=== PATIENT | male | born 1950 | race Caucasian/White ===

== ENCOUNTER → 2024-07-02 | Outpatient (CLI) | payer MEDICARE, BC, SELFPAY ==
--- NOTE | 2024-07-02 | XR_ITS ---
Examination: PA lateral chest 2 views Technique: Upright PA lateral chest 2 views Exam date and time: July 02, 2024 1211 hrs. Comparison December 06, 2023 Indications: Extensive bilateral cavitary parenchymal disease on chest x-ray December 25, [address] chest October 02, 2023 Findings: Worsening cavitary parenchymal disease in the left lung Significant parenchymal disease in the right upper lobe Normal heart size Mild hyperexpansion Impression: Worsening cavitary parenchymal disease, especially in the left lung with bronchiectasis Consider repeat high resolution CT chest without contrast
[2024-07-02 13:19] LABS: Cardiac Risk Estimate 5.7 RATIO (4.0-6.7); Cholesterol 148 mg/dL (132-200); HDL Cholesterol 26 mg/dL (40-60); LDL Cholesterol,Calculated 98 mg/dL (0-130); Triglycerides 119 mg/dL (30-150)
== END | disposition home or self-care (01) ==
LOC: CDIM 11:40 → COPL 12:16
PROVIDERS: PCP Family Medicine; Referring Provider Internal Medicine Cardiovascular Disease; Visit Provider Specialist
DX: J98.4 Other disorders of lung (principal); J47.9 Bronchiectasis, uncomplicated; E78.00 Pure hypercholesterolemia, unspecified
CPT/HCPCS: 36415; 71046; 80061

== ENCOUNTER 2024-07-29 16:48 | Inpatient (IN) | payer MEDICARE, BC, SELFPAY ==
[2024-07-29 16:52] VITALS: BP 123/67; PULSE 92; RESP 16; TEMP 36.6; O2SAT 93; BMI 18.9
[2024-07-29 17:06] VITALS: PULSE 61; RESP 17; O2SAT 88
--- NOTE | 2024-07-29 17:11 | XR_ITS ---
Examination: CT pelvis without intravenous contrast. 2-D sagittal and coronal reconstructions. Date and time of exam:July 29, 2024 1756 hours INDICATIONS: Ground-level fall today with injury to the pelvis, pelvic and hip pain CTDI: vol (mGy) :4.96 DLP: (mGycm) : 174 Technique: Multiple 3 mm axial sections of the pelvis have been obtained with the 64 slice high resolution scanner. 2-D sagittal and coronal reconstructions. Low dose protocols were performed. One or more of the following dose reduction techniques were used; automated exposure control, adjustment of the mA and/or KV according to patient size, use of iterative reconstruction technique. Findings: Prominent osteopenia Iliac bones acetabular regions intact Hips appear intact no hip dislocations Acute fracture fifth sacral segment with angulation and 2 mm offset, sagittal image 121 No pelvic hematoma Urinary bladder intact IMPRESSION: Acute fracture fifth sacral segment with angulation and mild offset
--- NOTE | 2024-07-29 17:11 | XR_ITS ---
Examination: CT lumbar spine, without contrast. 2-D sagittal reconstructions. 2-D coronal reconstructions. 3-D reconstructions. Date and time of exam:July 29, 2024 1756 hours INDICATIONS: Ground-level fall today with injured lower back, lower back and pelvic pain CTDI: vol (mGy):14.3 DLP: (mGycm):480 Technique: Multiple 1.25 mm axial sections of the lumbar spine without intravenous contrast have been obtained. 2-D sagittal and coronal reconstructions have been obtained. 3-D reconstructions have been obtained. Low dose protocols were performed. One or more of the following dose reduction techniques were used; automated exposure control, adjustment of the mA and/or KV according to patient size, use of iterative reconstruction technique. Findings: Severe osteopenia Acute compression fracture T12, depression superior endplate, reduction in height 20% Retropulsion of the posterior superior margin of this vertebral body 2 mm The pedicles and laminae at this level are intact No lumbar fracture Advanced disc narrowing L4-L5 IMPRESSION: Acute mild compression fracture T12
--- NOTE | 2024-07-29 17:11 | EKG_ITS ---
[facility] Test Date: 2024-07-29 Pat Name: GARFIELD HUYNH Department: Room: - Gender: Male Director [place]: : [id number] Requested By: Patrick Tomas Order Number: [id number] Reading MD: Patrick Tomas Measurements Intervals [place] Rate: 84 P: 55 [place]: 176 QRS: 75 QRSD: 72 T: 62 QT: 373 QTc: 443 Interpretive Statements SINUS RHYTHM POSSIBLE LEFT ATRIAL ENLARGEMENT [-0.1mV P-WAVE IN V1/V2] Compared to ECG 09/29/2023 05:59:37 No significant changes /store/S0/[id number]/[id number].pdf
--- NOTE | 2024-07-29 17:11 | XR_ITS ---
Examination: CT brain head without contrast. 2-D sagittal coronal reconstructions Date and time of exam:July 29, 2024 at 1755 hours INDICATIONS: Ground-level fall today with injury to the head, followed by head pain and weakness CTDI: vol (mGy):45.8 DLP: (mGycm):914 Technique: Multiple CT axial sections of the brain have been obtained, 5 mm slice thickness. Contrast has not been administered. 2-D sagittal, coronal reconstructions have been obtained Low dose protocols were performed. One or more of the following dose reduction techniques were used; automated exposure control, adjustment of the mA and/or KV according to patient size, use of iterative reconstruction technique. Findings: No significant ventricular enlargement. Intra-axial or extra-axial hemorrhage density is not seen. No mass effect or midline shift Basal cisterns are not remarkable. Fourth ventricle is midline. Cranial vault intact. Impression: Negative for acute hemorrhage, mass effect or midline shift
[2024-07-29 17:16] VITALS: BP 131/68; PULSE 87; RESP 18; TEMP 36.9; O2SAT 93
--- NOTE | 2024-07-29 17:16 | PD.EDFALL ---
ED Fall Injury RME/HPI General Chief Complaint: Fall Stated Complaint: FALL Time Seen by Provider: 07/29/24 17:09 Arrival date/time: 07/29/24 16:48 74 year old male with past medical history dementia, HDL, present to emergency room via EMS with c/o of unwitness GLF at home in the bathroom. per ems found patient sitting on the ground. patient is a poor historian. No fevers No unexplained weight loss of night sweats No recent surgeries or recurrent bacterial infections No IVDU Patient is not immunocompromised Denies any new focal neurological deficits or new motor weakness Denies bowel or bladder incontinence or saddle anesthesia LOCATION: diffuse low back SEVERITY: Symptoms are described as being severe with limitations on activities of daily living QUALITY: Symptoms are described as being dull or achy CONTEXT: GLF in bathroom today DURATION/TIMING: The symptoms started approximately one day ago and have been constant this then. ASSOCIATED SYMPTOMS: The patient is unable to identify any other associated symptoms. MODIFYING FACTORS: The patient is unable to identify any alleviating or aggravating symptoms. PERTINENT ROS: no fevers, no IVDU, denies any ripping or tearing sensations, no associated abdominal pain, no focal neurological deficits and denies any saddle anesthesia, and no bowel or bladder incontinence REVIEW OF SYSTEMS: See History of Present Illness - with the exception of those mentioned in the history of present illness, all other systems reviewed and reported as negative GENERAL: In general the patient is awake, interactive, in an emergency department gurney. HEAD/EYES/EARS/NOSE/THROAT: normo-cephalic, atraumatic, mucus membranes are moist, anicteric, palpebral conjunctiva is pink, trachea is midline. CARDIOVASCULAR: regular rate and regular rhythm, no murmurs, heart sounds are not distant, strong pulses in all four extremities that are equal and symmetric bilateral upper and lower extremities, normal capillary refill. CHEST/PULMONARY: normal chest rise and fall, good air movement, clear to auscultation bilaterally, normal inspiratory to expiratory ratios without evidence of respiratory distress. NECK: No midline/Paraspinal tenderness, no step off ROM/Strenght intact No Kernig and bruzinski sign. No trauma ABDOMEN: soft, not tender, no masses appreciated BACK:+ lower paraspinal tenderness, normal range of motion without pain. NEUROLOGICAL: cranio-facial features are symmetric, moves all four extremities equally without obvious limitations or weakness. EXTREMITY: no tenderness to palpation over the long bones or large joints of the bilateral upper and lower extremities, no joint swelling, no joint erythema, no signs of trauma, no unilateral leg swelling and no peripheral edema. SKIN: warm, dry, well-perfused, no jaundice, no rash, no telangiectasias or petechia. PSYCH: calm, cooperative, no evidence of psychosis or agitation Related Data Home Medications ?Medication ?Instructions ?Recorded ?Confirmed aspirin 81 mg tablet,delayed 81 mg PO BID PRN Pain 09/29/23 09/29/23 release atorvastatin 20 mg tablet 20 mg PO QPM 09/29/23 09/29/23 cholecalciferol (vitamin D3) 125 125 mcg PO QDAY 09/29/23 09/29/23 mcg (5,000 unit) tablet (Vitamin D3) diclofenac sodium 1 % topical gel 2 - 4 g topical BID PRN Pain 09/29/23 09/29/23 donepezil 10 mg tablet 20 mg PO HS 09/29/23 09/29/23 famotidine 40 mg tablet 40 mg PO HS 09/29/23 09/29/23 memantine 5 mg tablet 5 mg PO BID 09/29/23 09/29/23 montelukast 10 mg tablet 10 mg PO QPM 09/29/23 09/29/23 Allergies Allergy/AdvReac Type Severity Reaction Status Date / Time No Known Allergies Allergy Verified 09/20/23 14:03 Course Course Course Narrative: DISPOSITION: Emergency Department nursing documentation was reviewed including triage complaint, associated symptoms, administration of medications, response to therapy and vital signs. Given the history, physical exam, and review of laboratory and imaging studies the patient is determined to be unsafe for discharge and is being moved into the hospital for further diagnostic tests, treatments, stabilization, and monitored response to therapy. I communicated the history, physical exam, pertinent laboratory and imaging studies to the inpatient physician. The inpatient physician has access to electronic copies of all emergency department laboratory testing and imaging studies as well as medications ordered and administered. Quality Measures none Orders Category Date Time Status Admit to Inpatient Status Routine Admission 07/29/24 20:01 Active Patient Condition Routine Admission 07/29/24 20:00 Ordered Activity as Tolerated Routine Care 07/29/24 20:01 Ordered Blood glucose [Bedside Blood Glucose] NOW Care 07/29/24 17:13 Active EKG (ED ONLY) *Do not use* NOW Care 07/29/24 17:12 Completed Notify provider NEEDED Care 07/29/24 20:00 Active Consult to Orthopedic Stat Cons 07/29/24 19:17 Ordered Referral Physical Therapy Routine Cons 07/29/24 20:02 Active Diet Cardiac Diet 07/30/[address] head/brain wo con Stat Exams 07/29/24 17:[address] lumbar spine wo con Stat Exams 07/29/24 17:[address] pelvis wo con Stat Exams 07/29/24 17:11 Completed EKG (ED Only) Stat Exams 07/29/24 17:11 Draft XR chest 1V portable Stat Exams 07/29/24 20:00 Ordered Basic Metabolic Panel AM DRAW Lab 07/30/24 05:00 Ordered Basic Metabolic Panel AM DRAW Lab 07/31/24 05:00 Ordered Basic Metabolic Panel AM DRAW Lab 08/01/24 05:00 Ordered CBC AM DRAW Lab 07/30/24 05:00 Ordered CBC AM DRAW Lab 07/31/24 05:00 Ordered CBC AM DRAW Lab 08/01/24 05:00 Ordered CBC Stat Lab 07/29/24 18:16 Completed CMP [Comprehensive Metabolic Panel] Stat Lab 07/29/24 18:16 Results Procalcitonin Stat Lab 07/29/24 20:00 Ordered Troponin I Stat Lab 07/29/24 18:16 Results UA [Urinalysis] Stat Lab 07/29/24 20:00 Ordered Acetaminophen Tab [Tylenol Tab] Med 07/29/24 20:00 Active 650 mg PO Q6H PRN Enoxaparin [Lovenox] Med 07/30/24 09:00 Ordered 40 mg SC QDAY HYDROcodone*/APAP 5/325 [[place] 5/325] Med 07/29/24 20:00 Active 1 tab PO Q4HR PRN Sodium Chloride 0.9% 1000 ml [Ns] 1,000 ml Med 07/29/24 20:00 Active IV 75 mls/hr Code Status Routine Oth 07/29/24 20:00 Ordered Reevaluation(s) Reevaluation #1: pt is comfortable with admission and getting PT/OT. decline any pain medication, pain is worsen on movement/ambulation Vital Signs Vital signs: Vital Signs Temperature 97.8 F 07/29/24 16:52 Pulse Rate 92 07/29/24 16:52 Respiratory Rate 16 07/29/24 16:52 Blood Pressure 123/67 07/29/24 16:52 Pulse Oximetry (%) 93 L 07/29/24 16:52 Oxygen Delivery Method Room Air 07/29/24 16:52 Procedures -ED EKG Interpretation #1: Date of EK07/29/24 Rate: 84 Interpretation: Reviewed by me EKG Impression: No acute ST-T changes, Sinus arrhythmia and No ischemic changes Fall Patient data External records reviewed:: [facility] previous records and EMS form Clinical information provided by:: EMS Social determinants that could affect healthcare access:: none (dementia ) Patient has the following chronic illnesses:: as stated in chart How is presenting disease/condition affected by chronic disease/condition?: exacerbated by Evaluation data The following diagnostics were reviewed and interpreted by me:: lab results, radiology exam(s) and EKG tracing(s) Lab and/or radiology exams considered but not ordered:: n/a Interpretation Summary: Acute fracture fifth sacral segment with angulation and mild offset No significant ventricular enlargement. Intra-axial or extra-axial hemorrhage density is not seen. No mass effect or midline shift Basal cisterns are not remarkable. Fourth ventricle is midline. Cranial vault intact. ? Impression:? ? Negative for acute hemorrhage, mass effect or midline shift Findings: ? Severe osteopenia Acute compression fracture T12, depression superior endplate, reduction in height 20% Retropulsion of the posterior superior margin of this vertebral body 2 mm The pedicles and laminae at this level are intact No lumbar fracture Advanced disc narrowing L4-L5 ? IMPRESSION: ? Acute mild compression fracture T12 No significant ventricular enlargement. Intra-axial or extra-axial hemorrhage density is not seen. No mass effect or midline shift Basal cisterns are not remarkable. Fourth ventricle is midline. Cranial vault intact. ? Impression:? ? Negative for acute hemorrhage, mass effect or midline shift CBC/CMP wnl trop pending Medications / Prescriptions Medications or Prescriptions considered but not ordered:: n/a Medication administrations:: Medication Administration History Acetaminophen (Acetaminophen 325 Mg Tablet) 650 mg PO Q6H PRN PRN Reason: Fever >101.5 Stop: 08/28/24 19:59 Hydrocodone Bitart/Acetaminophen (Hydrocodone/Apap 5/325 Tablet) 1 tab PO Q4HR PRN PRN Reason: PAIN SCALE 4-6 (Moderate Stop: 08/03/24 19:59 Enoxaparin Sodium (Enoxaparin Sod Inj 40 Mg/0.4 Ml Syringe) 40 mg SC QDAY [facility] Stop: 08/13/24 08:59 Sodium Chloride (Ns) 1,000 mls @ 75 mls/hr IV .[id number] [facility] Stop: 08/28/24 19:59 n/a Consultations Consultation(s) initiated? (list below): Yes Consultation #1 (Physician, Specialty, Details): 1910 dr. krishnan, no surgery intervention, admission to set up out patient PT Consultation #2 (Physician, Specialty, Details): [address] Major will accept patient for admission Diagnosis Fall Differential Diagnosis: syncope, compression fracture and other (anemia, mi/nstemi, contusion ) Most likely diagnosis given after review of the tests above:: back, sacral fracture Admission Indicated Admission indicated?: indicated Admission Request Was there a request for admission?: Yes Admission Attestation Admission request attestation: Discussed case with [] from Hospitalist service regarding admission. Discussed patients ED course, exam findings, labs, and radiology results. The Hospitalist [agrees,declines] to accept the patient for admission. Disposition Plan Disposition Plan: Admit Discharge Plan Plan Patient Disposition: Admit Acute Care w/in Hospital Prescriptions/Referrals Prescriptions/Med Rec: No Action atorvastatin 20 mg Tablet 20 mg PO QPM donepezil 10 mg tablet 20 mg PO HS Patient Comments: TAKE 2 TABLET (20 MG) BY ORAL ROUTE ONCE DAILY IN THE EVENING famotidine 40 mg tablet 40 mg PO HS Patient Comments: TAKE 1 TABLET BY MOUTH EVERY DAY AT BEDTIME FOR 90 DAYS aspirin 81 mg Tablet,Delayed Release (Dr/Ec) 81 mg PO BID PRN (Reason: Pain) montelukast 10 mg Tablet 10 mg PO QPM memantine 5 mg tablet 5 mg PO BID diclofenac sodium 1 % gel 2 - 4 g TOPICAL BID PRN (Reason: Pain) Patient Comments: APPLY 2-4G EXTERNALLY TWICE A DAY NEEDED 30 DAYS cholecalciferol (vitamin D3) [Vitamin D3] 125 mcg (5,000 unit) Tablet 125 mcg PO QDAY Referrals: No Primary/Family,Physician [Primary Care Provider] - In 1 week Problem List Clinical Impression: Closed T12 fracture, Closed sacral fracture Patient/Caregiver Discharge Instructions Print Language: Greek Stand Alone Forms: [employer] Award Info., Patient Portal Info Letter
--- NOTE | 2024-07-29 17:50 | PC.NURSE ---
Patient left floor to get a procedure.
[2024-07-29 19:05] VITALS: BP 131/68; PULSE 84; RESP 3; TEMP 36.5; O2SAT 94
--- NOTE | 2024-07-29 19:08 | PC.NURSE ---
Patrick HUITRON at bedside speaking with daughter at bedside regarding results and plan of care.
[2024-07-29 19:10] LABS: Basophils # (Auto) 0.1 Thou/mm3 (0.0-0.2); Basophils % (Auto) 1 % (0-2.5); Eosinophils % (Auto) 0 % (0-10); Hemoglobin 11.2 g/dL (13.5-16.0); Immature Granulocytes % (Auto) 1 % (0-0); Immature Granulocytes Auto 0.12 Thou/mm3 (0.00-0.00); Lymphocytes # (Auto) 1.4 Thou/mm3 (1.0-4.8); Lymphocytes % (Auto) 10 % (10-50); Mean Corpuscular HGB Conc 33.9 g/dl (31.0-37.0); Mean Corpuscular Hemoglobin 27.7 pg (25.0-35.0); Mean Corpuscular Volume 82 fL (80-100); Monocytes # (Auto) 1.5 Thou/mm3 (0.0-0.8); Monocytes % (Auto) 10 % (0-12); Neutrophils # (Auto) 11.1 Thou/mm3 (1.8-7.7); Neutrophils % (Auto) 78 % (37-80); Nucleated Red Blood Cell % 0 /100 WBC (0); Platelet Count 611 Thou/mm3 (140-440); RDW Standard Deviation 46.9 fL (35.1-43.9); Red Blood Count 4.05 Miln/mm3 (4.50-5.90); White Blood Count 14.2 Thou/mm3 (3.8-10.6)
[2024-07-29 19:58] LABS: Alanine Aminotransferase 19 U/L (10-49); Albumin, Serum 3.4 gm/dL (3.4-4.8); Albumin/Globulin Ratio 0.9 (1.2-2.2); Alkaline Phosphatase 169 U/L (46-116); Anion Gap 9 (7-16); Aspartate Amino Transferase 29 U/L (0-34); BUN/Creatinine Ratio 15 Ratio (12-20); Bilirubin,Total 0.5 mg/dL (0.3-1.2); Blood Urea Nitrogen 9 mg/dL (9-23); Calcium 8.8 mg/dL (8.3-10.6); Calcium (Corrected) 9.3 mg/dL (8.5-10.1); Carbon Dioxide 27.1 mMol/L (20.0-31.0); Chloride 99 mMol/L (98-107); Creatinine (Component) 0.6 mg/dL (0.6-1.3); Estimated Creatinine Clearance 77.8 mL/min (>60); Globulin 3.8 gm/dL (2.3-3.5); Glucose 93 mg/dL (74-106); Osmolality,Calculated 268 (275-295); Potassium 4.5 mMol/L (3.4-5.1); Sodium 135 mMol/L (136-145); Total Protein 7.2 gm/dL (5.7-8.2); eGFR > 60 See Note
--- NOTE | 2024-07-29 20:00 | XR_ITS ---
Examination: AP chest single view TECHNIQUE: AP portable upright chest single view Exam date and time: July 29, 2024 204 hours INDICATIONS: Admission chest x-ray today, ground-level fall FINDINGS: Worsening bilateral extensive parenchymal disease Normal heart size Significant osteopenia IMPRESSION: Worsening extensive bilateral parenchymal disease, differential would include pneumonia bilaterally superimposed upon extensive bilateral chronic parenchymal disease Please see the CT chest report October 02, 2023
[2024-07-29] MEDS: SODIUM CHLORIDE 0.9% 1000 ML 1,000 ML 75 ML IV (20:11)
--- NOTE | 2024-07-29 20:20 | PD.EVENT ---
Documentation for date of: 07/29/24 Event Note Event Note: A 74-year-old male presented to the ER with the chief complaint of a fall. The patient fell in the bathroom at home while unattended. He was found on the floor and unable to get up. This was the third fall within the past month. He reported back pain following the fall but no head trauma. He has advanced dementia with worsening cognitive function, requiring full assistance at home, where he lives with his . EMS was called, and he was brought to the hospital for further evaluation. There was no report of fever, dizziness, chest pain, or shortness of breath prior to the fall. The patient has a history of advanced dementia, HTN, bronchiectasis, hyperlipidemia, and Spicer's esophagus. He has no surgical history. Current medications include donepezil, vitamin D, ferrous gluconate, cyproheptadine, pantoprazole, memantine, quetiapine, combivent, metoprolol, montelukast, and sertraline. He does not smoke or drink. He has previously been hospitalized for pulmonary issues, including chest tube placement. He uses a walker or wheelchair at home. Home oxygen was being arranged due to SpO2 occasionally dropping to 89?92%. Code status is full; documentation was provided by family. In ER, the patient was initially evaluated with vital signs recorded as temp 97.8, HR 92, RR 16, BP 123/67. Laboratory results revealed WBC 14.2, Hb 11.2, Plt 611, Na 135, K 4.5, BUN [address], [address] demonstrated an acute fracture of the fifth sacral segment with angulation and mild offset, and an acute mild compression fracture of T12. EKG showed sinus rhythm. Ortho was consulted and recommended no surgical intervention. The patient was admitted for inpatient care and to coordinate outpatient PT evaluation. #Sacral and Vertebral Compression Fractures Assessment: - Mechanical fall in elderly patient with advanced dementia. - CT: Acute S5 fracture with angulation/offset; acute mild compression fracture of T12. - No neurological deficits; non-operative per ortho. - History of recurrent falls; underlying mobility limitations (walker/wheelchair use). Plan: - Pain management. - Fall precautions. - PT evaluation for mobility, transfer training, and safe ambulation strategies. - Outpatient bone health workup. #Advanced Dementia Assessment: - Progressive cognitive decline; requires full ADL assistance. - High fall risk. - Behavioral symptoms managed with antipsychotics and antidepressants. Plan: - Continue donepezil, memantine, quetiapine and sertraline. - Monitor behavioral symptoms #Hypertension Assessment: - History of HTN; currently normotensive on metoprolol. - No acute hypertensive complications noted. Plan: - Continue current antihypertensive regimen. - Monitor BP during hospitalization; adjust therapy if clinically indicated.
[2024-07-29 20:35] LABS: Troponin I < 0.002 ng/mL (0.0-0.045)
[2024-07-29 20:48] VITALS: BP 129/74; PULSE 88; RESP 20; TEMP 36.8; O2SAT 96
--- NOTE | 2024-07-29 20:58 | PD.RESHP ---
Documentation for date of: 07/29/24 HPI History of Present Illness Chief complaint: fall down History of present illness: HPI: A 74-year-old male patient with past medical history of dementia, hyperlipidemia, Spicer's esophagus, bronchiectasis, presented to the ED due to recent history of fall down. Patient at baseline is confused and oriented only to self patient was not aware of his presentation and why he is in the hospital. Most of the history was. Taken from the patient's chart. As per the daughter who spoke with the emergency doctor and attending physician patient was found on the floor of the bathroom when he fell down while he was unattended. Reportedly this is his third fall for the past month. After the fall patient reported back pain. 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 There was no history of loss of consciousness or head trauma. At the ED patient was found to have normal vital signs, CBC was significant for WBC of 14.2, hemoglobin 11.2. CMP was within normal limits, urinalysis still pending CT of the brain was negative for any hemorrhage or mass effect, however lumbar spine CT showed acute mild compression fracture of T12. Pelvic CT scan showed acute fracture of the fifth sacral segment with angulation and mild offset. EKG was within normal limits. PMH: advanced dementia, bronchiectasis, hyperlipidemia and Spicer's esophagus. PSH: none. SH: No smoking tobacco use illicit drugs. Stopped socially drinking alcohol 2 years ago. Lives with his at home who is his primary oil lease buyer and decision maker. FH: none. Allergies: NKA. Medications: Aspirin, atorvastatin, vitamin D, diclofenac, donepezil, famotidine, memantine, montelukast. Review of Systems Review of Systems ROS Unobtainable: unobtainable due to mental status Exam Vital Signs Temp Pulse Resp BP Pulse Ox O2 Del Method 98.2 F 88 20 129/74 96 Room Air 07/29/24 20:48 07/29/24 20:48 07/29/24 20:48 07/29/24 20:48 07/29/24 20:48 07/29/24 20:48 Narrative Exam GEN: AOx1, able to speak full sentences, temporal wasting. HEENT: NC/AC, oral mucosa moist, neck supple. CVS: RRR, Soft systolic murmur-S2 present, No JVD. RESP: CTAB. GI: Soft, non distended, non tender, NBS. MSK: able to move all 4 limbs, no lower extremity edema. SKIN: warm and dry. 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 Results: Labs 07/29/24 18:16 07/29/24 18:16 Labs: Short CBC 07/29/24 Range/Units 18:16 WBC 14.2 H (3.8-10.6) Thou/mm3 Hgb 11.2 L (13.5-16.0) g/dL Hct 33.0 L (41.0-53.0) % Plt Count 611 H (140-440) Thou/mm3 BMP 07/29/24 18:16 Sodium 135 L Potassium 4.5 Chloride 99 Carbon Dioxide 27.1 BUN 9 Creatinine 0.6 Glucose 93 Calcium 8.8 Cardiac Enzymes 07/29/24 Range/Units 18:16 Troponin I < 0.002 (0.0-0.045) ng/mL Liver Function 07/29/24 Range/Units 18:16 Total Bilirubin 0.5 (0.3-1.2) mg/dL AST 29 (0-34) U/L ALT 19 (10-49) U/L Alkaline Phosphatase 169 H (46-116) U/L Albumin 3.4 (3.4-4.8) gm/dL Quality Measures Quality Measures none Advance care planning discussed with:: patient Medications Home Medications and Allergies Home Medications ?Medication ?Instructions ?Recorded ?Confirmed ?Type aspirin 81 mg tablet,delayed 81 mg PO BID PRN Pain 09/29/23 09/29/23 History release atorvastatin 20 mg tablet 20 mg PO QPM 09/29/23 09/29/23 History cholecalciferol (vitamin D3) 125 125 mcg PO QDAY 09/29/23 09/29/23 History mcg (5,000 unit) tablet (Vitamin D3) diclofenac sodium 1 % topical gel 2 - 4 g topical BID PRN Pain 09/29/23 09/29/23 History donepezil 10 mg tablet 20 mg PO HS 09/29/23 09/29/23 History famotidine 40 mg tablet 40 mg PO HS 09/29/23 09/29/23 History memantine 5 mg tablet 5 mg PO BID 09/29/23 09/29/23 History montelukast 10 mg tablet 10 mg PO QPM 09/29/23 09/29/23 History Allergies Allergy/AdvReac Type Severity Reaction Status Date / Time No Known Allergies Allergy Verified 09/20/23 14:03 Visit Medications Acetaminophen (Acetaminophen 325 Mg Tablet) 650 mg PO Q6H PRN PRN Reason: Fever >101.5 Stop: 08/28/24 19:59 Hydrocodone Bitart/Acetaminophen (Hydrocodone/Apap 5/325 Tablet) 1 tab PO Q4HR PRN PRN Reason: PAIN SCALE 4-6 (Moderate Stop: 08/03/24 19:59 Cyproheptadine HCl (Cyproheptadine Hcl 4 Mg Tablet) 2 mg PO BID [facility]; Protocol Stop: 08/28/24 20:59 Donepezil HCl (Donepezil Hcl 5 Mg Tablet) 10 mg PO DAILY [facility] Stop: 08/29/24 08:59 Enoxaparin Sodium (Enoxaparin Sod Inj 40 Mg/0.4 Ml Syringe) 40 mg SC QDAY [facility] Stop: 08/13/24 08:59 Sodium Chloride (Ns) 1,000 mls @ 75 mls/hr IV .[id number] [facility] Stop: 08/28/24 19:59 Last Admin: 07/29/24 20:11 Dose: 75 mls/hr Memantine (Memantine Hcl 5 Mg Tablet) 5 mg PO BID [facility] Stop: 08/28/24 20:59 Metoprolol Succinate (Metoprolol Succinate Xl 25 Mg Tabcr) 25 mg PO QDAY [facility] Stop: 08/29/24 08:59 Montelukast Sodium (Montelukast Sodium 10 Mg Tablet) 10 mg PO HS [facility] Stop: 08/28/24 20:59 Pantoprazole Sodium (Pantoprazole 40 Mg Tablet) 40 mg PO BID [facility] Stop: 08/28/24 20:59 Quetiapine Fumarate (Quetiapine Fumarate 25 Mg Tablet) 25 mg PO QDAY [facility] Stop: 08/29/24 08:59 Sertraline HCl (Sertraline Hcl 25 Mg Tablet) 50 mg PO HS [facility] Stop: 08/28/24 20:59 Assessment & Plan Plan Summary: A 74-year-old male patient with past medical history of dementia, hyperlipidemia, Spicer's esophagus, bronchiectasis, presented to the ED due to recent history of fall down. Patient at baseline is confused and oriented only to self patient was not aware of his presentation and why he is in the hospital. Patient was admitted for management of T12 and sacral fractures. Assessment and plan #Sacral segment fracture #T12 Vertebral body acute Compression Fractures Assessment: - Mechanical fall in elderly patient with advanced dementia. - CT: Acute S5 fracture with angulation/offset; acute mild compression fracture of T12. - No neurological deficits; non-operative per ortho. - History of recurrent falls; underlying mobility limitations (walker/wheelchair use). Plan: - Orhtopedic Dr Cuello was consulted, Recommendations appreiciated. - Pain management. - Fall precautions. - PT evaluation for mobility, transfer training, and safe ambulation strategies. - Outpatient bone health workup. #Advanced Dementia Assessment: - Progressive cognitive decline; requires full ADL assistance. - High fall risk. - Behavioral symptoms managed with antipsychotics and antidepressants. Plan: - Continue donepezil, memantine, quetiapine and sertraline. - Monitor behavioral symptoms. # Hx of Toney's eosophageaous Plan - Start the patient on protonix 40mg PO BID. #Hypertension Assessment: - History of HTN; currently normotensive on metoprolol. - No acute hypertensive complications noted. Plan: - Continue current antihypertensive regimen. - Monitor BP during hospitalization; adjust therapy if clinically indicated. Hospital Maintenance: FEN: Cardiac diet DVT ppx: Enoxaparin GI ppx: Protonix IV lines: PIV Lopez: None Code s tatus: Full code Dispo: Med-surg Patient's plan and care discussed with my attending, Dr. Pedrito Yanez MD Internal Medicine PGY-2 Attending Provider Attestation/Addendum Pt was evaluated and plan formulated together with the housestaff team. I have reviewed the residents note above and agree with most of its content. Please refer to the residents note for additional details.
[2024-07-29] MEDS: PANTOPRAZOLE 40 MG TABLET PO (21:59)
[2024-07-29 22:31] VITALS: BP 138/81; PULSE 86; RESP 18; TEMP 37.3; O2SAT 91; BMI 18.7
[2024-07-29] MEDS: MEMANTINE HCL 5 MG TABLET PO (22:42)
[2024-07-29] MEDS: MONTELUKAST SODIUM 10 MG TABLET PO (22:42)
[2024-07-29] MEDS: SERTRALINE HCL 25 MG TABLET 50 MG PO (22:42)
[2024-07-30] VITALS (8 sets, daily range): BP systolic 107–146; BP diastolic 64–85; PULSE 73–103; RESP 16–18; TEMP 36.1–37; O2SAT 92–94; BMI 13.0; BMI 18.7
--- NOTE | 2024-07-30 01:01 | PC.RT ---
Consultation complete. pt's oxygen saturation on room air >92%, with clear breath sounds heard throughout. No respiratory distress noted.
[2024-07-30 05:45] LABS: Collection Type, Urine Catheter; Squamous Epithelial Cell,Urine 0 /hpf (0-5)
[2024-07-30 06:02] LABS: Basophils # (Auto) 0.1 Thou/mm3 (0.0-0.2); Basophils % (Auto) 1 % (0-2.5); Eosinophils # (Auto) 0.2 Thou/mm3 (0.0-0.5); Eosinophils % (Auto) 1 % (0-10); Hematocrit 30.7 % (41.0-53.0); Hemoglobin 10.4 g/dL (13.5-16.0); Immature Granulocytes % (Auto) 1 % (0-0); Immature Granulocytes Auto 0.07 Thou/mm3 (0.00-0.00); Lymphocytes # (Auto) 1.6 Thou/mm3 (1.0-4.8); Lymphocytes % (Auto) 13 % (10-50); Mean Corpuscular HGB Conc 33.9 g/dl (31.0-37.0); Mean Corpuscular Hemoglobin 27.8 pg (25.0-35.0); Mean Corpuscular Volume 82 fL (80-100); Monocytes # (Auto) 1.5 Thou/mm3 (0.0-0.8); Monocytes % (Auto) 12 % (0-12); Neutrophils % (Auto) 73 % (37-80); Nucleated Red Blood Cell % 0 /100 WBC (0); Platelet Count 572 Thou/mm3 (140-440); RDW Standard Deviation 46.8 fL (35.1-43.9); Red Blood Count 3.74 Miln/mm3 (4.50-5.90); White Blood Count 12.5 Thou/mm3 (3.8-10.6)
[2024-07-30 06:05] LABS: Bilirubin,Urine Negative (Negative); Blood,Urine Negative (Negative); Clarity,Urine Clear (Clear/Hazy); Color,Urine Yellow (Lt Yel-Yel); Glucose, Urine Negative (Negative); Ketones,Urine Trace (Negative); Leukocyte Esterase,Urine Negative (Negative); Nitrite,Urine Negative (Negative); PH,Urine 6.5 (5.0-7.0); Protein,Urine Negative (Neg - Trace); RBC,Urine 9 /hpf (0-3); Specific Gravity,Urine 1.021 (1.001-1.035); WBC,Urine 1 /hpf (0-5)
[2024-07-30 06:40] LABS: Anion Gap 8 (7-16); BUN/Creatinine Ratio 14 Ratio (12-20); Blood Urea Nitrogen 7 mg/dL (9-23); Calcium 8.6 mg/dL (8.3-10.6); Carbon Dioxide 26.7 mMol/L (20.0-31.0); Chloride 101 mMol/L (98-107); Creatinine (Component) 0.5 mg/dL (0.6-1.3); Estimated Creatinine Clearance 92.1 mL/min (>60); Glucose 81 mg/dL (74-106); Osmolality,Calculated 268 (275-295); Potassium 4.2 mMol/L (3.4-5.1); Sodium 136 mMol/L (136-145); eGFR > 60 See Note
[2024-07-30] MEDS: ENOXAPARIN SOD INJ 40 MG/0.4 ML SYRINGE SC (08:08)
[2024-07-30] MEDS: DONEPEZIL HCL 5 MG TABLET 10 MG PO (08:09)
[2024-07-30] MEDS: PANTOPRAZOLE 40 MG TABLET PO ×2 (08:10→20:17)
[2024-07-30] MEDS: METOPROLOL SUCCINATE XL 25 MG TABCR PO (08:10)
[2024-07-30] MEDS: MEMANTINE HCL 5 MG TABLET PO ×2 (08:10→20:17)
[2024-07-30] MEDS: QUEtiapine FUMARATE 25 MG TABLET PO (08:10)
--- NOTE | 2024-07-30 08:34 | PC.SS ---
Initial assessment: this is 74 year old male admitted for fall. Patient has history of severe dementia and information was obtained by patient's , Callie Goel. Patient lives at home with spouse at confirmed home address on facesheet. Patient utilizes a wheelchair at home to assist with transferring. Patient requires assistance with completion of ADL's. Patient PCP is Dr. Nessa Rodrigues. Patient also followed by Dr. Puentes and Dr. Hernandez. Patient previously aligned with [facility]. Callie informs they will be providing hospital bed to the patient to be delivered this week. Callie is considering SNF placement however would like to see how patient progresses to make determination. Callie to be contacted as alternate surrogate decision maker for the patient. banking services officer to remain available for further needs. D/c plan: [facility] vs.SNF Next of kin: Callie
[2024-07-30] MEDS: SODIUM CHLORIDE 0.9% 1000 ML 1,000 ML 75 ML IV ×2 (08:56→23:47)
--- NOTE | 2024-07-30 12:36 | PC.SS ---
Addendum entered by QUINTIN Powell 07/30/24 16:45: Rounding note: pending pain management. Addendum entered by QUINTIN Powell 07/30/24 12:42: PT Maria Antonia informed she has ordered a back brace for the patient. Original Note: SS update: PT has recommended SNF. is agreeable to SNF. No preferred.
--- NOTE | 2024-07-30 14:12 | CONPN_ITS ---
Subjective Subjective Brief History: t12 fracture Narrative: Patient is a 74yo male with severe dementia with back pain and buttock pain after a fall. He is a poor historian and has severe dementia. His baseline ambulating status is unknown Exam Vital Signs Temp Pulse Resp BP Pulse Ox O2 Del Method 97.0 F 73 17 111/65 93 L Room Air 07/30/24 12:00 07/30/24 12:00 07/30/24 12:00 07/30/24 12:00 07/30/24 12:00 07/30/24 12:00 Additional findings Additional findings: NAD SILT 5/5 strength in IP/Q/H/TA/EHL/FHL bilaterally TTP CT of the lumbar spine demonstrate a t12 compression fracture with no retropulsion and a S5 fracture Objective - Ortho Labs 07/30/24 04:17 07/30/24 04:17 Labs: Laboratory Results - last 24 hr 07/29/24 07/30/24 07/30/24 18:16 04:17 04:45 WBC 14.2 H 12.5 H RBC 4.05 L 3.74 L Hgb 11.2 L 10.4 L Hct 33.0 L 30.7 L MCV 82 82 MCH 27.7 27.8 MCHC 33.9 33.9 RDW Std Deviation 46.9 H 46.8 H Plt Count 611 H 572 H D Neut % (Auto) 78 73 Lymph % (Auto) 10 13 Logan % (Auto) 10 12 Eos % (Auto) 0 1 Baso % (Auto) 1 1 Neut # (Auto) 11.1 H 9.0 H Lymph # (Auto) 1.4 1.6 Logan # (Auto) 1.5 H 1.5 H Eos # (Auto) 0.0 0.2 Baso # (Auto) 0.1 0.1 Immature Gran # (Auto) 0.12 H 0.07 H Absolute Nucleated RBC 0.00 0.00 Immature Gran % 1 H 1 H Nucleated RBC % 0 0 Sodium 135 L 136 Potassium 4.5 4.2 Chloride 99 101 Carbon Dioxide 27.1 26.7 Anion Gap 9 8 BUN 9 7 L Creatinine 0.6 0.5 L Estim Creat Clear Calc 77.8 92.1 eGFR > 60 > 60 BUN/Creatinine Ratio 15 14 Glucose 93 81 Calculated Osmolality 268 L 268 L Calcium 8.8 8.6 Corrected Calcium 9.3 Total Bilirubin 0.5 AST 29 ALT 19 Alkaline Phosphatase 169 H Troponin I < 0.002 Total Protein 7.2 Albumin 3.4 Globulin 3.8 H Albumin/Globulin Ratio 0.9 L Procalcitonin 0.10 Ur Collection Type Catheter Urine Color Yellow Urine Clarity Clear Urine pH 6.5 Ur Specific [place] 1.021 Urine Protein Negative Urine Glucose (UA) Negative Urine Ketones Trace Urine Blood Negative Urine Nitrite Negative Urine Bilirubin Negative Urine Urobilinogen (Auto) 8.0 Ur Leukocyte Esterase Negative Urine RBC 9 H Urine WBC 1 Ur Squamous Epith Cells 0 Urine Bacteria None Assessment & Plan Diagnosis (1) Closed sacral fracture: Status: Acute (2) Closed T12 fracture: Status: Acute Assessment Additional comments: Patient is 74yo male with no neurologic deficits and a sacral and t12 fracture - WBAT - TLSO brace - pt Documentation for date of: 07/30/24
--- NOTE | 2024-07-30 14:31 | ESPR_ITS ---
<Statement entered by Piper Rangel MD - 07/31/24 08:31> Patient was seen and examined by me personally. I have directly supervised and reviewed documentation by the team resident and agree with its findings with any exceptions or additional findings as below. Plan of care was discussed with the attending, Dr. Whitlock. Piper Rangel, PGY-2 Documentation for date of: 07/30/24 Subjective Subjective Interval history: 07/30/2024: Overnight admission for patient with baseline dementia who had an unwitnessed fall and was admitted after CT lumbar spine showed a T12 acute compression fracture along with the fifth sacral segment fracture. Patient seen and examined this morning does in fact have high degree of dementia and is only able to give me his name but not able to give me much history. Patient does respond to questions appropriately but has very poor memory. On examination there is a 5 out of 6 diastolic murmur noted on the left sternal base. At this time, we are completing a syncope workup for the patient as the fall was unwitnessed. Pain is being managed with multimodal analgesia and we are expecting discharge within the next 24 to 48 hours once orthostatic vitals were completed and physical therapy has assessed the patient for placement. Exam Vital Signs Temp Pulse Resp BP Pulse Ox O2 Del Method 97.0 F 73 17 111/65 93 L Room Air 07/30/24 12:00 07/30/24 12:00 07/30/24 12:00 07/30/24 12:00 07/30/24 12:00 07/30/24 12:00 Narrative Exam GEN: Awake, able to speak full sentences, temporal wasting. HEENT: NC/AC, oral mucosa moist, neck supple. CVS: RRR, Soft systolic murmur-S2 present, No JVD. RESP: CTAB. GI: Soft, non distended, non tender, NBS. MSK: able to move all 4 limbs, no lower extremity edema. SKIN: warm and dry. [employer]: AOx1, CN II-XII and Sensation grossly intact. Objective Labs 07/30/24 04:17 07/30/24 04:17 Labs: Laboratory Results - last 24 hr 07/29/24 07/30/24 07/30/24 18:16 04:17 04:45 WBC 14.2 H 12.5 H RBC 4.05 L 3.74 L Hgb 11.2 L 10.4 L Hct 33.0 L 30.7 L MCV 82 82 MCH 27.7 27.8 MCHC 33.9 33.9 RDW Std Deviation 46.9 H 46.8 H Plt Count 611 H 572 H D Neut % (Auto) 78 73 Lymph % (Auto) 10 13 Gregory % (Auto) 10 12 Eos % (Auto) 0 1 Baso % (Auto) 1 1 Neut # (Auto) 11.1 H 9.0 H Lymph # (Auto) 1.4 1.6 Gregory # (Auto) 1.5 H 1.5 H Eos # (Auto) 0.0 0.2 Baso # (Auto) 0.1 0.1 Immature Gran # (Auto) 0.12 H 0.07 H Absolute Nucleated RBC 0.00 0.00 Immature Gran % 1 H 1 H Nucleated RBC % 0 0 Sodium 135 L 136 Potassium 4.5 4.2 Chloride 99 101 Carbon Dioxide 27.1 26.7 Anion Gap 9 8 BUN 9 7 L Creatinine 0.6 0.5 L Estim Creat Clear Calc 77.8 92.1 eGFR > 60 > 60 BUN/Creatinine Ratio 15 14 Glucose 93 81 Calculated Osmolality 268 L 268 L Calcium 8.8 8.6 Corrected Calcium 9.3 Total Bilirubin 0.5 AST 29 ALT 19 Alkaline Phosphatase 169 H Troponin I < 0.002 Total Protein 7.2 Albumin 3.4 Globulin 3.8 H Albumin/Globulin Ratio 0.9 L Procalcitonin 0.10 Ur Collection Type Catheter Urine Color Yellow Urine Clarity Clear Urine pH 6.5 Ur Specific [place] 1.021 Urine Protein Negative Urine Glucose (UA) Negative Urine Ketones Trace Urine Blood Negative Urine Nitrite Negative Urine Bilirubin Negative Urine Urobilinogen (Auto) 8.0 Ur Leukocyte Esterase Negative Urine RBC 9 H Urine WBC 1 Ur Squamous Epith Cells 0 Urine Bacteria None Quality Measures Quality Measures none Advance care planning discussed with:: patient, spouse and child Assessment & Plan Assessment Current Active Medications: Generic Name Dose Route Start Last Admin Trade Name Freq PRN Reason Stop Dose Admin Acetaminophen 650 mg 07/29/24 20:00 Acetaminophen 325 Mg Tablet PO 08/28/24 19:59 Q6H PRN Fever >101.5 Hydrocodone Bitart/Acetaminophen 1 tab 07/29/24 20:00 Hydrocodone/Apap 5/325 Tablet PO 08/03/24 19:59 Q4HR PRN PAIN SCALE 4-6 (Moderate Cyproheptadine HCl 2 mg 07/29/24 21:00 07/30/24 08:19 Cyproheptadine Hcl 4 Mg Tablet PO 08/28/24 20:59 Not Given BID [facility] Protocol Donepezil HCl 10 mg 07/30/24 09:00 07/30/24 08:09 Donepezil Hcl 5 Mg Tablet PO 08/29/24 08:59 10 mg DAILY [facility] Administration Enoxaparin Sodium 40 mg 07/30/24 09:00 07/30/24 08:08 Enoxaparin Sod Inj 40 Mg/0.4 Ml Syringe SC 08/13/24 08:59 40 mg QDAY [facility] Administration Sodium Chloride 1,000 mls @ 75 mls/hr 07/29/24 20:00 07/30/24 08:56 Ns IV 08/28/24 19:59 75 mls/hr .[id number] [facility] Administration Memantine 5 mg 07/29/24 21:00 07/30/24 08:10 Memantine Hcl 5 Mg Tablet PO 08/28/24 20:59 5 mg BID [facility] Administration Metoprolol Succinate 25 mg 07/30/24 09:00 07/30/24 08:10 Metoprolol Succinate Xl 25 Mg Tabcr PO 08/29/24 08:59 25 mg QDAY [facility] Administration Montelukast Sodium 10 mg 07/29/24 21:00 07/29/24 22:42 Montelukast Sodium 10 Mg Tablet PO 08/28/24 20:59 10 mg HS [facility] Administration Pantoprazole Sodium 40 mg 07/29/24 21:00 07/30/24 08:10 Pantoprazole 40 Mg Tablet PO 08/28/24 20:59 40 mg BID [facility] Administration Quetiapine Fumarate 25 mg 07/30/24 09:00 07/30/24 08:10 Quetiapine Fumarate 25 Mg Tablet PO 08/29/24 08:59 25 mg QDAY [facility] Administration Sertraline HCl 50 mg 07/29/24 21:00 07/29/24 22:42 Sertraline Hcl 25 Mg Tablet PO 08/28/24 20:59 50 mg HS [facility] Administration Plan 74-year-old male patient with past medical history of dementia, hyperlipidemia, Spicer's esophagus, bronchiectasis, presented to the ED due to recent history of fall down. Patient at baseline is confused and oriented only to self patient was not aware of his presentation and why he is in the hospital. Patient was admitted for management of T12 and sacral fractures and workup for possible syncope #Syncope, possible Patient presenting with fall, which was unwitnessed On examination patient does have a 5 out of 6 diastolic murmur on auscultation Plan: Orthostatic vitals now Physical therapy Echo ordered #Sacral segment fracture #T12 Vertebral body acute Compression Fractures Mechanical fall in elderly patient with advanced dementia. CT lumbar spine shows: Acute S5 fracture with angulation/offset; acute mild compression fracture of T12. CT pelvis shows: Acute fracture fifth sacral segment with angulation and mild offset No neurological deficits; non-operative per ortho. History of recurrent falls; underlying mobility limitations (walker/wheelchair use). Plan: Orhtopedic Dr Cuello was consulted, Recommendations appreiciated. Dr. Cuello recommends Uydutujr-[id number]-[id number] Orthosis?brace Pain management. Fall precautions. PT evaluation for mobility, transfer training, and safe ambulation strategies. #Advanced Dementia Progressive cognitive decline; requires full ADL assistance. High fall risk. Patient follows Dr. Malhotra outpatient and is on donepezil 20 mg p.o. at bedtime, memantine 5 mg p.o. twice daily, quetiapine and sertraline Plan: Continue home medications # Hx of Toney's eosophageaous Chronic medical condition Plan Continue protonix 40mg PO BID. #Hypertension History of HTN; currently normotensive on metoprolol. No acute hypertensive complications noted. Plan: Continue current antihypertensive regimen. Monitor BP during hospitalization; adjust therapy if clinically indicated. Hospital Management: Lines: PIV Bowel: Senna Diet: Cardiac with Ensure high-protein GI prophylaxis: On Protonix for Spicer's's DVT prophylaxis: Lovenox Dispo: Syncope workup, pain management for T12 compression fracture and sacral segment fracture Code: Full Patient seen and assessed with attending Dr. Whitlock and senior resident Dr. Juan Carlos Cox, PGY-1 Attending Provider Attestation/Addendum I attest that I was physically present for the evaluation, physical examination, lab and imaging review of the patient with the residents. I discussed the case with the residents and agree with the findings and plans of care as documented above. Patient is a 74 years old male with history of dementia, hyperlipidemia, Spicer's esophagus, bronchiectasis who presented to the ED with history of recurrent falls. He was found to have sacral segment fracture and T12 vertebral body acute compression fracture. Patient also has advanced dementia. Patient was admitted overnight for pain management, PT evaluation. At bedside, patient appears comfortable. As per patient's at bedside, patient is very forgetful and has hard time carrying out a conversation. But she states that he has not been complaining of too much pain. Orthopedics has been following, recommended TLSO brace and medical management. Patient evaluated by PT, recommended SNF placement. As per the , patient usually ask about help while going to the restroom as his blood pressure runs low. We will obtain echocardiography, orthostatic vitals for possible syncope. We will continue with physical therapy and discussed with case management regarding placement. Magdiel Whitlock MD
--- NOTE | 2024-07-30 15:03 | PC.SS ---
PASRR completed. Level 2. Closure is pending.
[2024-07-30] MEDS: SERTRALINE HCL 25 MG TABLET 50 MG PO (20:17)
[2024-07-30] MEDS: MONTELUKAST SODIUM 10 MG TABLET PO (20:17)
[2024-07-31] VITALS (7 sets, daily range): BP systolic 119–164; BP diastolic 67–96; PULSE 80–95; RESP 17–19; TEMP 36.1–36.8; O2SAT 90–95
[2024-07-31 05:36] LABS: Basophils # (Auto) 0.1 Thou/mm3 (0.0-0.2); Basophils % (Auto) 1 % (0-2.5); Eosinophils # (Auto) 0.2 Thou/mm3 (0.0-0.5); Eosinophils % (Auto) 2 % (0-10); Hematocrit 29.8 % (41.0-53.0); Immature Granulocytes % (Auto) 1 % (0-0); Immature Granulocytes Auto 0.05 Thou/mm3 (0.00-0.00); Lymphocytes # (Auto) 1.4 Thou/mm3 (1.0-4.8); Lymphocytes % (Auto) 14 % (10-50); Mean Corpuscular HGB Conc 33.6 g/dl (31.0-37.0); Mean Corpuscular Hemoglobin 27.6 pg (25.0-35.0); Mean Corpuscular Volume 82 fL (80-100); Monocytes # (Auto) 1.2 Thou/mm3 (0.0-0.8); Monocytes % (Auto) 12 % (0-12); Neutrophils # (Auto) 7.4 Thou/mm3 (1.8-7.7); Neutrophils % (Auto) 72 % (37-80); Nucleated Red Blood Cell % 0 /100 WBC (0); Platelet Count 508 Thou/mm3 (140-440); RDW Standard Deviation 46.7 fL (35.1-43.9); Red Blood Count 3.62 Miln/mm3 (4.50-5.90); White Blood Count 10.3 Thou/mm3 (3.8-10.6)
[2024-07-31 06:10] LABS: Anion Gap 10 (7-16); BUN/Creatinine Ratio 10 Ratio (12-20); Blood Urea Nitrogen 5 mg/dL (9-23); Calcium 8.3 mg/dL (8.3-10.6); Carbon Dioxide 25.3 mMol/L (20.0-31.0); Chloride 103 mMol/L (98-107); Creatinine (Component) 0.5 mg/dL (0.6-1.3); Estimated Creatinine Clearance 92.1 mL/min (>60); Glucose 80 mg/dL (74-106); Osmolality,Calculated 271 (275-295); Sodium 138 mMol/L (136-145); eGFR > 60 See Note
--- NOTE | 2024-07-31 08:36 | PC.SS ---
Addendum entered by QUINTIN Powell 07/31/24 14:37: Rounding note: pending echo. Possible d/c tomorrow to [facility]. Addendum entered by QUINTIN Powell 07/31/24 09:51: [facility] booked on [employer]. PASRR sent to [facility] via [employer]. Patient needs to meet the three midnights before d/c to SNF. Addendum entered by QUINTIN Powell 07/31/24 09:31: PASRRJeffery informs he will close PASRR level 2 as categorical. Addendum entered by QUINTIN Powell 07/31/24 09:30: SS follow up: , Callie , has selected [facility]. Miriam at [facility] is able to accept the patient. Original Note: SNF inquiry sent via [employer]. Pending responses.
[2024-07-31] MEDS: QUEtiapine FUMARATE 25 MG TABLET PO (09:07)
[2024-07-31] MEDS: PANTOPRAZOLE 40 MG TABLET PO ×2 (09:07→20:53)
[2024-07-31] MEDS: SENNA TABLET 1 TAB PO (09:07)
[2024-07-31] MEDS: DONEPEZIL HCL 5 MG TABLET 10 MG PO (09:07)
[2024-07-31] MEDS: METOPROLOL SUCCINATE XL 25 MG TABCR PO (09:07)
[2024-07-31] MEDS: ENOXAPARIN SOD INJ 40 MG/0.4 ML SYRINGE SC (09:08)
[2024-07-31] MEDS: MEMANTINE HCL 5 MG TABLET PO ×2 (09:08→20:53)
--- NOTE | 2024-07-31 09:18 | PC.CC ---
PT IS OPEN TO [facility]
[2024-07-31] MEDS: SODIUM CHLORIDE 0.9% 1000 ML 1,000 ML 75 ML IV (13:19)
--- NOTE | 2024-07-31 14:20 | ESPR_ITS ---
<Statement entered by Piper Rangel MD - 08/01/24 07:45> Patient was seen and examined by me personally. I have directly supervised and reviewed documentation by the team resident and agree with its findings with any exceptions or additional findings as below. Plan of care was discussed with the attending, Dr. Whitlock. Piper Rangel, PGY-2 Documentation for date of: 07/31/24 Subjective Subjective Interval history: 07/31/2024: No acute overnight events to report. Patient seen and examined in hospital bed remains at her current baseline; moreover, denies having any concerning symptoms such as chest pain, shortness of breath, palpitations or new headaches. Orthostatic vitals were positive and the patient's metoprolol succinate will be discontinued and recommendations for orthostatic hypotension precautions along with compression stockings were ordered. Patient continues to be on TLSO brace when pain is well-controlled; warm, will follow-up with Dr. Cuello outpatient. Patient's echocardiogram is pending and we will discharge within 24 hours once that is completed. Exam Vital Signs Temp Pulse Resp BP Pulse Ox O2 Del Method 97.1 F 85 18 125/75 93 L Room Air 07/31/24 12:00 07/31/24 12:00 07/31/24 12:00 07/31/24 12:00 07/31/24 12:00 07/31/24 12:00 Narrative Exam GEN: Awake, able to speak full sentences, temporal wasting. HEENT: NC/AC, oral mucosa moist, neck supple. CVS: RRR, Soft systolic murmur-S2 present, No JVD. RESP: CTAB. GI: Soft, non distended, non tender, NBS. MSK: able to move all 4 limbs, no lower extremity edema. SKIN: warm and dry. TECHNICAL PROJECT LEAD: AOx1, CN II-XII and Sensation grossly intact. Objective Labs 07/31/24 04:51 07/31/24 04:51 Labs: Laboratory Results - last 24 hr 07/31/24 04:51 WBC 10.3 RBC 3.62 L Hgb 10.0 L Hct 29.8 L MCV 82 MCH 27.6 MCHC 33.6 RDW Std Deviation 46.7 H Plt Count 508 H D Neut % (Auto) 72 Lymph % (Auto) 14 [place] % (Auto) 12 Eos % (Auto) 2 Baso % (Auto) 1 Neut # (Auto) 7.4 Lymph # (Auto) 1.4 [place] # (Auto) 1.2 H Eos # (Auto) 0.2 Baso # (Auto) 0.1 Immature Gran # (Auto) 0.05 H Absolute Nucleated RBC 0.00 Immature Gran % 1 H Nucleated RBC % 0 Sodium 138 Potassium 4.0 Chloride 103 Carbon Dioxide 25.3 Anion Gap 10 BUN 5 L Creatinine 0.5 L Estim Creat Clear Calc 92.1 eGFR > 60 BUN/Creatinine Ratio 10 L Glucose 80 Calculated Osmolality 271 L Calcium 8.3 Quality Measures Quality Measures none Advance care planning discussed with:: patient, spouse and child Assessment & Plan Assessment Current Active Medications: Generic Name Dose Route Start Last Admin Trade Name Freq PRN Reason Stop Dose Admin Acetaminophen 650 mg 07/29/24 20:00 Acetaminophen 325 Mg Tablet PO 08/28/24 19:59 Q6H PRN Fever >101.5 Hydrocodone Bitart/Acetaminophen 1 tab 07/29/24 20:00 Hydrocodone/Apap 5/325 Tablet PO 08/03/24 19:59 Q4HR PRN PAIN SCALE 4-6 (Moderate Cyproheptadine HCl 2 mg 07/29/24 21:00 07/30/24 20:30 Cyproheptadine Hcl 4 Mg Tablet PO 08/28/24 20:59 Not Given BID [facility] Protocol Donepezil HCl 10 mg 07/30/24 09:00 07/31/24 09:07 Donepezil Hcl 5 Mg Tablet PO 08/29/24 08:59 10 mg DAILY HOMAR Administration Enoxaparin Sodium 40 mg 07/30/24 09:00 07/31/24 09:08 Enoxaparin Sod Inj 40 Mg/0.4 Ml Syringe SC 08/13/24 08:59 40 mg QDAY HOMAR Administration Sodium Chloride 1,000 mls @ 75 mls/hr 07/29/24 20:00 07/31/24 13:19 Ns IV 08/28/24 19:59 75 mls/hr .[id number] HOMAR Administration Memantine 5 mg 07/29/24 21:00 07/31/24 09:08 Memantine Hcl 5 Mg Tablet PO 08/28/24 20:59 5 mg BID HOMAR Administration Metoprolol Succinate 25 mg 07/30/24 09:00 07/31/24 09:07 Metoprolol Succinate Xl 25 Mg Tabcr PO 08/29/24 08:59 25 mg QDAY HOMAR Administration Montelukast Sodium 10 mg 07/29/24 21:00 07/30/24 20:17 Montelukast Sodium 10 Mg Tablet PO 08/28/24 20:59 10 mg HS HOMAR Administration Pantoprazole Sodium 40 mg 07/29/24 21:00 07/31/24 09:07 Pantoprazole 40 Mg Tablet PO 08/28/24 20:59 40 mg BID HOMAR Administration Quetiapine Fumarate 25 mg 07/30/24 09:00 07/31/24 09:07 Quetiapine Fumarate 25 Mg Tablet PO 08/29/24 08:59 25 mg QDAY HOMAR Administration Sennosides 1 tab 07/31/24 09:00 07/31/24 09:07 Senna Tablet PO 08/30/24 08:59 1 tab QDAY HOMAR Administration Protocol Sertraline HCl 50 mg 07/29/24 21:00 07/30/24 20:17 Sertraline Hcl 25 Mg Tablet PO 08/28/24 20:59 50 mg HS HOMAR Administration Plan 74-year-old male patient with past medical history of dementia, hyperlipidemia, Spicer's esophagus, bronchiectasis, presented to the ED due to recent history of fall down. Patient at baseline is confused and oriented only to self patient was not aware of his presentation and why he is in the hospital. Patient was admitted for management of T12 and sacral fractures and workup for possible syncope #Orthostatic hypotension Patient presenting with fall, which was unwitnessed On examination patient does have a 5 out of 6 diastolic murmur on auscultation Orthostatic vitals are positive, systolic blood pressure dropped greater than 20 but heart rate was stable Patient is on metoprolol succinate 25 mg p.o. daily for presumably hypertension? Physical therapy was able to work with the patient and recommendation is discharge to rehabilitation center Plan: Discontinued patient's metoprolol succinate Orthostatic hypotension precautions Compression stockings Echocardiogram pending #Sacral segment fracture #T12 Vertebral body acute Compression Fractures Mechanical fall in elderly patient with advanced dementia. CT lumbar spine shows: Acute S5 fracture with angulation/offset; acute mild compression fracture of T12. CT pelvis shows: Acute fracture fifth sacral segment with angulation and mild offset No neurological deficits; non-operative per ortho. History of recurrent falls; underlying mobility limitations (walker/wheelchair use). Plan: Orhtopedic Dr Cuello was consulted, Recommendations appreiciated. Dr. Cuello recommends Nheppmxh-Ugghds-Vekfbd Orthosis?brace Pain management. Fall precautions. PT evaluation for mobility, transfer training, and safe ambulation strategies. #Normocytic anemia Patient presenting with hemoglobin of 10.0 Per chart review, patient's been having anemia chronically Differentials include: AOCD, iron deficiency anemia, vitamin deficiency, less likely to be hemolytic anemia or hematologic malignancy Plan: Follow-up with morning iron panel, ferritin, reticulocyte count Outpatient follow-up PCP for peripheral smear #Advanced Dementia Progressive cognitive decline; requires full ADL assistance. High fall risk. Patient follows Dr. Malhotra outpatient and is on donepezil 20 mg p.o. at bedtime, memantine 5 mg p.o. twice daily, quetiapine and sertraline Plan: Continue home medications #Toney's esophagus Chronic medical condition Plan Continue protonix 40mg PO BID. #Hypertension History of HTN; currently normotensive on metoprolol as above No acute hypertensive complications noted. Plan: Monitor BP during hospitalization; adjust therapy if clinically indicated. Hospital Management: Lines: PIV Bowel: Senna Diet: Cardiac with Ensure high-protein GI prophylaxis: On Protonix for Spicer's's DVT prophylaxis: Lovenox Dispo: Echo pending, pain management for T12 compression fracture and sacral segment fracture Code: Full Patient seen and assessed with attending Dr. Whitlock and senior resident Dr. Juan Carlos Cox, PGY-1 Attending Provider Attestation/Addendum I attest that I was physically present for the evaluation, physical examination, lab and imaging review of the patient with the residents. I discussed the case with the residents and agree with the findings and plans of care as documented above. At bedside today, patient appears comfortable. States that he is feeling well and does not have any new complaints. Orthostatic vitals came back positive with drop in systolic blood pressure more than 20. We will hold off patient's metoprolol succinate. Patient continues to be on TLSO brace as recommended by orthopedics, appreciate recommendations. Underwent physical therapy, recommended SNF placement for continuation of PT. Pending echocardiography. Plan to discharge tomorrow once echocardiography is done. Magdiel Whitlock MD
[2024-07-31] MEDS: MONTELUKAST SODIUM 10 MG TABLET PO (20:53)
[2024-07-31] MEDS: SERTRALINE HCL 25 MG TABLET 50 MG PO (20:53)
[2024-08-01] VITALS (8 sets, daily range): BP systolic 110–164; BP diastolic 65–96; PULSE 68–102; RESP 17–18; TEMP 36.3–36.9; O2SAT 92–96
[2024-08-01 06:43] LABS: Basophils # (Auto) 0.1 Thou/mm3 (0.0-0.2); Basophils % (Auto) 1 % (0-2.5); Eosinophils # (Auto) 0.2 Thou/mm3 (0.0-0.5); Eosinophils % (Auto) 1 % (0-10); Immature Granulocytes % (Auto) 0 % (0-0); Immature Granulocytes Auto 0.04 Thou/mm3 (0.00-0.00); Immature Reticulocyte Fraction 14.6 % (2.3-13.4); Lymphocytes # (Auto) 1.4 Thou/mm3 (1.0-4.8); Lymphocytes % (Auto) 10 % (10-50); Mean Corpuscular HGB Conc 34.4 g/dl (31.0-37.0); Mean Corpuscular Hemoglobin 28.2 pg (25.0-35.0); Mean Corpuscular Volume 82 fL (80-100); Monocytes # (Auto) 1.4 Thou/mm3 (0.0-0.8); Monocytes % (Auto) 11 % (0-12); Neutrophils # (Auto) 10.3 Thou/mm3 (1.8-7.7); Neutrophils % (Auto) 77 % (37-80); Nucleated Red Blood Cell % 0 /100 WBC (0); Platelet Count 526 Thou/mm3 (140-440); RDW Standard Deviation 47.2 fL (35.1-43.9); Reticulocyte % (Auto) 1.7 % (0.5-1.5); Reticulocyte Absolute Auto 65.9 Biln/L (25.0-75.0); Reticulocyte Hgb Content 30.8 pg (28.0-35.0); White Blood Count 13.4 Thou/mm3 (3.8-10.6)
[2024-08-01 07:05] LABS: Anion Gap 10 (7-16); BUN/Creatinine Ratio 10 Ratio (12-20); Blood Urea Nitrogen < 5 mg/dL (9-23); Calcium 8.3 mg/dL (8.3-10.6); Carbon Dioxide 23.9 mMol/L (20.0-31.0); Chloride 102 mMol/L (98-107); Creatinine (Component) 0.5 mg/dL (0.6-1.3); Estimated Creatinine Clearance 92.1 mL/min (>60); Glucose 87 mg/dL (74-106); Osmolality,Calculated 268 (275-295); Potassium 3.7 mMol/L (3.4-5.1); Sodium 136 mMol/L (136-145); eGFR > 60 See Note
[2024-08-01 07:11] LABS: Ferritin 313 ng/mL (10.5-307.3); Iron 27 mcg/dL (65-175); Percent Iron Saturation 13 % (20-55); Total Iron Binding Capacity 201 mcg/dL (250-425); Unsaturated Iron Binding 174 (225-295)
[2024-08-01] MEDS: METOPROLOL SUCCINATE XL 25 MG TABCR PO (09:56)
[2024-08-01] MEDS: ENOXAPARIN SOD INJ 40 MG/0.4 ML SYRINGE SC (09:56)
[2024-08-01] MEDS: SENNA TABLET 1 TAB PO (09:56)
[2024-08-01] MEDS: QUEtiapine FUMARATE 25 MG TABLET PO (09:57)
[2024-08-01] MEDS: PANTOPRAZOLE 40 MG TABLET PO ×2 (09:57→20:07)
[2024-08-01] MEDS: DONEPEZIL HCL 5 MG TABLET 10 MG PO (09:57)
[2024-08-01] MEDS: MEMANTINE HCL 5 MG TABLET PO ×2 (10:01→20:07)
--- NOTE | 2024-08-01 10:33 | ECHO_ITS ---
Transthoracic Echo Report Ht (in): 64 Wt (lb): 112 Exam Location: Echo Lab Status: Inpatient Pbx Operator: MONSTER Tiwari^^^^ Indications: Procedure Performed: BP: 128 / 78 HR: 72 Technical Quality: Fair MEASUREMENTS (Male / Female) Normal Values 2D ECHO LV Diastolic Diameter PLAX 4.1 cm 4.2 - 5.9 / 3.9 - 5.3 cm LV Systolic Diameter PLAX 2.9 cm IVS Diastolic Thickness 0.8 cm 0.6 - 1.0 / 0.6 - 0.9 cm LVPW Diastolic Thickness 0.8 cm 0.6 - 1.0 / 0.6 - 0.9 cm LV Relative Wall Thickness 0.4 LVOT Diameter 1.7 cm Aortic Root Diameter 3.8 cm LA Systolic Diameter LX 2.5 cm 3.0 - 4.0 / 2.7 - 3.8 cm LV Ejection Fraction MOD BP 56.1 % >= 55 % LV Cardiac Index MOD BP 2237.0 cm?/min?m? LV Ejection Fraction MOD 4C 57.2 % LV Cardiac Index MOD 4C 3219.5 cm?/min?m? LV Ejection Fraction 4C AL 59.2 % LV Cardiac Index 4C AL 3439.4 cm?/min?m? LV Ejection Fraction MOD 2C 57.3 % LV Cardiac Index MOD 2C 1616.9 cm?/min?m? LV Ejection Fraction 2C AL 59.3 % LV Cardiac Index 2C AL 1688.8 cm?/min?m? LA Volume Index 42.2 cm?/m? 16 - 28 cm?/m? Ascending Aorta Diameter 3.0 cm DOPPLER AV Peak Velocity 319.7 cm/s AV Peak Gradient 40.9 mmHg AV Mean Gradient 25.0 mmHg AV Velocity Time Integral 70.8 cm AI Peak Velocity 407.0 cm/s AI Peak Gradient 66.3 mmHg AI Pressure Half Time 474.0 ms LVOT Peak Velocity 117.0 cm/s LVOT Peak Gradient 5.5 mmHg LVOT Velocity Time Integral 32.4 cm LVOT Cardiac Index 3507.7 cm?/min?m? AV Area Cont Eq vti 1.0 cm? AV Area Cont Eq pk 0.8 cm? MV Area PHT 3.2 cm? Mitral E Point Velocity 73.2 cm/s Mitral A Point Velocity 119.0 cm/s Mitral E to A Ratio 0.6 LV E' Lateral Velocity 10.7 cm/s Mitral E to LV E' Lateral Ratio 6.8 LV E' Septal Velocity 7.9 cm/s Mitral E to LV E' Septal Ratio 9.3 TR Peak Velocity 292.7 cm/s TR Peak Gradient 34.3 mmHg PV Peak Velocity 133.0 cm/s PV Peak Gradient 7.1 mmHg RVOT Peak Velocity 48.8 cm/s FINDINGS Left Ventricle Normal left ventricular size, wall thickness, systolic function with no obvious regional wall motion abnormalities. There is grade I diastolic dysfunction of the left ventricle (impaired relaxation pattern). The left ventricular ejection fraction is normal, estimated at 55-60%. Right Ventricle The right ventricle is normal in size and systolic function. The estimated right ventricular systolic pressure, 40 mmHg. Left Atrium Mildly increased left atrial volume 42.2 mL/m?. Right Atrium The right atrium is normal by two-dimensional imaging, color flow and Doppler imaging with no structural abnormalities, no thrombus formation present. Atrial Septum The interatrial septum appears normal with no evidence of a shunt. Aorta The aorta is normal by two-dimensional, color flow and Doppler interrogation. Mitral Valve Wvxj-sj-ptyhpzol mitral regurgitation. Moderate mitral annular calcification. Aortic Valve Moderate aortic valve stenosis, mean gradient 25 mmHg, ANNA 1 cm?. Mild aortic valve regurgitation. Tricuspid Valve There is moderate to severe tricuspid valve regurgitation. Pulmonic Valve Mild pulmonic valve regurgitation. Vessels The pulmonary artery appears normal. The inferior vena cava pulmonary and hepatic veins appear normal. Pericardium The pericardium is normal by two-dimensional imaging. There is no significant pericardial effusion. CONCLUSIONS indication: murmur LV appears normal with EF 55-60%. Diastolic Dysfunction I. RV appears normal with elevated RVSP 45 mmHg. LA is mildly dilated. Mild-Mod MR & MAC Moderate & mild AI Mod-Severe TR Lisa Abebe (Electronically Signed) Final Date: 02 August 2024 11:56
[2024-08-01] MEDS: Lisinopril 2.5 MG TABLET 5 MG PO (11:05)
[2024-08-01] MEDS: FERROUS SULF 325 MG TABLET PO (11:06)
--- NOTE | 2024-08-01 12:30 | CHAP ---
[employer] Volunteer prayed silently for them. (Volunteer was in the hospital from 09:15-12:30).
[2024-08-01] MEDS: droNABinol 2.5 MG CAPSULE PO ×2 (14:15→20:08)
--- NOTE | 2024-08-01 14:22 | ESPR_ITS ---
<Statement entered by Piper Rangel MD - 08/02/24 12:26> Patient was seen and examined by me personally. I have directly supervised and reviewed documentation by the team resident and agree with its findings with any exceptions or additional findings as below. Plan of care was discussed with the attending, Dr. Whitlock. Patient is post 3 midnight stay, now eligible for discharge to SNF. However, there is concern regarding patient's appetite, therefore dronabinol 2.5 mg BID was initiated. Also awaiting echo results given systolic heart murmur on exam. Patient was also started on low dose lisinopril for BP control. Piper Rangel, PGY-2 Documentation for date of: 08/01/24 Subjective Subjective Interval history: 08/01/2024: No acute overnight events to report. Patient seen and examined in hospital bed denies having any concerning symptoms such as chest pain, shortness of breath, abdominal pain, dizziness or headaches. Patient making nonsensical comments but this is likely secondary to his dementia. When the patient was redirected and asked direct questions he answers appropriately. Patient started on lisinopril 5 mg p.o. daily as his blood pressures have been slightly elevated even with metoprolol succinate home dose. Patient also started on iron supplementation as iron levels were low. Patient's white count did uptrend but the patient denies having any concerning symptoms as stated above even with a history of bilateral parenchymal lung disease noted. Patient has not been eating well as such dronabinol 2.5 mg p.o. twice daily has been started. Will continue to monitor the patient's p.o. intake expect discharge within the next 24 hours. Exam Vital Signs Temp Pulse Resp BP Pulse Ox O2 Del Method 97.8 F 95 17 132/76 H 96 Room Air 08/01/24 12:00 08/01/24 12:00 08/01/24 12:00 08/01/24 12:08/01/24 12:08/01/24 12:00 Narrative Exam GEN: Awake, able to speak full sentences, temporal wasting. HEENT: NC/AC, oral mucosa moist, neck supple. CVS: RRR, Soft systolic murmur-S2 present, No JVD. RESP: CTAB. GI: Soft, non distended, non tender, NBS. MSK: able to move all 4 limbs, no lower extremity edema. SKIN: warm and dry. SUPERVISOR INCISING: AOx1, CN II-XII and Sensation grossly intact. Objective Labs 08/01/24 06:18 08/01/24 06:18 Labs: Laboratory Results - last 24 hr 08/01/24 06:18 WBC 13.4 H RBC 3.90 L Hgb 11.0 L Hct 32.0 L MCV 82 MCH 28.2 MCHC 34.4 RDW Std Deviation 47.2 H Plt Count 526 H Neut % (Auto) 77 Lymph % (Auto) 10 [place] % (Auto) 11 Eos % (Auto) 1 Baso % (Auto) 1 Neut # (Auto) 10.3 H Lymph # (Auto) 1.4 [place] # (Auto) 1.4 H Eos # (Auto) 0.2 Baso # (Auto) 0.1 Immature Gran # (Auto) 0.04 H Absolute Nucleated RBC 0.00 Immature Gran % 0 Nucleated RBC % 0 Retic Count (auto) 1.7 H Absolute Retic 65.9 Immature Retic Fraction 14.6 H Retic Hgb Content CHr 30.8 Sodium 136 Potassium 3.7 Chloride 102 Carbon Dioxide 23.9 Anion Gap 10 BUN < 5 L Creatinine 0.5 L Estim Creat Clear Calc 92.1 eGFR > 60 BUN/Creatinine Ratio 10 L Glucose 87 Calculated Osmolality 268 L Calcium 8.3 Iron 27 L TIBC 201 L Iron Saturation 13 L Unsat Iron Binding 174 L Ferritin 313 H Quality Measures Quality Measures none Advance care planning discussed with:: patient and spouse Assessment & Plan Assessment Current Active Medications: Generic Name Dose Route Start Last Admin Trade Name Freq PRN Reason Stop Dose Admin Acetaminophen 650 mg 07/29/24 20:00 Acetaminophen 325 Mg Tablet PO 08/28/24 19:59 Q6H PRN Fever >101.5 Hydrocodone Bitart/Acetaminophen 1 tab 07/29/24 20:00 Hydrocodone/Apap 5/325 Tablet PO 08/03/24 19:59 Q4HR PRN PAIN SCALE 4-6 (Moderate Donepezil HCl 10 mg 07/30/24 09:00 08/01/24 09:57 Donepezil Hcl 5 Mg Tablet PO 08/29/24 08:59 10 mg DAILY HOMAR Administration Dronabinol 2.5 mg 08/01/24 14:00 08/01/24 14:15 Dronabinol 2.5 Mg Capsule PO 08/31/24 13:59 2.5 mg BID HOMAR Administration Enoxaparin Sodium 40 mg 07/30/24 09:00 08/01/24 09:56 Enoxaparin Sod Inj 40 Mg/0.4 Ml Syringe SC 08/13/24 08:59 40 mg QDAY HOMAR Administration Ferrous Sulfate 325 mg 08/01/24 11:00 08/01/24 11:06 Ferrous Sulf 325 Mg Tablet PO 08/31/24 10:59 325 mg QOD HOMAR Administration Sodium Chloride 1,000 mls @ 75 mls/hr 07/29/24 20:00 07/31/24 18:09 Ns IV 08/28/24 19:59 75 mls/hr .[id number] HOMAR Infusion Lisinopril 5 mg 08/01/24 10:45 08/01/24 11:05 Lisinopril 2.5 Mg Tablet PO 08/31/24 10:44 5 mg QDAY HOMAR Administration Memantine 5 mg 07/29/24 21:00 08/01/24 10:01 Memantine Hcl 5 Mg Tablet PO 08/28/24 20:59 5 mg BID HOMAR Administration Metoprolol Succinate 25 mg 07/30/24 09:00 08/01/24 09:56 Metoprolol Succinate Xl 25 Mg Tabcr PO 08/29/24 08:59 25 mg QDAY HOMAR Administration Montelukast Sodium 10 mg 07/29/24 21:00 07/31/24 20:53 Montelukast Sodium 10 Mg Tablet PO 08/28/24 20:59 10 mg HS HOMAR Administration Pantoprazole Sodium 40 mg 07/29/24 21:00 08/01/24 09:57 Pantoprazole 40 Mg Tablet PO 08/28/24 20:59 40 mg BID HOMAR Administration Quetiapine Fumarate 25 mg 07/30/24 09:00 08/01/24 09:57 Quetiapine Fumarate 25 Mg Tablet PO 08/29/24 08:59 25 mg QDAY HOMAR Administration Sennosides 1 tab 07/31/24 09:00 08/01/24 09:56 Senna Tablet PO 08/30/24 08:59 1 tab QDAY HOMAR Administration Protocol Sertraline HCl 50 mg 07/29/24 21:00 07/31/24 20:53 Sertraline Hcl 25 Mg Tablet PO 08/28/24 20:59 50 mg HS HOMAR Administration Plan 74-year-old male patient with past medical history of dementia, hyperlipidemia, Spicer's esophagus, bronchiectasis, presented to the ED due to recent history of fall down. Patient at baseline is confused and oriented only to self patient was not aware of his presentation and why he is in the hospital. Patient was admitted for management of T12 and sacral fractures and workup for possible syncope #Orthostatic hypotension Patient presenting with fall, which was unwitnessed On examination patient does have a 5 out of 6 diastolic murmur on auscultation Orthostatic vitals are positive, systolic blood pressure dropped greater than 20 but heart rate was stable Patient is on metoprolol succinate 25 mg p.o. daily for presumably hypertension? Physical therapy was able to work with the patient and recommendation is discharge to rehabilitation center Plan: Will discontinue patient's metoprolol succinate on discharge Orthostatic hypotension precautions Compression stockings Echocardiogram ordered #Sacral segment fracture #T12 Vertebral body acute Compression Fractures Mechanical fall in elderly patient with advanced dementia. CT lumbar spine shows: Acute S5 fracture with angulation/offset; acute mild compression fracture of T12. CT pelvis shows: Acute fracture fifth sacral segment with angulation and mild offset No neurological deficits; non-operative per ortho. History of recurrent falls; underlying mobility limitations (walker/wheelchair use). Patient has slight uptake in WBC from 10.3-13.4 likely reactive secondary to the fracture but cannot rule out below parenchymal lung disease and mention about possible pneumonia? Plan: Orhtopedic Dr Cuello was consulted, Recommendations appreiciated. Dr. Cuello recommends Hguxqdxm-Uxyvhe-Uvkvsv Orthosis?brace Pain management. Fall precautions. PT evaluation for mobility, transfer training, and safe ambulation strategies. #Hypertension #Likely valvular heart disease History of HTN; currently hypertensive on metoprolol as above On examination, patient has systolic mumur noted on auscultation No echo on file Plan: Echo ordered as above Patient is on metoprolol succinate (home medication), will continue but considering discontinuing secondary to likely aortic stenosis as stated above Added lisinopril 5 mg p.o. daily as the patient has some degree of valvular heart disease, will increase as tolerated Monitor BP during hospitalization; adjust therapy if clinically indicated. #Parenchymal lung disease Per CT scan from 2023, patient has Extensive bilateral parenchymal disease again noted, particularly cavitary. Bronchiectasis in the left lower lobe and right middle lobe Chest x-ray during admission showed worsening extensive bilateral parenchymal disease Radiology believes differentials include pneumonia with superimposed extensive bilateral chronic parenchymal disease Patient is on room air and denies having any shortness of breath but leukocytosis is noted as stated above Plan: Will monitor WBC and symptoms for dyspnea Patient can benefit from outpatient pulmonology referral for the parenchymal lung disease #Normocytic anemia Patient presenting with hemoglobin of 10.0 Per chart review, patient's been having anemia chronically Differentials include: AOCD, iron deficiency anemia, vitamin deficiency, less likely to be hemolytic anemia or hematologic malignancy Iron panel shows: Iron 27, TIBC 201, Iron sat 13% and Ferritin 313; reticulocyte count expectedly elevated Plan: Started iron supplementation Outpatient follow-up PCP for peripheral smear #Advanced Dementia Progressive cognitive decline; requires full ADL assistance. High fall risk. Patient follows Dr. Malhotra outpatient and is on donepezil 20 mg p.o. at bedtime, memantine 5 mg p.o. twice daily, quetiapine and sertraline Plan: Continue home medications #Toney's esophagus Chronic medical condition Plan Continue protonix 40mg PO BID. Hospital Management: Lines: PIV Bowel: Senna Diet: Cardiac with Ensure high-protein GI prophylaxis: On Protonix for Spicer's's DVT prophylaxis: Lovenox Dispo: Echo pending, pain management for T12 compression fracture and sacral segment fracture Code: Full Patient seen and assessed with attending Dr. Whitlock and senior resident Dr. Juan Carlos Cox, PGY-1 Attending Provider Attestation/Addendum I attest that I was physically present for the evaluation, physical examination, lab and imaging review of the patient with the residents. I discussed the case with the residents and agree with the findings and plans of care as documented above. At bedside today, patient is states she is feeling well. Denies any back pain. Continues to be alert and awake at bedside, able to answer questions and follow commands but appears confused. Patient has not been able to complete his meals, when asked, states that he does not feel hungry. Started on dronabinol. Also noted to have his blood pressure going up slowly, we will start him on low-dose DIEGO inhibitor's. Physical therapy following, recommended SNF placement for further physical therapy sessions on discharge. Pending echocardiography. We will monitor his oral intake with dronabinol, if patient able to tolerate his diet well, we will plan for discharge tomorrow. Magdiel Whitlock MD
[2024-08-01] MEDS: SODIUM CHLORIDE 0.9% 1000 ML 1,000 ML 75 ML IV (16:39)
[2024-08-01] MEDS: MONTELUKAST SODIUM 10 MG TABLET PO (20:07)
[2024-08-01] MEDS: SERTRALINE HCL 25 MG TABLET 50 MG PO (20:08)
[2024-08-02] VITALS (7 sets, daily range): BP systolic 109–146; BP diastolic 66–85; PULSE 79–101; RESP 16–18; TEMP 36.3–37.1; O2SAT 92–96
[2024-08-02] MEDS: SODIUM CHLORIDE 0.9% 1000 ML 1,000 ML 75 ML IV ×2 (05:25→18:06)
[2024-08-02 06:34] LABS: Alanine Aminotransferase 19 U/L (10-49); Albumin, Serum 3.2 gm/dL (3.4-4.8); Albumin/Globulin Ratio 0.9 (1.2-2.2); Alkaline Phosphatase 134 U/L (46-116); Anion Gap 8 (7-16); Aspartate Amino Transferase 47 U/L (0-34); BUN/Creatinine Ratio 10 Ratio (12-20); Bilirubin,Total 0.6 mg/dL (0.3-1.2); Blood Urea Nitrogen < 5 mg/dL (9-23); Calcium 8.5 mg/dL (8.3-10.6); Calcium (Corrected) 9.1 mg/dL (8.5-10.1); Carbon Dioxide 24.4 mMol/L (20.0-31.0); Chloride 106 mMol/L (98-107); Creatinine (Component) 0.5 mg/dL (0.6-1.3); Estimated Creatinine Clearance 92.1 mL/min (>60); Globulin 3.4 gm/dL (2.3-3.5); Glucose 91 mg/dL (74-106); Osmolality,Calculated 272 (275-295); Potassium 3.3 mMol/L (3.4-5.1); Sodium 138 mMol/L (136-145); Total Protein 6.6 gm/dL (5.7-8.2); eGFR > 60 See Note
[2024-08-02 08:17] LABS: Basophils # (Auto) 0.1 Thou/mm3 (0.0-0.2); Basophils % (Auto) 1 % (0-2.5); Eosinophils # (Auto) 0.2 Thou/mm3 (0.0-0.5); Eosinophils % (Auto) 2 % (0-10); Hematocrit 32.1 % (41.0-53.0); Hemoglobin 10.9 g/dL (13.5-16.0); Immature Granulocytes % (Auto) 0 % (0-0); Immature Granulocytes Auto 0.05 Thou/mm3 (0.00-0.00); Lymphocytes # (Auto) 1.9 Thou/mm3 (1.0-4.8); Lymphocytes % (Auto) 16 % (10-50); Mean Corpuscular Hemoglobin 27.5 pg (25.0-35.0); Mean Corpuscular Volume 81 fL (80-100); Monocytes # (Auto) 1.4 Thou/mm3 (0.0-0.8); Monocytes % (Auto) 12 % (0-12); Neutrophils % (Auto) 69 % (37-80); Nucleated Red Blood Cell % 0 /100 WBC (0); Platelet Count 605 Thou/mm3 (140-440); RDW Standard Deviation 46.5 fL (35.1-43.9); Red Blood Count 3.97 Miln/mm3 (4.50-5.90); White Blood Count 11.6 Thou/mm3 (3.8-10.6)
[2024-08-02] MEDS: droNABinol 2.5 MG CAPSULE PO ×2 (08:47→20:09)
[2024-08-02] MEDS: ENOXAPARIN SOD INJ 40 MG/0.4 ML SYRINGE SC (08:47)
[2024-08-02] MEDS: QUEtiapine FUMARATE 25 MG TABLET PO (09:03)
[2024-08-02] MEDS: SENNA TABLET 1 TAB PO (09:03)
[2024-08-02] MEDS: MEMANTINE HCL 5 MG TABLET PO ×2 (09:03→20:09)
[2024-08-02] MEDS: Lisinopril 2.5 MG TABLET 5 MG PO (09:03)
[2024-08-02] MEDS: PANTOPRAZOLE 40 MG TABLET PO ×2 (09:03→20:09)
[2024-08-02] MEDS: DONEPEZIL HCL 5 MG TABLET 10 MG PO (09:03)
--- NOTE | 2024-08-02 09:32 | PC.SS ---
PUNCHBOARD STUFFER got an update on pt's d/c plan pt is pending back pain management, 'enrike will follow up with PUNCHBOARD STUFFER if pt get's d/c today, PUNCHBOARD STUFFER updated [place] from [facility].
--- NOTE | 2024-08-02 13:49 | ESPR_ITS ---
Documentation for date of: 08/02/24 Subjective Subjective Interval history: Patient is seen and examined in [facility] today. There were no major overnight events and patient had no complaints this morning. Patient is severely demented and rambles on occasionally but is able to answer simple questions. When prompted to eat patient states that he does not find the urge to eat. Spoke to surrogate decision maker patient's , Callie, and discussed possible PEG tube insertion. Patient 's agrees that patient likely will need Exam Vital Signs Temp Pulse Resp BP Pulse Ox O2 Del Method 97.6 F 90 17 109/68 96 Room Air 08/02/24 12:00 08/02/24 12:00 08/02/24 12:00 08/02/24 12:00 08/02/24 12:08/02/24 12:00 Narrative Exam Constitutional: Cachectic male that is lethargic but arousable CVS: RRR, S1 and S2 present, no murmurs, rubs or gallops . RESP: CTAB, no SOB, no rales, rhonchi or wheezing. No respiratory Distress GI: Normal BS, Nontender/Nondistended. MSK: Full range of motion, No trauma or deformities or masses. Skin: Warm to touch, Dry. No rashes or lesions. 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 Sensation grossly intact. Psych: (AAO) x 1. Able to follow commands and responds appropriately to simple questions Objective Labs 08/02/24 05:30 08/02/24 05:30 Labs: Laboratory Results - last 24 hr 08/02/24 05:30 WBC 11.6 H RBC 3.97 L Hgb 10.9 L Hct 32.1 L MCV 81 MCH 27.5 MCHC 34.0 RDW Std Deviation 46.5 H Plt Count 605 H D Neut % (Auto) 69 Lymph % (Auto) 16 [place] % (Auto) 12 Eos % (Auto) 2 Baso % (Auto) 1 Neut # (Auto) 8.0 H Lymph # (Auto) 1.9 [place] # (Auto) 1.4 H Eos # (Auto) 0.2 Baso # (Auto) 0.1 Immature Gran # (Auto) 0.05 H Absolute Nucleated RBC 0.00 Immature Gran % 0 Nucleated RBC % 0 Sodium 138 Potassium 3.3 L Chloride 106 Carbon Dioxide 24.4 Anion Gap 8 BUN < 5 L Creatinine 0.5 L Estim Creat Clear Calc 92.1 eGFR > 60 BUN/Creatinine Ratio 10 L Glucose 91 Calculated Osmolality 272 L Calcium 8.5 Corrected Calcium 9.1 Total Bilirubin 0.6 AST 47 H ALT 19 Alkaline Phosphatase 134 H Total Protein 6.6 Albumin 3.2 L Globulin 3.4 Albumin/Globulin Ratio 0.9 L Quality Measures Quality Measures none Advance care planning discussed with:: spouse Assessment & Plan Assessment Current Active Medications: Generic Name Dose Route Start Last Admin Trade Name Freq PRN Reason Stop Dose Admin Acetaminophen 650 mg 07/29/24 20:00 Acetaminophen 325 Mg Tablet PO 08/28/24 19:59 Q6H PRN Fever >101.5 Hydrocodone Bitart/Acetaminophen 1 tab 07/29/24 20:00 Hydrocodone/Apap 5/325 Tablet PO 08/03/24 19:59 Q4HR PRN PAIN SCALE 4-6 (Moderate Donepezil HCl 10 mg 07/30/24 09:00 08/02/24 09:03 Donepezil Hcl 5 Mg Tablet PO 08/29/24 08:59 10 mg DAILY HOMAR Administration Dronabinol 2.5 mg 08/01/24 14:00 08/02/24 08:47 Dronabinol 2.5 Mg Capsule PO 08/31/24 13:59 2.5 mg BID HOMAR Administration Enoxaparin Sodium 40 mg 07/30/24 09:00 08/02/24 08:47 Enoxaparin Sod Inj 40 Mg/0.4 Ml Syringe SC 08/13/24 08:59 40 mg QDAY HOMAR Administration Ferrous Sulfate 325 mg 08/01/24 11:00 08/01/24 11:06 Ferrous Sulf 325 Mg Tablet PO 08/31/24 10:59 325 mg QOD HOMAR Administration Sodium Chloride 1,000 mls @ 75 mls/hr 07/29/24 20:00 08/02/24 05:25 Ns IV 08/28/24 19:59 75 mls/hr .[id number] HOMAR Administration Lisinopril 5 mg 08/01/24 10:45 08/02/24 09:03 Lisinopril 2.5 Mg Tablet PO 08/31/24 10:44 5 mg QDAY HOMAR Administration Memantine 5 mg 07/29/24 21:00 08/02/24 09:03 Memantine Hcl 5 Mg Tablet PO 08/28/24 20:59 5 mg BID HOMAR Administration Montelukast Sodium 10 mg 07/29/24 21:00 08/01/24 20:07 Montelukast Sodium 10 Mg Tablet PO 08/28/24 20:59 10 mg HS HOMAR Administration Pantoprazole Sodium 40 mg 07/29/24 21:00 08/02/24 09:03 Pantoprazole 40 Mg Tablet PO 08/28/24 20:59 40 mg BID HOMAR Administration Quetiapine Fumarate 25 mg 07/30/24 09:00 08/02/24 09:03 Quetiapine Fumarate 25 Mg Tablet PO 08/29/24 08:59 25 mg QDAY HOMAR Administration Sennosides 1 tab 07/31/24 09:00 08/02/24 09:03 Senna Tablet PO 08/30/24 08:59 1 tab QDAY HOMAR Administration Protocol Sertraline HCl 50 mg 07/29/24 21:00 08/01/24 20:08 Sertraline Hcl 25 Mg Tablet PO 08/28/24 20:59 50 mg HS HOMAR Administration Plan 74-year-old male patient with past medical history of dementia, hyperlipidemia, Spicer's esophagus, bronchiectasis, presented to the ED due to recent history of fall down. Patient at baseline is confused and oriented only to self patient was not aware of his presentation and why he is in the hospital. Patient was admitted for management of T12 and sacral fractures and workup for possible syncope #Failure to thrive #Toney's esophagus Patient's Esophagus is a chronic condition however patient has not been eating adequately during his stay. When speaking to family they said the patient does not eat unless constantly prompted There is a concern for patient not meeting his calorie intake which could lead to further complications during his stay. Plan Continue protonix 40mg PO BID. GI consultation order for evaluation for possible PEG tube insertion #Orthostatic hypotension Patient presenting with fall, which was unwitnessed On examination patient does have a 5 out of 6 diastolic murmur on auscultation Orthostatic vitals are positive, systolic blood pressure dropped greater than 20 but heart rate was stable Patient is on metoprolol succinate 25 mg p.o. daily for presumably hypertension? Physical therapy was able to work with the patient and recommendation is discharge to rehabilitation center Plan: Will discontinue patient's metoprolol succinate on discharge Orthostatic hypotension precautions Compression stockings Echocardiogram ordered #Sacral segment fracture #T12 Vertebral body acute Compression Fractures Mechanical fall in elderly patient with advanced dementia. CT lumbar spine shows: Acute S5 fracture with angulation/offset; acute mild compression fracture of T12. CT pelvis shows: Acute fracture fifth sacral segment with angulation and mild offset No neurological deficits; non-operative per ortho. History of recurrent falls; underlying mobility limitations (walker/wheelchair use). Patient has slight uptake in WBC from 10.3-13.4 likely reactive secondary to the fracture but cannot rule out below parenchymal lung disease and mention about possible pneumonia? Plan: Orhtopedic Dr Cuello was consulted, Recommendations appreiciated. Dr. Cuello recommends Onsvgpvo-[id number] Orthosis?brace Pain management. Fall precautions. PT evaluation for mobility, transfer training, and safe ambulation strategies. #Hypertension #Likely valvular heart disease History of HTN; currently hypertensive on metoprolol as above On examination, patient has systolic mumur noted on auscultation No echo on file Plan: Echo ordered as above Patient is on metoprolol succinate (home medication), will continue but considering discontinuing secondary to likely aortic stenosis as stated above Added lisinopril 5 mg p.o. daily as the patient has some degree of valvular heart disease, will increase as tolerated Monitor BP during hospitalization; adjust therapy if clinically indicated. #Parenchymal lung disease Per CT scan from 2023, patient has Extensive bilateral parenchymal disease again noted, particularly cavitary. Bronchiectasis in the left lower lobe and right middle lobe Chest x-ray during admission showed worsening extensive bilateral parenchymal disease Radiology believes differentials include pneumonia with superimposed extensive bilateral chronic parenchymal disease Patient is on room air and denies having any shortness of breath but leukocytosis is noted as stated above Plan: Will monitor WBC and symptoms for dyspnea Patient can benefit from outpatient pulmonology referral for the parenchymal lung disease #Normocytic anemia Patient presenting with hemoglobin of 10.0 Per chart review, patient's been having anemia chronically Differentials include: AOCD, iron deficiency anemia, vitamin deficiency, less likely to be hemolytic anemia or hematologic malignancy Iron panel shows: Iron 27, TIBC 201, Iron sat 13% and Ferritin 313; reticulocyte count expectedly elevated Plan: Started iron supplementation Outpatient follow-up PCP for peripheral smear #Advanced Dementia Progressive cognitive decline; requires full ADL assistance. High fall risk. Patient follows Dr. Malhotra outpatient and is on donepezil 20 mg p.o. at bedtime, memantine 5 mg p.o. twice daily, quetiapine and sertraline Plan: Continue home medications Hospital Management: Lines: PIV Bowel: Senna Diet: Cardiac with Ensure high-protein GI prophylaxis: On Protonix for Spicer's's DVT prophylaxis: Lovenox Dispo: Echo pending, pain management for T12 compression fracture and sacral segment fracture Code: Full I discussed patient's care with attending physician, Dr Kamlesh Waite PGY3 Attending Provider Attestation/Addendum I attest that I was physically present for the evaluation, physical examination, lab and imaging review of the patient with the residents. I discussed the case with the residents and agree with the findings and plans of care as documented above. At bedside today, patient appears comfortable and denies any new complaints. As per patient's RN, patient has not been eating well. Even while prompting to eat, he has not been able to finish his meals stating he does not feel like eating. Discussed with patient's on phone, who is stated that this has been going on for a while. Also discussed about possible PEG tube placement for nutrition, patient's is in agreement. We will obtain GI consult for possible placement of PEG tube. Magdiel Whitlock MD
--- NOTE | 2024-08-02 16:23 | PC.DIETICIAN ---
Nutrition Recommendations (Patient is at risk for refeeding syndrome): If PEG tube is placed and EN is initiated, consider: 1.? Osmotlite 1.5 at 20 ml/hr x 24 hrs (do not advance). If no IV fluids, water flushes 25 ml/hr (or per MD). 2.? Thiamine 100mg/day for 7 days; provide first dose at least 30 minutes before starting nutrition. 3.? Multivitamins/Minerals. 4.? Daily labs for P, K, and Mg; replace as needed. If no electrolytes disturbances after 24 hrs, advance 10 ml every 12 hrs to goal rate of 45 ml/hr x 24 hrs. Continue with water flushes 25 ml/hr (or per MD).
--- NOTE | 2024-08-02 18:53 | PD.IMCONS ---
HPI Data of Consult Requesting Physician: Magdiel Whitlock MD Primary Care Provider: Physician No Primary/Family Consult Narrative Reason for consult: Failure to thrive, PEG tube evaluation History of present illness: No history is obtained from the patient 74 years male evaluated at the request of the internal medicine team for failure to thrive and possible placement of a PEG tube The decision maker is in favor of it Patient has underlying dementia T12 close vertebral fracture and a sacral segment fracture along with history of Spicer's esophagus and essential hypertension cc:: cc: Magdiel Whitlock MD Review of Systems Review of Systems ROS Unobtainable: unobtainable due to medical condition Past Medical History Surgical History OTHER SURGICAL HX: As in the history of present illness Meds Home Medications and Allergies Home Medications ?Medication ?Instructions ?Recorded ?Confirmed ?Type aspirin 81 mg tablet,delayed 81 mg PO BID PRN Pain 09/29/23 09/29/23 History release atorvastatin 20 mg tablet 20 mg PO QPM 09/29/23 09/29/23 History cholecalciferol (vitamin D3) 125 125 mcg PO QDAY 09/29/23 09/29/23 History mcg (5,000 unit) tablet (Vitamin D3) diclofenac sodium 1 % topical gel 2 - 4 g topical BID PRN Pain 09/29/23 09/29/23 History donepezil 10 mg tablet 20 mg PO HS 09/29/23 09/29/23 History famotidine 40 mg tablet 40 mg PO HS 09/29/23 09/29/23 History memantine 5 mg tablet 5 mg PO BID 09/29/23 09/29/23 History montelukast 10 mg tablet 10 mg PO QPM 09/29/23 09/29/23 History Allergies Allergy/AdvReac Type Severity Reaction Status Date / Time No Known Allergies Allergy Verified 09/20/23 14:03 Exam Vital Signs Temp Pulse Resp BP Pulse Ox O2 Del Method 97.5 F 82 18 127/82 96 Room Air 08/02/24 16:00 08/02/24 16:00 08/02/24 16:00 08/02/24 16:00 08/02/24 16:00 08/02/24 16:00 Constitutional Comments: Chronically ill-appearing Routine Respiratory Exam Comments: Scattered rhonchi Routine Abdominal Exam Comments: Soft nontender Results Labs 08/02/24 05:30 08/02/24 05:30 Labs: Short CBC 08/02/24 Range/Units 05:30 WBC 11.6 H (3.8-10.6) Thou/mm3 Hgb 10.9 L (13.5-16.0) g/dL Hct 32.1 L (41.0-53.0) % Plt Count 605 H D (140-440) Thou/mm3 BMP 08/02/24 05:30 Sodium 138 Potassium 3.3 L Chloride 106 Carbon Dioxide 24.4 BUN < 5 L Creatinine 0.5 L Glucose 91 Calcium 8.5 Liver Function 08/02/24 Range/Units 05:30 Total Bilirubin 0.6 (0.3-1.2) mg/dL AST 47 H (0-34) U/L ALT 19 (10-49) U/L Alkaline Phosphatase 134 H (46-116) U/L Albumin 3.2 L (3.4-4.8) gm/dL Assessment and Plan Additional Assessment & Plan Additional Plan: # Failure to thrive Consent obtained from the daughter and the patient for placement of a PEG tube via fiberoptic esophagogastroduodenoscopy under intravenous moderate sedation please have been scheduled for tomorrow morning Other medical problems include # Sacral segment fracture # T12 closed fracture # Dementia thank you very much for the opportunity to participate in the care of this patient
--- NOTE | 2024-08-02 19:45 | PC.NURSE ---
Md Esqueda came and talked to pts and pts daughter at bedside, both agreed to the procedure. Daughter at bedside signed the consent.
[2024-08-02] MEDS: SERTRALINE HCL 25 MG TABLET 50 MG PO (20:09)
[2024-08-02] MEDS: MONTELUKAST SODIUM 10 MG TABLET PO (20:09)
[2024-08-03] VITALS (20 sets, daily range): BP systolic 104–147; BP diastolic 62–93; PULSE 74–101; RESP 8–32; TEMP 36.1–36.7; O2SAT 91–99
[2024-08-03 06:09] LABS: Basophils # (Auto) 0.1 Thou/mm3 (0.0-0.2); Basophils % (Auto) 1 % (0-2.5); Eosinophils # (Auto) 0.3 Thou/mm3 (0.0-0.5); Eosinophils % (Auto) 3 % (0-10); Hematocrit 27.8 % (41.0-53.0); Hemoglobin 9.7 g/dL (13.5-16.0); Immature Granulocytes % (Auto) 0 % (0-0); Immature Granulocytes Auto 0.04 Thou/mm3 (0.00-0.00); Lymphocytes # (Auto) 1.4 Thou/mm3 (1.0-4.8); Lymphocytes % (Auto) 13 % (10-50); Mean Corpuscular HGB Conc 34.9 g/dl (31.0-37.0); Mean Corpuscular Hemoglobin 28.8 pg (25.0-35.0); Mean Corpuscular Volume 83 fL (80-100); Monocytes # (Auto) 1.2 Thou/mm3 (0.0-0.8); Monocytes % (Auto) 11 % (0-12); Neutrophils # (Auto) 7.8 Thou/mm3 (1.8-7.7); Neutrophils % (Auto) 72 % (37-80); Nucleated Red Blood Cell % 0 /100 WBC (0); Platelet Count 704 Thou/mm3 (140-440); RDW Standard Deviation 47.2 fL (35.1-43.9); Red Blood Count 3.37 Miln/mm3 (4.50-5.90); White Blood Count 10.7 Thou/mm3 (3.8-10.6)
[2024-08-03 06:42] LABS: Alanine Aminotransferase 20 U/L (10-49); Albumin, Serum 2.8 gm/dL (3.4-4.8); Albumin/Globulin Ratio 0.9 (1.2-2.2); Alkaline Phosphatase 116 U/L (46-116); Anion Gap 11 (7-16); Aspartate Amino Transferase 46 U/L (0-34); BUN/Creatinine Ratio 10 Ratio (12-20); Bilirubin,Total 0.5 mg/dL (0.3-1.2); Blood Urea Nitrogen < 5 mg/dL (9-23); Calcium 7.9 mg/dL (8.3-10.6); Calcium (Corrected) 8.9 mg/dL (8.5-10.1); Carbon Dioxide 24.5 mMol/L (20.0-31.0); Chloride 106 mMol/L (98-107); Creatinine (Component) 0.5 mg/dL (0.6-1.3); Estimated Creatinine Clearance 92.1 mL/min (>60); Glucose 78 mg/dL (74-106); Osmolality,Calculated 277 (275-295); Potassium 3.5 mMol/L (3.4-5.1); Sodium 141 mMol/L (136-145); Total Protein 5.8 gm/dL (5.7-8.2); eGFR > 60 See Note
[2024-08-03] MEDS: FUROSEMIDE INJ 10 MG/ML VIAL 2 ML 20 MG IVP (08:32)
[2024-08-03] MEDS: ceFAZolin/D5W 1 GM IVPB 1 GM/50 ML BAG IV (08:32)
--- NOTE | 2024-08-03 12:13 | PD.RESPRO ---
Documentation for date of: 08/03/24 Subjective Subjective Interval history: 08/03/2024: Overnight the patient was kept n.p.o. for tentatively scheduled PEG tube placement. Patient's family updated and consent obtained which shared decision making regarding the patient's poor p.o. intake and significant weight loss over the past several years. Patient's family is in agreement on pursuing PEG tube placement for the patient. Gastroenterology will complete the procedure sometime this afternoon. On echo findings, patient has severe tricuspid regurgitation with elevated RVSP and will require cardio referral when ready to be discharged. Per telemetry, patient's been also having instances of tachycardia with heart rate spiking to 150?180s. As such, we will restart the patient's metoprolol. Patient was started on a x 1 dose of Lasix for valvular heart disease and grade 1 diastolic dysfunction but we will hold this medication at this time to avoid dropping the patient's blood pressure too much. Patient has thrombocytosis as well likely reactive but will require outpatient follow-up with CBC. Expect discharge within the next 24 hours if the patient remains stable. Exam Vital Signs Temp Pulse Resp BP Pulse Ox O2 Del Method 97.4 F 84 16 139/74 H 97 Room Air 08/03/24 08:00 08/03/24 08:32 08/03/24 08:00 08/03/24 08:32 08/03/24 08:00 08/03/24 08:00 Narrative Exam Physical Exam: Constitutional: Cachectic male that is lethargic but arousable CVS: RRR, S1 and S2 present, no murmurs, rubs or gallops . RESP: CTAB, no SOB, no rales, rhonchi or wheezing. No respiratory Distress GI: Normal BS, Nontender/Nondistended. MSK: Full range of motion, No trauma or deformities or masses. Skin: Warm to touch, Dry. No rashes or lesions. 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 Sensation grossly intact. Psych: (AAO) x 1. Able to follow commands and responds appropriately to simple questions Objective Labs 08/03/24 05:07 08/03/24 05:07 Labs: Laboratory Results - last 24 hr 08/03/24 05:07 WBC 10.7 H RBC 3.37 L Hgb 9.7 L Hct 27.8 L MCV 83 MCH 28.8 MCHC 34.9 RDW Std Deviation 47.2 H Plt Count 704 H D Neut % (Auto) 72 Lymph % (Auto) 13 [place] % (Auto) 11 Eos % (Auto) 3 Baso % (Auto) 1 Neut # (Auto) 7.8 H Lymph # (Auto) 1.4 [place] # (Auto) 1.2 H Eos # (Auto) 0.3 Baso # (Auto) 0.1 Immature Gran # (Auto) 0.04 H Absolute Nucleated RBC 0.00 Immature Gran % 0 Nucleated RBC % 0 Sodium 141 Potassium 3.5 Chloride 106 Carbon Dioxide 24.5 Anion Gap 11 BUN < 5 L Creatinine 0.5 L Estim Creat Clear Calc 92.1 eGFR > 60 BUN/Creatinine Ratio 10 L Glucose 78 Calculated Osmolality 277 Calcium 7.9 L Corrected Calcium 8.9 Total Bilirubin 0.5 AST 46 H ALT 20 Alkaline Phosphatase 116 Total Protein 5.8 Albumin 2.8 L Globulin 3.0 Albumin/Globulin Ratio 0.9 L Quality Measures Quality Measures none Advance care planning discussed with:: patient and spouse Assessment & Plan Assessment Current Active Medications: Generic Name Dose Route Start Last Admin Trade Name Freq PRN Reason Stop Dose Admin Acetaminophen 650 mg 07/29/24 20:00 Acetaminophen 325 Mg Tablet PO 08/28/24 19:59 Q6H PRN Fever >101.5 Hydrocodone Bitart/Acetaminophen 1 tab 07/29/24 20:00 Hydrocodone/Apap 5/325 Tablet PO 08/03/24 19:59 Q4HR PRN PAIN SCALE 4-6 (Moderate Donepezil HCl 10 mg 07/30/24 09:00 08/03/24 10:27 Donepezil Hcl 5 Mg Tablet PO 08/29/24 08:59 Not Given DAILY HOMAR Dronabinol 2.5 mg 08/03/24 08:15 08/03/24 09:56 Dronabinol 2.5 Mg Capsule PO 08/31/24 13:59 Not Given BIDAC HOMAR Enoxaparin Sodium 40 mg 07/30/24 09:00 08/03/24 10:27 Enoxaparin Sod Inj 40 Mg/0.4 Ml Syringe SC 08/13/24 08:59 Not Given QDAY HOMAR Ferrous Sulfate 325 mg 08/01/24 11:00 08/03/24 10:28 Ferrous Sulf 325 Mg Tablet PO 08/31/24 10:59 Not Given QOD HOMAR Furosemide 20 mg 08/03/24 09:00 08/03/24 08:32 Furosemide Inj 10 Mg/Ml Vial 2 Ml IVP 09/02/24 08:59 20 mg QDAY HOMAR Administration Lisinopril 5 mg 08/01/24 10:45 08/03/24 10:28 Lisinopril 2.5 Mg Tablet PO 08/31/24 10:44 Not Given QDAY HOMAR Memantine 5 mg 07/29/24 21:00 08/03/24 10:28 Memantine Hcl 5 Mg Tablet PO 08/28/24 20:59 Not Given BID HOMAR Montelukast Sodium 10 mg 07/29/24 21:00 08/02/24 20:09 Montelukast Sodium 10 Mg Tablet PO 08/28/24 20:59 10 mg HS HOMAR Administration Pantoprazole Sodium 40 mg 07/29/24 21:00 08/03/24 10:29 Pantoprazole 40 Mg Tablet PO 08/28/24 20:59 Not Given BID HOMAR Quetiapine Fumarate 25 mg 07/30/24 09:00 08/03/24 10:29 Quetiapine Fumarate 25 Mg Tablet PO 08/29/24 08:59 Not Given QDAY HOMAR Sennosides 1 tab 07/31/24 09:00 08/03/24 10:29 Senna Tablet PO 08/30/24 08:59 Not Given QDAY HOMAR Protocol Sertraline HCl 50 mg 07/29/24 21:00 08/02/24 20:09 Sertraline Hcl 25 Mg Tablet PO 08/28/24 20:59 50 mg HS HOMAR Administration Plan 74-year-old male patient with past medical history of dementia, hyperlipidemia, Spicer's esophagus, bronchiectasis, presented to the ED due to recent history of fall down. Patient at baseline is confused and oriented only to self patient was not aware of his presentation and why he is in the hospital. Patient was admitted for management of T12 and sacral fractures and workup for possible syncope #Failure to thrive #Toney's esophagus Patient's Esophagus is a chronic condition however patient has not been eating adequately during his stay. When speaking to family they said the patient does not eat unless constantly prompted There is a concern for patient not meeting his calorie intake which could lead to further complications during his stay. A trial of dronabinol was used but there was limited to no improvement in appetite Plan: Continue protonix 40mg PO BID. GI consultation order for evaluation for PEG tube insertion #Hypertension #HFpEF (EF 50 to 60% with diastolic dysfunction stage I) and moderate to severe tricuspid regurgitation #Mild pulmonary arterial hypertension #Tachycardia History of HTN; currently hypertensive on metoprolol as above On examination, patient has systolic mumur noted on auscultation Echo from 08/01 shows: LV appears normal with EF 55-60%. Diastolic Dysfunction I. RV appears normal with elevated RVSP 45 mmHg. LA is mildly dilated. Mild-Mod MR & MAC Moderate & mild AI. Mod-Severe TR Plan: Patient is on metoprolol succinate (home medication), will continue as the patient's been having episodes of sinus tachycardia Added lisinopril 5 mg p.o. daily as the patient has some degree of valvular heart disease, will increase as tolerated X 1 of Lasix 20 mg given secondary to echo findings but we will hold at this time as the patient is not in acute exacerbation Monitor BP during hospitalization; adjust therapy if clinically indicated. #Sacral segment fracture #T12 Vertebral body acute Compression Fractures Mechanical fall in elderly patient with advanced dementia. CT lumbar spine shows: Acute S5 fracture with angulation/offset; acute mild compression fracture of T12. CT pelvis shows: Acute fracture fifth sacral segment with angulation and mild offset No neurological deficits; non-operative per ortho. History of recurrent falls; underlying mobility limitations (walker/wheelchair use). Patient has slight uptake in WBC from 10.3-13.4 likely reactive secondary to the fracture but cannot rule out below parenchymal lung disease and mention about possible pneumonia? Plan: Orhtopedic Dr Cuello was consulted, Recommendations appreiciated. Dr. Cuello recommends Sbkzpazr-Cyxqfy-Akxaei Orthosis?brace Pain management. Fall precautions. PT evaluation for mobility, transfer training, and safe ambulation strategies. #Orthostatic hypotension Patient presenting with fall, which was unwitnessed On examination patient does have a 5 out of 6 diastolic murmur on auscultation Orthostatic vitals are positive, systolic blood pressure dropped greater than 20 but heart rate was stable Patient is on metoprolol succinate 25 mg p.o. daily for presumably hypertension? Physical therapy was able to work with the patient and recommendation is discharge to rehabilitation center Plan: Orthostatic hypotension precautions Compression stockings #Parenchymal lung disease Per CT scan from 2023, patient has Extensive bilateral parenchymal disease again noted, particularly cavitary. Bronchiectasis in the left lower lobe and right middle lobe Chest x-ray during admission showed worsening extensive bilateral parenchymal disease Radiology believes differentials include pneumonia with superimposed extensive bilateral chronic parenchymal disease Patient is on room air and denies having any shortness of breath but leukocytosis is noted as stated above Plan: Will monitor WBC and symptoms for dyspnea Patient can benefit from outpatient pulmonology referral for the parenchymal lung disease #Thrombocytopenia Likely secondary to reactive process versus normocytic anemia/iron deficiency anemia versus less likely essential thrombocytopenia, polycythemia vera or myelofibrosis Plan: Continue to monitor with morning labs Follow-up outpatient with follow-up CBC #Iron deficiency anemia Patient presenting with hemoglobin of 10.0 Per chart review, patient's been having anemia chronically Differentials include: AOCD, iron deficiency anemia, vitamin deficiency, less likely to be hemolytic anemia or hematologic malignancy Iron panel shows: Iron 27, TIBC 201, Iron sat 13% and Ferritin 313; reticulocyte count expectedly elevated Plan: Continue iron supplementation Outpatient follow-up PCP for peripheral smear #Advanced Dementia Progressive cognitive decline; requires full ADL assistance. High fall risk. Patient follows Dr. Malhotra outpatient and is on donepezil 20 mg p.o. at bedtime, memantine 5 mg p.o. twice daily, quetiapine and sertraline Plan: Continue home medications Hospital Management: Lines: PIV Bowel: Senna Diet: Cardiac with Ensure high-protein GI prophylaxis: On Protonix for Spicer's's DVT prophylaxis: Lovenox Dispo: PEG tube placement for failure to thrive, pain management for T12 compression fracture and sacral segment fracture Code: Full Patient seen and examined with attending Dr. Whitlock and senior resident Dr. Mariann Cox, PGY-1 -- ATTESTATION: I saw and examined the patient this morning, and I agree with current management stated by the resident. Will continue to monitor patient during their stay. Disclaimer: Despite multiple revisions, due to the dictation software being used, the document bellow may not be free of grammatical errors including phonetic/typographic errors. However, this does not deter from our commitment to providing health care in the patient's best interest in mind. Dr. Morgan Waite, PGY-3 Attending Provider Attestation/Addendum I attest that I was physically present for the evaluation, physical examination, lab and imaging review of the patient with the residents. I discussed the case with the residents and agree with the findings and plans of care as documented above. At bedside today, patient appears comfortable and denies any back pain. He is not able to have good oral intake. Discussed with family at bedside, agreed on PEG tube placement. Patient is planned for PEG tube placement with GI. Family stated that they would like to take patient to home if possible on discharge instead of SNF. We will discuss with case management regarding placement. Magdiel Whitlock MD
--- NOTE | 2024-08-03 14:46 | PC.NURSE ---
Patient to OR surgery via gurney for PEG tube placement.
--- NOTE | 2024-08-03 15:10 | SUR.PHASEI ---
Arrived to recovery bay 1 via [facility]. Report received from Lanny AUSTIN. Resting with eyes closed. Respiration even and unlabored. No s/o distress or discomfort. PEG tube intact, dressing C/D/I. Abdominal binder applied, tolerated well.
--- NOTE | 2024-08-03 15:45 | SUR.PHASEI ---
PEG tube remains intact, dressing C/D/I. Abdominal binder in place.
--- NOTE | 2024-08-03 15:45 | SUR.PHASEI ---
Transferred to room 363 via rney. Resting with eyes open. Acknowledges that I'm taking him back to his room and that procedure is complete. Transferred to bed and made comfortable, bed rails up x3, call light within reach, bed alarm turned on. No s/o distress or discomfort.
[2024-08-03] MEDS: SODIUM CHLORIDE 0.9% IV (16:57)
[2024-08-03] MEDS: THIAMINE IV (16:57)
[2024-08-03] MEDS: MULTIVITAMIN IV (16:57)
[2024-08-03] MEDS: droNABinol 2.5 MG CAPSULE PO (17:51)
[2024-08-03] MEDS: MEMANTINE HCL 5 MG TABLET PO (20:01)
[2024-08-03] MEDS: SERTRALINE HCL 25 MG TABLET 50 MG PO (20:01)
[2024-08-03] MEDS: METOPROLOL SUCCINATE XL 25 MG TABCR PO (20:01)
[2024-08-03] MEDS: PANTOPRAZOLE 40 MG TABLET PO (20:02)
[2024-08-03] MEDS: MONTELUKAST SODIUM 10 MG TABLET PO (20:02)
[2024-08-04] VITALS (8 sets, daily range): BP systolic 126–146; BP diastolic 68–89; PULSE 76–92; RESP 17–19; TEMP 36.3–37.1; O2SAT 90–94; BMI 18.7
[2024-08-04 06:08] LABS: Basophils # (Auto) 0.1 Thou/mm3 (0.0-0.2); Basophils % (Auto) 1 % (0-2.5); Eosinophils # (Auto) 0.1 Thou/mm3 (0.0-0.5); Eosinophils % (Auto) 1 % (0-10); Hematocrit 27.9 % (41.0-53.0); Hemoglobin 9.5 g/dL (13.5-16.0); Immature Granulocytes % (Auto) 0 % (0-0); Immature Granulocytes Auto 0.04 Thou/mm3 (0.00-0.00); Lymphocytes # (Auto) 1.6 Thou/mm3 (1.0-4.8); Lymphocytes % (Auto) 12 % (10-50); Mean Corpuscular HGB Conc 34.1 g/dl (31.0-37.0); Mean Corpuscular Volume 82 fL (80-100); Monocytes # (Auto) 1.4 Thou/mm3 (0.0-0.8); Monocytes % (Auto) 11 % (0-12); Neutrophils # (Auto) 9.5 Thou/mm3 (1.8-7.7); Neutrophils % (Auto) 75 % (37-80); Nucleated Red Blood Cell % 0 /100 WBC (0); Platelet Count 483 Thou/mm3 (140-440); RDW Standard Deviation 47.5 fL (35.1-43.9); Red Blood Count 3.39 Miln/mm3 (4.50-5.90); White Blood Count 12.7 Thou/mm3 (3.8-10.6)
[2024-08-04 06:32] LABS: Alanine Aminotransferase 18 U/L (10-49); Albumin, Serum 2.8 gm/dL (3.4-4.8); Albumin/Globulin Ratio 0.9 (1.2-2.2); Alkaline Phosphatase 108 U/L (46-116); Anion Gap 10 (7-16); Aspartate Amino Transferase 27 U/L (0-34); BUN/Creatinine Ratio 18 Ratio (12-20); Bilirubin,Total 0.4 mg/dL (0.3-1.2); Blood Urea Nitrogen 7 mg/dL (9-23); Calcium 8.5 mg/dL (8.3-10.6); Calcium (Corrected) 9.5 mg/dL (8.5-10.1); Carbon Dioxide 29.1 mMol/L (20.0-31.0); Chloride 102 mMol/L (98-107); Creatinine (Component) 0.4 mg/dL (0.6-1.3); Estimated Creatinine Clearance 115.1 mL/min (>60); Globulin 3.2 gm/dL (2.3-3.5); Glucose 120 mg/dL (74-106); Osmolality,Calculated 280 (275-295); Sodium 141 mMol/L (136-145); eGFR > 60 See Note
[2024-08-04] MEDS: POTASSIUM CHLORIDE 10% 20 MEQ/15 ML UDC 40 MEQ GT (08:02)
[2024-08-04] MEDS: ENOXAPARIN SOD INJ 40 MG/0.4 ML SYRINGE SC (08:02)
[2024-08-04] MEDS: Lisinopril 2.5 MG TABLET 5 MG PO (08:02)
[2024-08-04] MEDS: DONEPEZIL HCL 5 MG TABLET 10 MG PO (08:02)
[2024-08-04] MEDS: PANTOPRAZOLE 40 MG TABLET PO ×2 (08:02→20:45)
[2024-08-04] MEDS: MEMANTINE HCL 5 MG TABLET PO ×2 (08:02→20:45)
[2024-08-04] MEDS: QUEtiapine FUMARATE 25 MG TABLET PO (08:02)
[2024-08-04] MEDS: droNABinol 2.5 MG CAPSULE PO ×2 (08:03→17:29)
[2024-08-04] MEDS: SENNA TABLET 1 TAB PO (08:03)
[2024-08-04 10:59] LABS: Magnesium 1.5 mg/dL (1.6-2.6); Phosphorous 3.2 mg/dL (2.4-5.1)
--- NOTE | 2024-08-04 11:59 | PC.SS ---
Follow up note: Pt now has peg tube. Advance diet. SS spoke to Jessica from [facility], [facility] who is aware pt now has peg tube and they will still accept pt. [facility] is requesting updated inquiry.
--- NOTE | 2024-08-04 13:33 | PD.RESPRO ---
Documentation for date of: 08/04/24 Subjective Subjective Interval history: 08/04/2024: No acute overnight events to report. Patient seen and examined in hospital bed at his normal baseline (alert oriented x 1), answering questions appropriately and denies having any concerning symptoms such as chest pain/tightness, shortness of breath, abdominal pain, dizziness or new headaches. Patient is status post PEG tube placement and we are in the process of increasing rate of tube feeds by 10 mL every 12 hours for goal rate of 45 mL/h. Patient can also be started on oral diet per dietitian consultation. Exam Vital Signs Temp Pulse Resp BP Pulse Ox O2 Del Method O2 Flow Rate 97.4 F 78 19 134/80 H 92 L Room Air 2 08/04/24 07:38 08/04/24 08:02 08/04/24 07:38 08/04/24 08:02 08/04/24 07:38 08/04/24 04:00 08/03/24 15:25 Narrative Exam Physical Exam: Constitutional: Cachectic male that is lethargic but arousable CVS: RRR, S1 and S2 present, no murmurs, rubs or gallops . RESP: CTAB, no SOB, no rales, rhonchi or wheezing. No respiratory Distress GI: Normal BS, Nontender/Nondistended. MSK: Full range of motion, No trauma or deformities or masses. Skin: Warm to touch, Dry. No rashes or lesions. 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 Sensation grossly intact. Psych: (AAO) x 1. Able to follow commands and responds appropriately to simple questions Objective Labs 08/05/24 09:29 08/05/24 05:18 Labs: Laboratory Results - last 24 hr 08/04/24 05:10 WBC 12.7 H RBC 3.39 L Hgb 9.5 L Hct 27.9 L MCV 82 MCH 28.0 MCHC 34.1 RDW Std Deviation 47.5 H Plt Count 483 H D Neut % (Auto) 75 Lymph % (Auto) 12 [place] % (Auto) 11 Eos % (Auto) 1 Baso % (Auto) 1 Neut # (Auto) 9.5 H Lymph # (Auto) 1.6 [place] # (Auto) 1.4 H Eos # (Auto) 0.1 Baso # (Auto) 0.1 Immature Gran # (Auto) 0.04 H Absolute Nucleated RBC 0.00 Immature Gran % 0 Nucleated RBC % 0 Sodium 141 Potassium 3.0 L D Chloride 102 Carbon Dioxide 29.1 Anion Gap 10 BUN 7 L Creatinine 0.4 L Estim Creat Clear Calc 115.1 eGFR > 60 BUN/Creatinine Ratio 18 Glucose 120 H D Calculated Osmolality 280 Calcium 8.5 Corrected Calcium 9.5 Phosphorus 3.2 Magnesium 1.5 L Total Bilirubin 0.4 AST 27 ALT 18 Alkaline Phosphatase 108 Total Protein 6.0 Albumin 2.8 L Globulin 3.2 Albumin/Globulin Ratio 0.9 L Quality Measures Quality Measures none Advance care planning discussed with:: patient and spouse Assessment & Plan Assessment Current Active Medications: Generic Name Dose Route Start Last Admin Trade Name Freq PRN Reason Stop Dose Admin Acetaminophen 650 mg 07/29/24 20:00 Acetaminophen 325 Mg Tablet PO 08/28/24 19:59 Q6H PRN Fever >101.5 Donepezil HCl 10 mg 07/30/24 09:00 08/04/24 08:02 Donepezil Hcl 5 Mg Tablet PO 08/29/24 08:59 10 mg DAILY HOMAR Administration Dronabinol 2.5 mg 08/03/24 08:15 08/04/24 08:03 Dronabinol 2.5 Mg Capsule PO 08/31/24 13:59 2.5 mg BIDAC HOMAR Administration Enoxaparin Sodium 40 mg 07/30/24 09:00 08/04/24 08:02 Enoxaparin Sod Inj 40 Mg/0.4 Ml Syringe SC 08/13/24 08:59 40 mg QDAY HOMAR Administration Ferrous Sulfate 325 mg 08/01/24 11:00 08/03/24 10:28 Ferrous Sulf 325 Mg Tablet PO 08/31/24 10:59 Not Given QOD HOMAR Furosemide 20 mg 08/03/24 09:00 08/03/24 08:32 Furosemide Inj 10 Mg/Ml Vial 2 Ml IVP 09/02/24 08:59 20 mg QDAY HOMAR Administration Multivitamins/Minerals 10 ml/ 1,011 mls @ 50 mls/hr 08/03/24 16:15 08/03/24 16:57 Thiamine HCl 100 mg/ Sodium IV 08/06/24 12:29 50 mls/hr Chloride Q24H HOMAR Administration Lisinopril 5 mg 08/01/24 10:45 08/04/24 08:02 Lisinopril 2.5 Mg Tablet PO 08/31/24 10:44 5 mg QDAY HOMAR Administration Memantine 5 mg 07/29/24 21:00 08/04/24 08:02 Memantine Hcl 5 Mg Tablet PO 08/28/24 20:59 5 mg BID HOMAR Administration Metoprolol Succinate 25 mg 08/03/24 21:00 08/03/24 20:01 Metoprolol Succinate Xl 25 Mg Tabcr PO 09/02/24 20:59 25 mg HS HOMAR Administration Montelukast Sodium 10 mg 07/29/24 21:00 08/03/24 20:02 Montelukast Sodium 10 Mg Tablet PO 08/28/24 20:59 10 mg HS HOMAR Administration Pantoprazole Sodium 40 mg 07/29/24 21:00 08/04/24 08:02 Pantoprazole 40 Mg Tablet PO 08/28/24 20:59 40 mg BID HOMAR Administration Quetiapine Fumarate 25 mg 07/30/24 09:00 08/04/24 08:02 Quetiapine Fumarate 25 Mg Tablet PO 08/29/24 08:59 25 mg QDAY HOMAR Administration Sennosides 1 tab 07/31/24 09:00 08/04/24 08:03 Senna Tablet PO 08/30/24 08:59 1 tab QDAY HOMAR Administration Protocol Sertraline HCl 50 mg 07/29/24 21:00 08/03/24 20:01 Sertraline Hcl 25 Mg Tablet PO 08/28/24 20:59 50 mg HS HOMAR Administration Plan 74-year-old male patient with past medical history of dementia, hyperlipidemia, Spicer's esophagus, bronchiectasis, presented to the ED due to recent history of fall down. Patient at baseline is confused and oriented only to self patient was not aware of his presentation and why he is in the hospital. Patient was admitted for management of T12 and sacral fractures and workup for possible syncope #Failure to thrive, s/p PEG tube placement #Toney's esophagus Patient's Esophagus is a chronic condition however patient has not been eating adequately during his stay. When speaking to family they said the patient does not eat unless constantly prompted There is a concern for patient not meeting his calorie intake which could lead to further complications during his stay. A trial of dronabinol was used but there was limited to no improvement in appetite Customer Contact Sales Associate consulted, appreciate recommendations Plan: Per dietitian, advance tube feeds from 20 mL/h to 45 mL/h (10 mL every 12 hours) Continue water flushes 25 mL/h Will resume cardiac diet; dysphagia type II Continue protonix 40mg PO BID. GI consultation order for evaluation for PEG tube insertion #Hypertension #HFpEF (EF 50 to 60% with diastolic dysfunction stage I) and moderate to severe tricuspid regurgitation #Mild pulmonary arterial hypertension #Tachycardia History of HTN; currently hypertensive on metoprolol as above On examination, patient has systolic mumur noted on auscultation Echo from 08/01 shows: LV appears normal with EF 55-60%. Diastolic Dysfunction I. RV appears normal with elevated RVSP 45 mmHg. LA is mildly dilated. Mild-Mod MR & MAC Moderate & mild AI. Mod-Severe TR Plan: Patient is on metoprolol succinate (home medication), will continue as the patient's been having episodes of sinus tachycardia Added lisinopril 5 mg p.o. daily as the patient has some degree of valvular heart disease, will increase as tolerated Monitor BP during hospitalization; adjust therapy if clinically indicated. #Sacral segment fracture #T12 Vertebral body acute Compression Fractures Mechanical fall in elderly patient with advanced dementia. CT lumbar spine shows: Acute S5 fracture with angulation/offset; acute mild compression fracture of T12. CT pelvis shows: Acute fracture fifth sacral segment with angulation and mild offset No neurological deficits; non-operative per ortho. History of recurrent falls; underlying mobility limitations (walker/wheelchair use). Patient has slight uptake in WBC from 10.3-13.4 likely reactive secondary to the fracture but cannot rule out below parenchymal lung disease and mention about possible pneumonia? Plan: Orhtopedic Dr Cuello was consulted, Recommendations appreiciated. Dr. Cuello recommends Ttblfflo-Dqvazt-[place]uld[place] Orthosis?brace Pain management. Fall precautions. PT evaluation for mobility, transfer training, and safe ambulation strategies. #Orthostatic hypotension Patient presenting with fall, which was unwitnessed On examination patient does have a 5 out of 6 diastolic murmur on auscultation Orthostatic vitals are positive, systolic blood pressure dropped greater than 20 but heart rate was stable Patient is on metoprolol succinate 25 mg p.o. daily for presumably hypertension? Physical therapy was able to work with the patient and recommendation is discharge to rehabilitation center Plan: Orthostatic hypotension precautions Compression stockings #Parenchymal lung disease Per CT scan from 2023, patient has Extensive bilateral parenchymal disease again noted, particularly cavitary. Bronchiectasis in the left lower lobe and right middle lobe Chest x-ray during admission showed worsening extensive bilateral parenchymal disease Radiology believes differentials include pneumonia with superimposed extensive bilateral chronic parenchymal disease Patient is on room air and denies having any shortness of breath but leukocytosis is noted as stated above Plan: Will monitor WBC and symptoms for dyspnea Patient can benefit from outpatient pulmonology referral for the parenchymal lung disease #Thrombocytopenia Likely secondary to reactive process versus normocytic anemia/iron deficiency anemia versus less likely essential thrombocytopenia, polycythemia vera or myelofibrosis Plan: Continue to monitor with morning labs Follow-up outpatient with follow-up CBC #Iron deficiency anemia Patient presenting with hemoglobin of 10.0 Per chart review, patient's been having anemia chronically Differentials include: AOCD, iron deficiency anemia, vitamin deficiency, less likely to be hemolytic anemia or hematologic malignancy Iron panel shows: Iron 27, TIBC 201, Iron sat 13% and Ferritin 313; reticulocyte count expectedly elevated Plan: Continue iron supplementation Outpatient follow-up PCP for peripheral smear #Advanced Dementia Progressive cognitive decline; requires full ADL assistance. High fall risk. Patient follows Dr. Malhotra outpatient and is on donepezil 20 mg p.o. at bedtime, memantine 5 mg p.o. twice daily, quetiapine and sertraline Plan: Continue home medications Hospital Management: Lines: PIV Bowel: Senna Diet: Cardiac with Ensure high-protein, PEG tube feeds GI prophylaxis: On Protonix for Spicer's's DVT prophylaxis: Lovenox Dispo: Advancing tube feeds, pain management for T12 compression fracture and sacral segment fracture Code: Full Patient seen and examined with attending Dr. Mitchell and senior resident Dr. Mariann Cox, PGY-1 -- ATTESTATION: I saw and examined the patient this morning, and I agree with current management stated by the resident. Will continue to monitor patient during their stay. Disclaimer: Despite multiple revisions, due to the dictation software being used, the document bellow may not be free of grammatical errors including phonetic/typographic errors. However, this does not deter from our commitment to providing health care in the patient's best interest in mind. Dr. Morgan Waite, PGY-3 Attending Provider Attestation/Addendum Patient seen and examined at bedside with resident. Agree with assessment and plan as dictated above. Patient appears to be tolerating tube feeds at this time in addition to po diet for comfort. Tube feeds still not at goal, will continue to monitor and improve rate as receommded by dietitian. Anticipate discharge in next 24-48 hours. Chepe Mitchell MD
[2024-08-04] MEDS: Magnesium Sulfate 2 GM Ivpb 2 GM/50 ML BAG IV (14:08)
[2024-08-04] MEDS: MULTIVITAMIN IV (16:09)
[2024-08-04] MEDS: THIAMINE IV (16:09)
[2024-08-04] MEDS: SODIUM CHLORIDE 0.9% IV (16:09)
[2024-08-04] MEDS: MONTELUKAST SODIUM 10 MG TABLET PO (20:45)
[2024-08-04] MEDS: METOPROLOL SUCCINATE XL 25 MG TABCR PO (20:45)
[2024-08-04] MEDS: SERTRALINE HCL 25 MG TABLET 50 MG PO (20:45)
--- NOTE | 2024-08-04 21:26 | ESPR_ITS ---
Documentation for date of: 08/04/24 Subjective Subjective Interval history: Patient status post placement of a PEG tube No drainage at the PEG site Exam Vital Signs Temp Pulse Resp BP Pulse Ox O2 Del Method O2 Flow Rate 98.7 F 92 18 127/80 94 L Room Air 2 08/04/24 20:00 08/04/24 20:45 08/04/24 20:00 08/04/24 20:45 08/04/24 20:00 08/04/24 20:00 08/03/24 15:25 Objective Labs 08/04/24 05:10 08/04/24 05:10 Labs: Laboratory Results - last 24 hr 08/04/24 05:10 WBC 12.7 H RBC 3.39 L Hgb 9.5 L Hct 27.9 L MCV 82 MCH 28.0 MCHC 34.1 RDW Std Deviation 47.5 H Plt Count 483 H D Neut % (Auto) 75 Lymph % (Auto) 12 [place] % (Auto) 11 Eos % (Auto) 1 Baso % (Auto) 1 Neut # (Auto) 9.5 H Lymph # (Auto) 1.6 [place] # (Auto) 1.4 H Eos # (Auto) 0.1 Baso # (Auto) 0.1 Immature Gran # (Auto) 0.04 H Absolute Nucleated RBC 0.00 Immature Gran % 0 Nucleated RBC % 0 Sodium 141 Potassium 3.0 L D Chloride 102 Carbon Dioxide 29.1 Anion Gap 10 BUN 7 L Creatinine 0.4 L Estim Creat Clear Calc 115.1 eGFR > 60 BUN/Creatinine Ratio 18 Glucose 120 H D Calculated Osmolality 280 Calcium 8.5 Corrected Calcium 9.5 Phosphorus 3.2 Magnesium 1.5 L Total Bilirubin 0.4 AST 27 ALT 18 Alkaline Phosphatase 108 Total Protein 6.0 Albumin 2.8 L Globulin 3.2 Albumin/Globulin Ratio 0.9 L Impressions Impression: Failure to thrive Status post recent of a PEG tube Continue nutrition via enteral hyperalimentation Assessment & Plan A&P Narrative # Failure to thrive Consent obtained from the daughter and the patient for placement of a PEG tube via fiberoptic esophagogastroduodenoscopy under intravenous moderate sedation please have been scheduled for tomorrow morning Other medical problems include # Sacral segment fracture # T12 closed fracture # Dementia thank you very much for the opportunity to participate in the care of this patient Time Spent With Patient Time: Total time spent is greater than 50% in coordination of care (as documented) at patient's floor/unit and/or counseling patient:
[2024-08-05] VITALS: BP 132/66; PULSE 75; RESP 16; TEMP 37; O2SAT 95
[2024-08-05 04:00] VITALS: BP 138/95; PULSE 80; RESP 16; TEMP 36.1; O2SAT 93
[2024-08-05 06:14] LABS: Basophils # (Auto) 0.1 Thou/mm3 (0.0-0.2); Basophils % (Auto) 0 % (0-2.5); Eosinophils # (Auto) 0.2 Thou/mm3 (0.0-0.5); Eosinophils % (Auto) 1 % (0-10); Hematocrit 29.6 % (41.0-53.0); Hemoglobin 9.8 g/dL (13.5-16.0); Immature Granulocytes % (Auto) 0 % (0-0); Immature Granulocytes Auto 0.05 Thou/mm3 (0.00-0.00); Lymphocytes # (Auto) 1.9 Thou/mm3 (1.0-4.8); Lymphocytes % (Auto) 14 % (10-50); Mean Corpuscular HGB Conc 33.1 g/dl (31.0-37.0); Mean Corpuscular Hemoglobin 27.5 pg (25.0-35.0); Mean Corpuscular Volume 83 fL (80-100); Monocytes # (Auto) 1.6 Thou/mm3 (0.0-0.8); Monocytes % (Auto) 12 % (0-12); Neutrophils # (Auto) 9.8 Thou/mm3 (1.8-7.7); Neutrophils % (Auto) 72 % (37-80); Nucleated Red Blood Cell % 0 /100 WBC (0); Platelet Count 513 Thou/mm3 (140-440); RDW Standard Deviation 48.1 fL (35.1-43.9); Red Blood Count 3.56 Miln/mm3 (4.50-5.90); White Blood Count 13.6 Thou/mm3 (3.8-10.6)
[2024-08-05 06:57] LABS: Alanine Aminotransferase 16 U/L (10-49); Albumin/Globulin Ratio 0.9 (1.2-2.2); Alkaline Phosphatase 121 U/L (46-116); Anion Gap 7 (7-16); Aspartate Amino Transferase 25 U/L (0-34); BUN/Creatinine Ratio 15 Ratio (12-20); Bilirubin,Total 0.5 mg/dL (0.3-1.2); Blood Urea Nitrogen 6 mg/dL (9-23); Calcium (Corrected) 8.8 mg/dL (8.5-10.1); Carbon Dioxide 28.9 mMol/L (20.0-31.0); Chloride 102 mMol/L (98-107); Creatinine (Component) 0.4 mg/dL (0.6-1.3); Estimated Creatinine Clearance 115.1 mL/min (>60); Globulin 3.2 gm/dL (2.3-3.5); Glucose 108 mg/dL (74-106); Magnesium 1.8 mg/dL (1.6-2.6); Osmolality,Calculated 274 (275-295); Phosphorous 2.5 mg/dL (2.4-5.1); Potassium 3.3 mMol/L (3.4-5.1); Sodium 138 mMol/L (136-145); Total Protein 6.2 gm/dL (5.7-8.2); eGFR > 60 See Note
[2024-08-05] MEDS: droNABinol 2.5 MG CAPSULE PO ×2 (07:44→16:51)
[2024-08-05 07:48] VITALS: BP 155/84; PULSE 91; RESP 20; TEMP 36.6; O2SAT 94
[2024-08-05 08:03] VITALS: BP 155/84; PULSE 91
[2024-08-05] MEDS: DONEPEZIL HCL 5 MG TABLET 10 MG PO (08:03)
[2024-08-05] MEDS: Lisinopril 2.5 MG TABLET 5 MG PO (08:03)
[2024-08-05] MEDS: PANTOPRAZOLE 40 MG TABLET PO (08:03)
[2024-08-05] MEDS: MEMANTINE HCL 5 MG TABLET PO (08:03)
[2024-08-05] MEDS: FERROUS SULF 325 MG TABLET PO (08:03)
[2024-08-05] MEDS: QUEtiapine FUMARATE 25 MG TABLET PO (08:03)
[2024-08-05] MEDS: SENNA TABLET 1 TAB PO (08:03)
[2024-08-05] MEDS: ENOXAPARIN SOD INJ 40 MG/0.4 ML SYRINGE SC (08:08)
[2024-08-05 09:37] LABS: Basophils # (Auto) 0.1 Thou/mm3 (0.0-0.2); Basophils % (Auto) 0 % (0-2.5); Eosinophils # (Auto) 0.1 Thou/mm3 (0.0-0.5); Eosinophils % (Auto) 1 % (0-10); Hematocrit 28.4 % (41.0-53.0); Hemoglobin 9.6 g/dL (13.5-16.0); Immature Granulocytes % (Auto) 0 % (0-0); Immature Granulocytes Auto 0.05 Thou/mm3 (0.00-0.00); Lymphocytes # (Auto) 1.1 Thou/mm3 (1.0-4.8); Lymphocytes % (Auto) 9 % (10-50); Mean Corpuscular HGB Conc 33.8 g/dl (31.0-37.0); Mean Corpuscular Hemoglobin 27.7 pg (25.0-35.0); Mean Corpuscular Volume 82 fL (80-100); Monocytes # (Auto) 1.2 Thou/mm3 (0.0-0.8); Monocytes % (Auto) 10 % (0-12); Neutrophils # (Auto) 9.5 Thou/mm3 (1.8-7.7); Neutrophils % (Auto) 79 % (37-80); Nucleated Red Blood Cell % 0 /100 WBC (0); Platelet Count 457 Thou/mm3 (140-440); RDW Standard Deviation 47.5 fL (35.1-43.9); Red Blood Count 3.46 Miln/mm3 (4.50-5.90)
--- NOTE | 2024-08-05 10:21 | PC.SS ---
SS has sent updated inquiry to Sukhwinder Browning using [employer] upon their request. Pt is new peg tube and will advance tube feedings.
--- NOTE | 2024-08-05 10:56 | CHAP ---
Patient was visited by a Spiritual Care Volunteer on 08/05/2024 between 0900 and 0930 and received comfort, encouragement and/or prayer.
[2024-08-05 12:00] VITALS: BP 142/84; PULSE 81; RESP 16; TEMP 36.7; O2SAT 94
--- NOTE | 2024-08-05 14:20 | ESDS_ITS ---
<Statement entered by Lukas Rendon MD - 08/13/24 09:24> I reviewed above note and agree with findings and plans. I have also personally examined the patient with medicine team and went over assessment and plan with medical team including exercise science internship and resident physician. Planned Discharge Date 08/05/24 DS: Providers Provider Date of admission: 07/29/24 20:00 Primary care physician: Physician No Primary/Family Admitting Provider: Chepe Major MD Attending Provider on Admission: Lukas Rendon MD Consults: 07/29/24 19:17 Consult to Orthopedic Stat Comment: Consulting Provider: Mic Cuello 07/29/24 20:02 Referral Physical Therapy Routine Comment: Physician Instructions: 07/29/24 23:13 Referral Shubham Routine Comment: Referral Registered Dietitian Routine Comment: Referral Respiratory Therapy Routine Comment: 08/02/24 13:55 Consult to Gastroenterology Routine Comment: Peg tube evaluation Consulting Provider: Everton Esqueda 08/03/24 15:06 Referral Registered Dietitian Routine Comment: successful PEG tube placement, may use PEG tube Attending Provider on DC: Karson Morales MD Discharging Provider: Karson Morales MD DS: Diagnosis Problem List Completed Was Problem List Reviewed/Reconciled?: Yes Hospital Course Hospital Course Hospital course: Mr. Goel a 74-year-old male patient with past medical history of dementia, hyperlipidemia, Spicer's esophagus, bronchiectasis, presented to the ED on 08/03/24 after having a fall. Patient at baseline is confused and oriented only to self patient was not aware of his presentation and why he was in the hospital. As per the daughter who spoke with the emergency doctor and attending physician patient was found on the floor of the bathroom when he fell down while he was unattended. Reportedly this was his third fall for the past month. There was no history of loss of consciousness or head trauma. CT of the brain was negative for any hemorrhage or mass effect, however lumbar spine CT showed acute mild compression fracture of T12. Pelvic CT scan showed acute fracture of the fifth sacral segment with angulation and mild offset. Orthopedist Dr. Cuello was consulted who recommended orthasis brase and outpatient follow-up. While in hospital patient was also found to have decreased p.o. intake and was malnourished. Patient has been having slow processed, decreased intake secondary to his dementia and Spicer's esophagus. GI Dr. Esqueda followed up on patient while in hospital. Family decided on PEG tube placement which was performed by Dr. Esqueda. Over time patient became stable and was safe to be discharged to SNF. Discharge summary was reviewed with my attending Dr. Rendon. Karson Morales, PGY-2 #Failure to thrive, s/p PEG tube placement #Toney's esophagus #Advanced Dementia #Sacral segment fracture #T12 Vertebral body acute Compression Fractures #Orthostatic hypotension #HFpEF (EF 50 to 60% with diastolic dysfunction stage I) #Moderate to severe tricuspid regurgitation #Iron deficiency anemia Status at Discharge Overall status at discharge: patient is progressing back to baseline Time Spent with Patient Time attestation: Total time spent providing and/or coordinating discharge services: Time spent: Greater than 30 minutes Exam Vital Signs Temp Pulse Resp BP Pulse Ox O2 Del Method O2 Flow Rate 98.1 F 81 16 142/84 H 94 L Room Air 2 08/05/24 12:00 08/05/24 12:08/05/24 12:08/05/24 12:08/05/24 12:08/05/24 12:08/03/24 15:25 Narrative Exam Physical Exam: Constitutional: Cachectic male that is lethargic but arousable CVS: RRR, S1 and S2 present, no murmurs, rubs or gallops . RESP: CTAB, no SOB, no rales, rhonchi or wheezing. No respiratory Distress GI: Normal BS, Nontender/Nondistended. MSK: Full range of motion, No trauma or deformities or masses. Skin: Warm to touch, Dry. No rashes or lesions. 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 Sensation grossly intact. Psych: (AAO) x 1. Able to follow commands and responds appropriately to simple questions Discharge Plan Plan Patient Disposition: Xfer Skilled Nsg Fac (SNF) Patient condition on transfer: Stable Care Plan Goals: Continue taking all your home medications as prescribed Please use compression stockings and follow orthostatic hypotension precautions when ambulating Follow-up with your PCP within 1-2 weeks Please ask your PCP to refer you to a fisher sponge hooking; momentary sinus tachycardia noted with valvular heart disease If your symptoms worsen or if you develop new chest pain, shortness of breath, dizziness or severe headache - please come back to the ED immediately. Prescriptions/Referrals Prescriptions/Med Rec: New (DME) compression socks, medium Misc See Rx Instructions .ROUTE Qty: 2 0RF Rx Instructions: As directed Continued atorvastatin 20 mg Tablet 20 mg PO QPM donepezil 10 mg tablet 20 mg PO HS Patient Comments: TAKE 2 TABLET (20 MG) BY ORAL ROUTE ONCE DAILY IN THE EVENING aspirin 81 mg Tablet,Delayed Release (Dr/Ec) 81 mg PO BID PRN (Reason: Pain) montelukast 10 mg Tablet 10 mg PO QPM memantine 5 mg tablet 5 mg PO BID diclofenac sodium 1 % gel 2 - 4 g TOPICAL BID PRN (Reason: Pain) Patient Comments: APPLY 2-4G EXTERNALLY TWICE A DAY NEEDED 30 DAYS cholecalciferol (vitamin D3) [Vitamin D3] 125 mcg (5,000 unit) Tablet 125 mcg PO QDAY Changed quetiapine 25 mg tablet 25 mg PO ONCE HS PRN (Reason: withdrawal symptoms) 30 Days Qty: 30 0RF Patient Comments: TAKE 1 TABLET (25 MG) BY ORAL ROUTE AT NIGHT NEEDED FOR AGITATION sertraline 50 mg tablet 50 mg PO QDAY 30 Days Qty: 30 0RF Patient Comments: TAKE 1 TABLET BY MOUTH EVERY DAY Discontinued cyproheptadine 4 mg tablet Patient Comments: TAKE 1 TABLET BY MOUTH FOUR TIMES A DAY FOR 30 DAYS metoprolol succinate 25 mg tablet extended release 24 hr PO Patient Comments: TAKE 1 TABLET BY MOUTH EVERY DAY FOR 90 DAYS Referrals: No Primary/Family,Physician [Primary Care Provider] - Mic Cuello MD [Physician] - Patient/Caregiver Discharge Instructions Other Discharge Diet Instructions: Osmolite 1.5 @45ml/hr x 24hrs via Gtube by pump. If no IV fluids, water flushes 25 ml/hr (or per MD). Provides: 1620 kcal, 68 g protein, 1080 ml total volume. Cardiac diet Education Materials: Back Safety: Sleeping Positions, Back Safety: Sitting, Back Safety: Standing, Orthostatic Hypotension Print Language: Kyrgyz Stand Alone Forms: [employer] Award Info., Patient Portal Info Letter Discharge Order Discharge Orders: Discharge (Routine); Ordered 08/05/24 Ordered By: Karson Morales Quality Discharge Quality Measures VTE prophylaxis
--- NOTE | 2024-08-05 14:48 | PC.SS ---
[facility] is requesting 3 bottles of formula due to not receiving next order until tomorrow. SS has informed dietitian Yolis. Formulas are at bedside. SS called Flip from [facility] who explained pt does not have transportation coverage. SS has informed and she will pay privately. SS has arranged gurney transport with [employer]. SS has provided with [employer]'s phone # to pay transport. SS confirmed with Anne Marie from [employer] is setup for 6pm to [facility] and has paid privately. Attila LARSEN is aware, is aware, bedside nursePriti is aware, Jessica from [facility] is aware.
[2024-08-05 16:00] VITALS: BP 120/72; PULSE 91; RESP 18; TEMP 36.1; O2SAT 98
[2024-08-05] MEDS: SODIUM CHLORIDE 0.9% IV (16:51)
[2024-08-05] MEDS: THIAMINE IV (16:51)
[2024-08-05] MEDS: MULTIVITAMIN IV (16:51)
--- NOTE | 2024-08-05 17:11 | PC.NURSE ---
SPOKE TO KALE BONNER AT [facility] FOR DISCHARGE INSTRUCTIONS,@ [phone]
== END 2024-08-05 17:52 | disposition skilled nursing facility (03) | DRG 552 ==
LOC: SERX 19:18 → SERHOLD 20:16 → S3NX 22:21
PROVIDERS: Physician Assistant; Specialist; Student in an Organized Health Care Education/Training Program; Admitting Provider Internal Medicine; Emergency Provider Emergency Medicine; Visit Provider Internal Medicine
PROC: 0DH63UZ Insertion of Feeding Device into Stomach, Percutaneous Approach (ICD-10-PCS; CPT 43246; principal; 2024-08-03 14:45)
DX: S22.088A Other fracture of T11-T12 vertebra, initial encounter for closed fracture (principal); S32.19XA Other fracture of sacrum, initial encounter for closed fracture; F03.911 Unspecified dementia, unspecified severity, with agitation; F03.93 Unspecified dementia, unspecified severity, with mood disturbance; I50.30 Unspecified diastolic (congestive) heart failure; I11.0 Hypertensive heart disease with heart failure; I95.1 Orthostatic hypotension; E78.5 Hyperlipidemia, unspecified; K22.70 Barrett's esophagus without dysplasia; J47.9 Bronchiectasis, uncomplicated; F03.90 Unspecified dementia, unspecified severity, without behavioral disturbance, psychotic disturbance, mood disturbance, and anxiety; R29.6 Repeated falls; R62.7 Adult failure to thrive; D45 Polycythemia vera; D69.6 Thrombocytopenia, unspecified; D50.9 Iron deficiency anemia, unspecified; D72.829 Elevated white blood cell count, unspecified; Z79.899 Other long term (current) drug therapy; Z93.1 Gastrostomy status; Z91.81 History of falling; Z79.82 Long term (current) use of aspirin; W19.XXXA Unspecified fall, initial encounter; Y92.002 Bathroom of unspecified non-institutional (private) residence as the place of occurrence of the external cause
CPT/HCPCS: 36415; 70450; 71045; 72131; 72192; 80048; 80053; 81001; 82728; 83540; 83550; 83735; 84100; 84145; 84484; 85025; 85046; 93005; 93306; 96372; 97162; 99285; A4649; J0689; J1200; J1650; J1940; J2250; J3010; J3411; J3475; J7030; Q0167; A9270

== ENCOUNTER 2024-09-08 21:57 | Inpatient (IN) | payer MEDICARE, BC, SELFPAY ==
[2024-09-08 22:07] VITALS: PULSE 114
[2024-09-08 22:12] VITALS: BP 120/73; PULSE 104; RESP 20; TEMP 37.2; O2SAT 91; BMI 15.1
--- NOTE | 2024-09-08 22:43 | EKG_ITS ---
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
--- NOTE | 2024-09-08 22:43 | XR_ITS ---
Examination: AP chest single view TECHNIQUE: AP portable upright chest single view Exam date and time: September 08, 2024 11:11 PM Comparison July 29, 2024 INDICATIONS: Sepsis protocol FINDINGS: Normal heart size Extensive bilateral parenchymal opacity which appears partly cavitary, again noted, progressed in the left upper lobe compared with July 29, 2024 Normal heart size Moderate osteopenia IMPRESSION: Extensive bilateral parenchymal disease, particularly cavitary, consistent with pneumonia Please see the CT chest report October 02, 2023 indicating extensive bilateral partly cavitary parenchymal disease with bronchiectasis
--- NOTE | 2024-09-08 22:55 | EDNOTE_ITS ---
ED GI Bleed RME/HPI General Chief complaint: GI Bleed Stated complaint: COUGHING UP BLOOD Time Seen by Provider: 09/08/24 22:29 Arrival date/time: 09/08/24 21:57 RME / HPI RME / HPI Narrative: Dr. Mcdonald?s Main ED Evaluation: 74 y/o male JUAN MANUEL from [facility] with Hx of Spicer's Esophagus and Diverticulitis presents to ED c/o coughing up bright red blood x all day . Patient was previously seen here for severe hemoptysis and was transferred to [facility] for embolization, but was instead treated without the embolization. Today, patient was brought in due to having mild hemoptysis. Patient denies any headache, chest pain, shortness of breath, dizziness or any other associated symptoms. No known allergies. Related Data Home Medications ?Medication ?Instructions ?Recorded ?Confirmed aspirin 81 mg tablet,delayed 81 mg PO BID PRN Pain 08/03/24 release atorvastatin 20 mg tablet 20 mg PO QPM 09/29/23 cholecalciferol (vitamin D3) 125 125 mcg PO QDAY 09/2808/03/24 mcg (5,000 unit) tablet (Vitamin D3) diclofenac sodium 1 % topical gel 2 - 4 g topical BID PRN Pain 09/29/23 08/03/24 donepezil 10 mg tablet 20 mg PO HS 09/29/23 5 memantine 5 mg tablet 5 mg PO BID 09/29/23 5 montelukast 10 mg tablet 10 mg PO QPM 09/29/23 Previous Rx's ?Medication ?Instructions ?Recorded compression socks, medium #2 ea 07/31/24 quetiapine 25 mg tablet 25 mg PO ONCE HS PRN withdra wal 07/31/24 symptoms 1 month #30 tabs sertraline 50 mg tablet 50 mg PO QDAY 1 month #30 ta bs 07/31/24 Allergies Allergy/AdvReac Type Severity Reaction Status Date / Time No Known Allergies Allergy Verified 09/20/23 14:03 Review of Systems Review of Systems Systems Reviewed: All systems reviewed, normal except as documented Past Medical History Past Medical History NEUROLOGIC: Positive Dementia CARDIAC: Positive Cardiac Disorders, Hypercholesterolemia, Hypertension (not on medication anymore) and Hypotension RESPIRATORY: Positive Chronic Obstructive Pulmonary Disease (COPD) and Asthma GASTROINTESTINAL: Positive Spicer's Esophagus and Diverticulitis ED Exam Narrative Physical exam: GENERAL APPEARANCE: alert and oriented x 4, well-developed, well-nourished, no acute distress VITALS: All vitals were reviewed and are normal according to my interpretation. HEENT: Normocephalic, atraumatic; pupils equal, round, reactive to light; EOMI; mucous membranes pink, moist; oropharynx clear NECK: Supple LUNGS: Mild coarse breath sounds BL; RR is 20 HEART: Tachycardic rate to the 100s, regular rhythm; normal S1, S2; no murmurs ABDOMEN: non distended; normal BS; soft, no tenderness, no guarding, no rebound; no masses, no organomegaly, no hernia BACK: no CVA tenderness EXTREMITIES: atraumatic; no edema NEUROLOGIC: awake; alert and oriented x4; cranial nerves II-XII grossly intact; no focal sensory or motor deficits PSYCHIATRIC: appropriate mood and affect SKIN: warm, dry, normal color; no rashes Course Course Course Narrative: CXR is ordered for determining the etiology of hemoptysis. Quality Measures Possible source: pulmonary Blood cultures ordered: yes Antibiotic ordered: Yes Pertinent labs: 09/08/24 09/08/24 22:22 23:01 Lactic Acid 1.3 mMol/L (0.4-2.0) Procalcitonin 0.11 ng/ml (0.0-0.49) sepsis Orders Category Date Time Status Bedside Blood Glucose NOW Care 09/08/24 22:[address] Screening NOW Care 09/09/24 01:12 Completed Signal Wirer now Care 09/08/24 22:44 Completed Continuous Pulse Oximetry NOW Care 09/08/24 22:44 Completed Insert IV NOW Care 09/08/24 22:43 Completed Strict Intake and Output Routine Care 09/08/24 22:[address] angio chest Stat Exams 09/09/24 01:12 Completed XR chest 1V SEPSIS PROTOCOL Stat Exams 09/08/24 22:43 Completed Blood Culture (Lab) Stat Lab 09/08/24 23:01 Results CBC Stat Lab 09/08/24 22:22 Completed Comprehensive Metabolic Panel Stat Lab 09/08/24 22:22 Completed Lactate (Lactic Acid) Stat Lab 09/08/24 23:01 Completed Partial Thromboplastin Time Stat Lab 09/08/24 22:22 Completed Procalcitonin Stat Lab 09/08/24 22:22 Completed Prothrombin Time with INR Stat Lab 09/08/24 22:22 Completed Troponin I Stat Lab 09/08/24 22:22 Completed Type and Screen Stat Lab 09/08/24 23:35 Completed Urinalysis Stat Lab 09/09/24 08:00 Completed Urine Culture Stat Lab 09/09/24 07:56 Received Sodium Chloride 0.9% 1000 ml [Ns] 1,000 ml Med 09/09/24 03:17 Discontinued IV 999 mls/hr Sodium Chloride 0.9% 500 ml [Ns] 500 ml Med 09/08/24 23:31 Discontinued IV 999 mls/hr cefTRIAXone/D5w 1gm IV premix [Rocephin/D5w 1gm IV Med 09/08/24 23:31 Discontinued premix] 1 gm in 50 ml IV X1 EKG (RT) Stat RT 09/08/24 22:43 Draft Vital Signs Vital signs: Vital Signs Temperature 98.9 F 09/08/24 22:12 Pulse Rate 104 H 09/08/24 22:12 Respiratory Rate 20 09/08/24 22:12 Blood Pressure 120/73 09/08/24 22:12 Pulse Oximetry (%) 91 L 09/08/24 22:12 Oxygen Delivery Method Room Air 09/08/24 22:12 GI Bleed MDM Narrative MDM Narrative:: Scribe Attestation: ICristin am scribing for and in the presence of Dr. Mcdonald. Provider Notation: Although this document has been carefully reviewed, there may still be some phonetic and other typographical errors. These errors are purely grammatical due to imperfections in the software program and should not be construed in any way to compromise the substance of the patient's medical care during this visit. 2249: Sepsis alert initiated. Orders made at this time are congruent with ED Adult Sepsis Order List. Re-evaluation is to be completed. 0001: NS IVF infused. 0031: Sepsis reassessment performed consisting of lab review, vitals, physical exam including auscultation of heart, lungs, and visual evaluation of capillary refills, mucosal membranes and extremities. 0130: I called Dr. Major, the hospitalist for admission. He assessed the patient and is refusing admission, as he feels the patient needs to be transferred for embolization. I disagree and I'm unable to transfer this patient, as he does not have any EMTALA reason for transfer. Plan to transfer care of the patient to the oncoming provider in the morning pending admission or transfer. Patient data External records reviewed:: [facility] previous records, EMS form and [facility] records Clinical information provided by:: patient and EMS Social determinants that could affect healthcare access:: housing (longterm) Patient has the following chronic illnesses:: Dementia, Hypercholesterolemia, Hypertension, Hypotension, COPD, Asthma, Spicer's Esophagus and Diverticulitis How is presenting disease/condition affected by chronic disease/condition?: exacerbated by Evaluation data The following diagnostics were reviewed and interpreted by me:: lab results, radiology exam(s) and EKG tracing(s) (EKG at 22:54 shows normal sinus rhythm at 99, right axis deviation, no ectopy, no signs of acute ischemia.) Lab and/or radiology exams considered but not ordered:: None Interpretation Summary: LABS Hematology: WBC 20, RBC 4.31, Hgb 11.8, Hct 33.9%, MCV 79, Plt 711, Lymphocyte 8%. Coagulation: PT 13.8, APTT 40.6. Chemistry: Sodium 126, Chloride 90, Anion Gap 6, Creatinine 0.5, BUN/Creatinine 32, Osmality 254, AST 77, ALT 93, Alkaline Phosphates 185, Globulin 4, Albumin/Globulin 0.9. RADIOLOGY Chest X-Ray: Patient: GARFIELD HUYNH [facility]. Record#: [id number] Birthdate: 1950 Age/Sex: 74 / M Location: [facility] Attending Dr: Ordering Physician: Eduin Mcdonald MD Date of Service: 09/08/24 Procedure(s): XR chest 1V SEPSIS PROTOCOL Accession Number(s): [id number] cc: Cari Irwin MD; Pantera Estevez MD; Eduin Mcdonald MD~ Examination: AP chest single view TECHNIQUE: AP portable upright chest single view Exam date and time: September 08, 2024 11:11 PM Comparison July 29, 2024 INDICATIONS: Sepsis protocol FINDINGS: Normal heart size Extensive bilateral parenchymal opacity which appears partly cavitary, again noted, progressed in the left upper lobe compared with July 29, 2024 Normal heart size Moderate osteopenia IMPRESSION: Extensive bilateral parenchymal disease, particularly cavitary, consistent with pneumonia Please see the CT chest report October 02, 2023 indicating extensive bilateral partly cavitary parenchymal disease with bronchiectasis Dictated By: Pantera Estevez MD Signed By: <Electronically signed by Pantera Estevez MD in OV>09/08/24 2357 Chest CTA: Telerad Preliminary Report Draft Patient: GARFIELD HUYNH [facility]. Record#: [id number] Birthdate: 1950 Age/Sex: 74 / M [facility] Attending Dr: Ordering Physician: Date of Service: Procedure(s): Accession Number(s): cc: ~ CT angiogram of the chest with intravenous contrast (axial sections with sagittal and coronal reformats) September 09, 2024 at 0128 hours Clinical History: Hemoptysis, leukocytosis. Technique:Helical axial sections with sagittal and coronal reformats of the chest were obtained with intravenous contrast. Iterative reconstruction technique was employed to reduce patient radiation exposure. 3D/MIP reconstructed images were also provided. Comparison: No prior study is available for comparison. Findings: There is no filling defect within the pulmonary artery divisions to suggest pulmonary thromboembolism. The mediastinum demonstrates no evidence of mass or lymphadenopathy. The thoracic aorta is unremarkable. There is no pericardial effusion. Consolidation in bilateral upper and lower lobes and in the right middle lobe. Bilateral cavitated lesions in the lungs, the largest in the right upper lobe measures 3.8 cm. No evidence of pleural effusion or pneumothorax. Acute compression fracture of the superior endplate of T12. The visualized upper abdominal viscera are unremarkable. Impression: No CT evidence of pulmonary thromboembolism. Multifocal pneumonia. Bilateral cavitated lung lesions, consider metastasis, primary lung cancer, and tuberculosis in the differential diagnosis. Acute compression fracture of the superior endplate of T12.Correlation with CT of the thoracolumbar spine is recommended. Discussion Details: Results verbally communicated to : Dr. Bullock at 02:59 AM 09/09/2024 Report Electronically Signed By: Wilmer May 09/09/2024 3:08:20 AM [EST] Medications / Prescriptions Medications or Prescriptions considered but not ordered:: None Medication administrations:: Medication Administration History Acetaminophen (Acetaminophen 325 Mg Tablet) 650 mg PO Q6H PRN PRN Reason: PAIN OR FEVER > 100.4 Stop: 10/09/24 10:59 Last Admin: 09/10/24 20:59 Dose: 650 mg Documented By: Admin: 09/09/24 20:17 Dose: 650 mg Documented By: JEFFERY Donepezil HCl (Donepezil Hcl 5 Mg Tablet) 20 mg PO HS HOMAR Stop: 10/09/24 20:59 Last Admin: 09/10/24 20:59 Dose: 20 mg Documented By: Admin: 09/09/24 20:18 Dose: 20 mg Documented By: JEFFERY Cefepime HCl 2 gm/ Sodium (Chloride) 50 mls @ 100 mls/hr IV Q8HR HOMAR Stop: 09/16/24 13:59 Last Admin: 09/10/24 21:04 Dose: 100 mls/hr Documented By: Infusion: 09/10/24 13:45 Dose: Infused Documented By: Admin: 09/10/24 13:15 Dose: 100 mls/hr Documented By: Infusion: 09/10/24 06:27 Dose: Infused Documented By: Admin: 09/10/24 05:57 Dose: 100 mls/hr Documented By: Infusion: 09/10/24 00:23 Dose: Infused Documented By: Admin: 09/09/24 23:53 Dose: 100 mls/hr Documented By: Infusion: 09/09/24 16:34 Dose: Infused Documented By: Admin: 09/09/24 15:26 Dose: 100 mls/hr Documented By: DEDRA Azithromycin 500 mg/ Sodium (Chloride) 250 mls @ 250 mls/hr IV QDAY HOMAR Stop: 09/16/24 13:42 Last Admin: 09/10/24 08:40 Dose: 250 mls/hr Documented By: KIESHA Comments: unable to scan medication Infusion: 09/09/24 18:18 Dose: Infused Documented By: Admin: 09/09/24 16:30 Dose: 250 mls/hr Documented By: LIUNS Ondansetron HCl (Ondansetron Inj 2 Mg/Ml Inj 2 Ml) 4 mg IV Q6H PRN; Protocol PRN Reason: NAUSEA OR VOMITING Stop: 10/09/24 10:59 Pantoprazole Sodium (Pantoprazole Inj 40 Mg Vial) 40 mg IVP QDAY HOMAR Stop: 10/10/24 08:59 Last Admin: 09/10/24 08:18 Dose: 40 mg Documented By: KIESHA Quetiapine Fumarate (Quetiapine Fumarate 25 Mg Tablet) 25 mg PO HS PRN PRN Reason: AGITATION Stop: 10/09/24 20:59 Sertraline HCl (Sertraline Hcl 25 Mg Tablet) 50 mg PO HS HOMAR Stop: 10/09/24 20:59 Last Admin: 09/10/24 21:00 Dose: 50 mg Documented By: Admin: 09/09/24 20:18 Dose: 50 mg Documented By: JEFFERY Discontinued Medications Albuterol (Albuterol Rt 2.5 Mg/3 Ml Nebu) 5 mg INH X1 ONE Stop: 09/09/24 11:01 Last Admin: 09/09/24 11:58 Dose: 5 mg Documented By: NABOR Ceftriaxone Sodium/Dextrose (Rocephin/D5w 1gm Iv Premix) 1 gm in 50 mls @ 100 mls/hr IV X1 ONE Stop: 09/09/24 00:00 Last Infusion: 09/09/24 00:29 Dose: Infused Documented By: Admin: 09/08/24 23:43 Dose: 100 mls/hr Documented By: EF Sodium Chloride (Ns) 500 mls @ 999 mls/hr IV .Q31M ONE Stop: 09/09/24 00:01 Last Infusion: 09/09/24 00:29 Dose: Infused Documented By: Admin: 09/08/24 23:43 Dose: 999 mls/hr Documented By: EF Sodium Chloride (Ns) 1,000 mls @ 999 mls/hr IV .Q1H1M ONE Stop: 09/09/24 04:17 Last Infusion: 09/09/24 04:35 Dose: Infused Documented By: Admin: 09/09/24 03:34 Dose: 999 mls/hr Documented By: EF Sodium Chloride (Ns) 1,000 mls @ 75 mls/hr IV .[id number] ONE Stop: 09/10/24 00:20 Last Admin: 09/09/24 12:25 Dose: 75 mls/hr Documented By: VG Sodium Chloride (Sodium Chloride Rt 10% 15 Ml Nebu) 5 ml INH X1 ONE Stop: 09/09/24 11:01 Last Admin: 09/09/24 12:15 Dose: Not Given Documented By: MW Non-Admin Reason: Other, see note Comments: not needed for sputum See above if any. Consultations Consultation(s) initiated? (list below): No Diagnosis GI bleed differential diagnosis: esophageal varices, gastritis, Upper gastrointestinal hemorrhage and hematochezia Most likely diagnosis given after review of the tests above:: See clinical impression below. Admission Indicated Admission indicated?: not indicated (Pending evaluation by Dr. Miguel for possible transfer.) Admission Request Was there a request for admission?: No Disposition Plan Disposition Plan: other (specify) (Signed out to Dr. Aguirre at 0600 pending admission vs. transfer.) Critical Care Time Critical Care Time Critical Care Time: Yes Total Critical Care Time (min.): 40 Attestation: The high probability of sudden, clinically significant deterioration in the patient?s condition required the highest level of my preparedness to intervene urgently. The services I provided to this patient were to treat and/or prevent clinically significant deterioration. Services included the following: chart data review, reviewing nursing notes and/or old charts, documentation time, advisor consultant collaboration regarding findings and treatment options, medication orders and management, direct patient care, vital sign assessments and ordering, interpreting and reviewing diagnostic studies and lab tests. Aggregate critical care time includes only time during which I was engaged in work directly related to the patient?s care, as described above, whether at bedside or elsewhere in the Emergency Department. It did not include time spent performing other reported procedures or the services of residents, students, nurses or physician assistants. Discharge Plan Plan Patient Disposition: Admit Acute Care w/in Hospital Patient condition on transfer: Stable Problem List Clinical Impression: Hemoptysis, Bronchiectasis, Pneumonia
[2024-09-08 23:09] LABS: Lactate (Lactic Acid) 1.3 mMol/L (0.4-2.0)
[2024-09-08 23:17] LABS: Basophils # (Auto) 0.1 Thou/mm3 (0.0-0.2); Basophils % (Auto) 1 % (0-2.5); Eosinophils # (Auto) 0.1 Thou/mm3 (0.0-0.5); Eosinophils % (Auto) 0 % (0-10); Hematocrit 33.9 % (41.0-53.0); Hemoglobin 11.8 g/dL (13.5-16.0); Immature Granulocytes % (Auto) 1 % (0-0); Immature Granulocytes Auto 0.14 Thou/mm3 (0.00-0.00); Lymphocytes # (Auto) 1.6 Thou/mm3 (1.0-4.8); Lymphocytes % (Auto) 8 % (10-50); Mean Corpuscular HGB Conc 34.8 g/dl (31.0-37.0); Mean Corpuscular Hemoglobin 27.4 pg (25.0-35.0); Mean Corpuscular Volume 79 fL (80-100); Monocytes # (Auto) 2.1 Thou/mm3 (0.0-0.8); Monocytes % (Auto) 10 % (0-12); Neutrophils % (Auto) 80 % (37-80); Nucleated Red Blood Cell % 0 /100 WBC (0); Platelet Count 711 Thou/mm3 (140-440); Red Blood Count 4.31 Miln/mm3 (4.50-5.90)
[2024-09-08 23:20] VITALS: PULSE 101
[2024-09-08 23:38] LABS: Alanine Aminotransferase 93 U/L (10-49); Albumin, Serum 3.5 gm/dL (3.4-4.8); Albumin/Globulin Ratio 0.9 (1.2-2.2); Alkaline Phosphatase 185 U/L (46-116); Anion Gap 6 (7-16); Aspartate Amino Transferase 77 U/L (0-34); BUN/Creatinine Ratio 32 Ratio (12-20); Bilirubin,Total 0.3 mg/dL (0.3-1.2); Blood Urea Nitrogen 16 mg/dL (9-23); Calcium 8.6 mg/dL (8.3-10.6); Carbon Dioxide 30.5 mMol/L (20.0-31.0); Chloride 90 mMol/L (98-107); Creatinine (Component) 0.5 mg/dL (0.6-1.3); Estimated Creatinine Clearance 84.1 mL/min (>60); Glucose 95 mg/dL (74-106); Osmolality,Calculated 254 (275-295); Procalcitonin 0.11 ng/ml (0.0-0.49); Sodium 126 mMol/L (136-145); Total Protein 7.5 gm/dL (5.7-8.2); Troponin I < 0.020 ng/mL (0.0-0.045); eGFR > 60 See Note
[2024-09-08] MEDS: cefTRIAXone/D5w 1gm IV premix 1 GM/50 ML BAG IV (23:43)
[2024-09-08] MEDS: SODIUM CHLORIDE 0.9% 500 ML 500 ML 999 ML IV (23:43)
[2024-09-09] VITALS (8 sets, daily range): BP systolic 102–130; BP diastolic 62–78; PULSE 72–100; RESP 17–100; TEMP 36.3–37.2; O2SAT 91–99; BMI 15.2
[2024-09-09 00:18] LABS: INR 1.3 (0.9-1.3); Partial Thromboplastin Time 40.6 Seconds (22.0-36.0); Prothrombin Time 13.8 Seconds (9.0-12.2)
--- NOTE | 2024-09-09 01:12 | XR_ITS ---
Examination: CTA chest with intravenous contrast 2-D reconstructions 3-D reconstructions, vascular Date and time of exam: September 09, 2024 at 0128 hours Comparison October 02, 2023 INDICATIONS: Chest pain shortness of breath hemoptysis coughing today CTDI: vol (mGy) 8.1 DLP: (mGycm) 313 Technique: Multiple axial sections of the thorax have been obtained. 3 mm slice thickness, from below the hemidiaphragms to above the apices of the lungs. Mediastinal and lung density settings have been obtained. 2-D sagittal and coronal reconstructions. 3-D angiographic renderings, 3-D volume renderings, 3D post processing, vascular maximum intensity projections obtained. Contrast administered is 100 cc Isovue 370 intravenous. Low dose protocols were performed. One or more of the following dose reduction techniques were used; automated exposure control, adjustment of the mA and/or KV according to patient size, use of iterative reconstruction technique. Findings: No thoracic aortic aneurysm dilatation or dissection No pulmonary artery filling defects Again noted extensive cavitary bilateral parenchymal disease with prominent bronchiectasis No visualized liver or splenic lesion No hydronephrosis Acute appearing compression fracture T12 vertebral body, depression superior endplate, reduction in height 20% IMPRESSION: Again noted extensive cavitary parenchymal disease throughout both lungs with bronchiectasis, active pneumonic infiltrate included in the differential Acute appearing compression fracture T12 vertebral body with satisfactory alignment
--- NOTE | 2024-09-09 03:08 | PRELIM_ITS ---
CT angiogram of the chest with intravenous contrast (axial sections with sagittal and coronal reformats) September 09, 2024 at 0128 hours Clinical History: Hemoptysis, leukocytosis. Technique:Helical axial sections with sagittal and coronal reformats of the chest were obtained with intravenous contrast. Iterative reconstruction technique was employed to reduce patient radiation exposure. 3D/MIP reconstructed images were also provided. Comparison: No prior study is available for comparison. Findings: There is no filling defect within the pulmonary artery divisions to suggest pulmonary thromboembolism. The mediastinum demonstrates no evidence of mass or lymphadenopathy. The thoracic aorta is unremarkable. There is no pericardial effusion. Consolidation in bilateral upper and lower lobes and in the right middle lobe. Bilateral cavitated lesions in the lungs, the largest in the right upper lobe measures 3.8 cm. No evidence of pleural effusion or pneumothorax. Acute compression fracture of the superior endplate of T12. The visualized upper abdominal viscera are unremarkable. Impression: No CT evidence of pulmonary thromboembolism. Multifocal pneumonia. Bilateral cavitated lung lesions, consider metastasis, primary lung cancer, and tuberculosis in the differential diagnosis. Acute compression fracture of the superior endplate of T12.Correlation with CT of the thoracolumbar spine is recommended. Discussion Details: Results verbally communicated to : Dr. Bullock at 02:59 AM 09/09/2024 Report Electronically Signed By: Wilmer May 09/09/2024 3:08:20 AM [EST]
[2024-09-09] MEDS: SODIUM CHLORIDE 0.9% 1000 ML 1,000 ML 999 ML IV (03:34)
--- NOTE | 2024-09-09 06:22 | EDNOTE_ITS ---
Emergency Room Addendum <Aurelia Perez - Last Filed: 09/09/24 08:42> Addendum Narrative: 0600: Care assumed from Dr. Mcdonald, the previous shift emergency physician. Past medical, surgical, social and family history reviewed. Vitals and home medications reviewed. I will assume the care of the patient at this time, pending remainder of labs and final disposition. Please refer to the emergency department record for history and examination from initial visit.? Physical exam by me shows patient under no acute distress at this time. Patient has hemoptysis secondary to bronchitis and/or pneumonia. Will give antibiotics, steroids, neb treatment, and then admit. I spoke with the ICU doctor, he reviewed the CAT scan and said that the patient can go to the floor Patient be admitted with a diagnosis of pneumonia, bronchiectasis, hemoptysis. 0830: Discussed test HPI, PMHx, lab, radiology results and/or management with hospitalist. Will admit for further evaluation and management. Accepts patient for admission. <Zeke Herr MD - Last Filed: 09/09/24 09:27> Addendum Narrative: 0600: Care assumed from Dr. Mcdonald, the previous shift emergency physician. Past medical, surgical, social and family history reviewed. Vitals and home medications reviewed. I will assume the care of the patient at this time, pending remainder of labs and final disposition. Please refer to the emergency department record for history and examination from initial visit.? Physical exam by me shows patient under no acute distress at this time. Patient has hemoptysis secondary to bronchitis and/or pneumonia. Will give antibiotics, steroids, neb treatment, and then admit. I spoke with the ICU doctor, he reviewed the CAT scan and said that the patient can go to the floor Patient be admitted with a diagnosis of pneumonia, bronchiectasis, hemoptysis. 0830: Discussed test HPI, PMHx, lab, radiology results and/or management with hospitalist. Will admit for further evaluation and management. Accepts patient for admission. I spoke with the hospitalist and patient will be admitted with the following diagnoses Pneumonia Bronchiectasis Hemoptysis Previously I spoke with the ICU inker and opaquer and he reviewed the x-ray and recommended admitting the patient to the medical surgical floor There is no evidence of a source of bleed that needs to be embolized The bleeding is secondary to bronchiectasis
--- NOTE | 2024-09-09 08:00 | PC.NURSE ---
in to assess pt. pt resting quietly at this time without any complaints. v/s assessed and stable. orders received and initiated, call light is within reach. at bedside. plan of care ongoing.
[2024-09-09 08:01] LABS: Collection Type, Urine Clean Catch; RBC,Urine 0 /hpf (0-3); Squamous Epithelial Cell,Urine 0 /hpf (0-5); WBC,Urine 0 /hpf (0-5)
[2024-09-09 08:52] LABS: Bacteria,Urine Rare; Bilirubin,Urine Negative (Negative); Blood,Urine Negative (Negative); Clarity,Urine Clear (Clear/Hazy); Color,Urine Lt-Yellow (Lt Yel-Yel); Glucose, Urine Negative (Negative); Ketones,Urine Negative (Negative); Leukocyte Esterase,Urine Negative (Negative); Nitrite,Urine Negative (Negative); PH,Urine 6.5 (5.0-7.0); Protein,Urine Negative (Neg - Trace); Specific Gravity,Urine 1.038 (1.001-1.035); Urobilinogen,Urine Negative mg/dL (0.0-1.0)
--- NOTE | 2024-09-09 11:35 | PC.NURSE ---
RT CALLED AND NOTIFIED OF ORDERED BREATHING TREATMENT.
[2024-09-09] MEDS: ALBUTEROL RT 2.5 MG/3 ML NEBU 5 MG INH (11:58)
[2024-09-09] MEDS: SODIUM CHLORIDE 0.9% 1000 ML 1,000 ML 75 ML IV (12:25)
--- NOTE | 2024-09-09 13:06 | ESHP_ITS ---
Documentation for date of: 09/09/24 HPI History of Present Illness History of present illness: Mainor Goel is a 74-year-old male with a past history of dementia, bronchiectasis ? secondary to coccidiomycosis in ~2020, adult failure to thrive status post PEG tube placement hypertension, HFpEF (EF 50 to 60% on 08/01/2024), Spicer's esophagus, history T12 vertebral body fracture status post ground- level fall now at [facility] since 08/2024 who presented on 09/08 for hemoptysis x 1 day. Patient has baseline dementia and history was obtained from nursing facility over telephone. Staff there states that patient started having episodes of hemoptysis in the morning on 09/08 without any preceding symptoms, including fever, chills, cough, sore throat, and is not on supplemental oxygen. He was able to fill 1 cup of blood and decided to monitor but continued to have episodes of hemoptysis and so he was brought to the ED. Of note, patient was admitted approximately 1 year ago for similar symptoms for which woodworking machine feeder/chucking and boring machine operator was consulted. Again spoke to woodworking machine feeder/chucking and boring machine operator on this admission and given that patient does not have a history of cystic fibrosis, acceptable to treat with single coverage for Pseudomonas and at this time given that hemoglobin is stable no indication for inhaled tranexamic acid. In the ED, vitals significant for tachycardia with HR 104, afebrile, saturating 91% on RA. CBC showed leukocytosis of 20, hemoglobin of 11.8, platelet 711. CHEM panel showed sodium of 126, K 5.0, chloride 90, lactic acid 1.3, AST 77, ALT 93, ALP 185, Pro-Brady normal. UA negative. CTA chest showed extensive cavitary parenchymal disease throughout both lungs, consistent with bronchiectasis. PMHx: advanced dementia, bronchiectasis, adult failure to thrive, HFpEF, hyperlipidemia, and Spicer's esophagus SH: no alcohol, cigarettes, or illicit drug use; comes from [facility] s/p fall one month ago but used to live with at home who was primary manager analysis and decision maker Allergies: NKA. Medications: Aspirin, atorvastatin, vitamin D, diclofenac, donepezil, famotidine, memantine, montelukast. Review of Systems Review of Systems Systems Reviewed: All systems reviewed, normal except as documented Exam Vital Signs Temp Pulse Resp BP Pulse Ox O2 Del Method O2 Flow Rate 97.6 F 76 20 119/78 99 Nasal Cannula 2 09/09/24 08:00 09/09/24 11:58 09/09/24 11:58 09/09/24 08:00 09/09/24 11:58 09/09/24 08:00 09/09/24 11:58 Narrative Exam General: alert, in no acute distress, able to speak full sentences, hard of hearing HEENT: dry blood around oral mucosa, NC/AT, mucous membranes moist, bilateral sclera anicteric Cardiovascular: regular rate and rhythm, S1/S2 present, no murmurs appreciated Pulmonary: clear to auscultation bilaterally, no rales/rhonchi/wheezes Abdominal: soft, non-tender, non-distended, no rebound/guarding, normal bowel sounds present Musculoskeletal: normal ROM, no peripheral edema Skin: warm and dry, intact, no rashes Results: Labs 09/08/24 22:22 09/08/24 22:22 Labs: Short CBC 09/08/24 Range/Units 22:22 WBC 20.0 H (3.8-10.6) Thou/mm3 Hgb 11.8 L (13.5-16.0) g/dL Hct 33.9 L (41.0-53.0) % Plt Count 711 H D (140-440) Thou/mm3 BMP 09/08/24 22:22 Sodium 126 L Potassium 5.0 Chloride 90 L Carbon Dioxide 30.5 BUN 16 Creatinine 0.5 L Glucose 95 Calcium 8.6 Cardiac Enzymes 09/08/24 Range/Units 22:22 Troponin I < 0.020 (0.0-0.045) ng/mL Liver Function 09/08/24 Range/Units 22:22 Total Bilirubin 0.3 (0.3-1.2) mg/dL AST 77 H (0-34) U/L ALT 93 H (10-49) U/L Alkaline Phosphatase 185 H (46-116) U/L Albumin 3.5 (3.4-4.8) gm/dL Urine 09/09/24 Range/Units 08:00 Urine Color Lt-Yellow (Lt Yel-Yel) Urine Clarity Clear (Clear/Hazy) Urine pH 6.5 (5.0-7.0) Ur Specific [place] 1.038 H (1.001-1.035) Urine Protein Negative (Neg - Trace) Urine Glucose (UA) Negative (Negative) Quality Measures Quality Measures sepsis Current suspected stage: ruled out Possible source: pulmonary Blood cultures ordered: yes Antibiotic ordered: Yes Advance care planning discussed with:: patient and child Medications Home Medications and Allergies Home Medications ?Medication ?Instructions ?Recorded ?Confirmed ?Type aspirin 81 mg tablet,delayed 81 mg PO BID PRN Pain 08/03/24 History release atorvastatin 20 mg tablet 20 mg PO QPM 09/29/23 History cholecalciferol (vitamin D3) 125 125 mcg PO QDAY 09/2808/03/24 History mcg (5,000 unit) tablet (Vitamin D3) diclofenac sodium 1 % topical gel 2 - 4 g topical BID PRN Pain 09/29/23 08/03/24 History donepezil 10 mg tablet 20 mg PO HS 09/29/23 5 History memantine 5 mg tablet 5 mg PO BID 09/29/23 5 History montelukast 10 mg tablet 10 mg PO QPM 09/29/23 History Allergies Allergy/AdvReac Type Severity Reaction Status Date / Time No Known Allergies Allergy Verified 09/20/23 14:03 Visit Medications Acetaminophen (Acetaminophen 325 Mg Tablet) 650 mg PO Q6H PRN PRN Reason: PAIN OR FEVER > 100.4 Stop: 10/09/24 10:59 Sodium Chloride (Ns) 1,000 mls @ 75 mls/hr IV .[id number] ONE Stop: 09/10/24 00:20 Last Admin: 09/09/24 12:25 Dose: 75 mls/hr Cefepime HCl 2 gm/ Sodium (Chloride) 50 mls @ 100 mls/hr IV Q8HR HOMAR Stop: 09/16/24 13:59 Ondansetron HCl (Ondansetron Inj 2 Mg/Ml Inj 2 Ml) 4 mg IV Q6H PRN; Protocol PRN Reason: NAUSEA OR VOMITING Stop: 10/09/24 10:59 Pantoprazole Sodium (Pantoprazole Inj 40 Mg Vial) 40 mg IVP QDAY [facility] Stop: 10/10/24 08:59 Discontinued Medications Albuterol (Albuterol Rt 2.5 Mg/3 Ml Nebu) 5 mg INH X1 ONE Stop: 09/09/24 11:01 Last Admin: 09/09/24 11:58 Dose: 5 mg Ceftriaxone Sodium/Dextrose (Rocephin/D5w 1gm Iv Premix) 1 gm in 50 mls @ 100 mls/hr IV X1 ONE Stop: 09/09/24 00:00 Last Infusion: 09/09/24 00:29 Dose: Infused Sodium Chloride (Ns) 500 mls @ 999 mls/hr IV .Q31M ONE Stop: 09/09/24 00:01 Last Infusion: 09/09/24 00:29 Dose: Infused Sodium Chloride (Ns) 1,000 mls @ 999 mls/hr IV .Q1H1M ONE Stop: 09/09/24 04:17 Last Infusion: 09/09/24 04:35 Dose: Infused Sodium Chloride (Sodium Chloride Rt 10% 15 Ml Nebu) 5 ml INH X1 ONE Stop: 09/09/24 11:01 Last Admin: 09/09/24 12:15 Dose: Not Given Assessment & Plan Plan Mainor Goel is a 74-year-old male with a past history of dementia, bronchiectasis ? secondary to coccidiomycosis in ~2020, adult failure to thrive status post PEG tube placement hypertension, HFpEF (EF 50 to 60% on 08/01/2024), Spicer's esophagus, history T12 vertebral body fracture status post ground- level fall now at [facility] since 08/2024 who presented on 09/08 for hemoptysis x 1 day. Admitted for management of bronchiectasis exacerbation/hemoptysis. #History of bronchiectasis secondary to coccidiomycosis ~2020 #Hemoptysis Presented on 09/08 from [facility] for hemoptysis x 1 day. Staff there states that patient started having episodes of hemoptysis in the morning on 09/08 without any preceding symptoms, including fever, chills, cough, sore throat, and is not on supplemental oxygen. Filled 1 cup of blood so he was brought to the ED. Of note, admitted approximately 1 year ago for similar symptoms for which woodworking machine feeder/chucking and boring machine operator was consulted. Again spoke to woodworking machine feeder/chucking and boring machine operator on this admission and given that patient does not have a history of cystic fibrosis, acceptable to treat with single coverage for Pseudomonas and at this time given that hemoglobin is stable no indication for inhaled tranexamic acid. Previously worked up for Aspergillus, TB, Cocci, and Legionella in 2023 all of which were negative. ? Cefepime for pseudomonal coverage (09/09-) x2 weeks ? Azithromycin for atypical coverage (09/09-) x2 weeks ? PICC line ordered ? Obtain sputum cultures ? Monitor hemoglobin ? Allow coughing to clear airways #Failure to thrive, s/p PEG tube placement #Toney's esophagus During previous admission PEG tube placed due to decreased PO intake and failure to thrive. ? Referral to registered nurse first assistant ? Osmolite 1.5 at 20 mL/h via PEG tube pump, advance 10 mL every 12 hours to goal of 45 mL/h for 24 hours; water flushes 25 mL/h. #Hypertension #HFpEF (EF 50 to 60% with stage I diastolic dysfunction) and moderate to severe TR Echo 08/01: LV appears normal with EF 55-60%. Stage I diastolic dysfunction. RV appears normal with elevated RVSP 45 mmHg. LA mildly dilated. Mild-mod MR & MAC. Moderate & mild AI. Mod-Severe TR. Patient is on metoprolol succinate (home medication), will continue as the patient's been having episodes of sinus tachycardia Added lisinopril 5 mg p.o. daily as the patient has some degree of valvular heart disease, will increase as tolerated Monitor BP during hospitalization; adjust therapy if clinically indicated. ? Blood pressure within range, follow-up med rec #T12 vertebral body compression fractures Mechanical fall in elderly patient with advanced dementia. CTA chest shwoed acute-appearing compression fracture T12 vertebral body, depression superior endplate, reduction in height 20%. Noted to occur from previous admission. ? PT as tolerated ? Pain management ? Fall precautions #Dementia Follows Dr. Malhotra outpatient and is on donepezil 20 mg p.o. at bedtime, memantine 5 mg p.o. twice daily, quetiapine 25 mg PO PRN HS, and sertraline 50 mg PO daily. ? Continue home medications Hospital management: Disposition: on IV antibiotics, pending PICC line insertion Fluids: not indicated Diet: Osmolite 1.5 at 20 mL/h via PEG tube pump. Advance 10 mL every 12 hours to goal of 45 mL/h for 24 hours. Water flushes 25 mL/h. Lines: PIV DVT prophylaxis: SCDs GI prophylaxis: pantoprazole 40 mg IV daily CODE STATUS: DNR ----- Plan discussed with attending physician Dr. Tobin Boland MD PGY-1 Internal Medicine Attending Provider Attestation/Addendum I reviewed labs, imaging, EKG, home medications and prior available records. Face to face evaluation was performed by me. I have personally examined the patient and discussed assessment and plan with the IM team. I reviewed the resident note and agree with the plan with exceptions as below. Hemoptysis Acute exacerbation of bronchiectasis Possible superimposed pneumonia, bilateral mainly in lower lobes Leukocytosis Hyponatremia Transaminitis T12 vertebral compression in the setting of fall Dementia, likely Alzheimer's type Started IV cefepime and azithromycin Discussed with pulmonology: Recommended PICC line for IV antibiotics for 2 weeks and Pseudomonas coverage Patient clinically appears dehydrated. Careful IV hydration in the setting of history of CHF and valve disease. Monitor sodium level Trend WBC Monitor LFTs Management of pain as needed
--- NOTE | 2024-09-09 15:22 | PC.DIETICIAN ---
Nutrition recommendations: 1. Osmolite 1.5 at 20 ml/hr via PEG tube by pump. Advance 10 ml every 12 hrs to goal rate of 45 ml/hr x 24 hrs. If no IV fluids, water flushes of 25 ml/hr (or per MD). 2. Multivitamins/Minerals via PEG tube.
[2024-09-09] MEDS: CEFEPIME INJ 2 GM in SODIUM CHLORIDE 0.9% (Popper) 50 ML IV ×2 (15:26→23:53)
--- NOTE | 2024-09-09 16:15 | PD.PUCONS ---
HPI Pulmonology Consult Data of Consult Requesting Physician: Marlo Silva DO Primary Care Provider: Cari Irwin MD Consult Narrative History of present illness: Patient is a 74 year old male with significant history of bronchiectasis. Known to me from about a year ago. Admitted at that time with hemoptysis and significant volume requiring transfer to assess for embolization though no report that this was done. Now patient returning with similar hemoptysis but volume reduced and appear sto be darker in quality. Patient with significant decline in his mentation form one year ago and unable to provide history adequately. History obtained from chart and report by medicine team. He currently is denying chest pain but is coughing up blood today, he does not remember when this started. No recent fever, chills or night sweats reported. Previously unable to cough up anything but large volume of blood with historical cultures unrevealing on his microbiologic disease burden. cc:: cc: Marlo Silva DO Review of Systems Review of Systems ROS Unobtainable: unobtainable due to mental status (confusion) Past Medical History Past Medical History Comments PMH COMMENT: PMH/ PSH/ Soc Hx/ Fam Hx reviewed form prior assessment September 2023. Meds Home Medications and Allergies Home Medications ?Medication ?Instructions ?Recorded ?Confirmed ?Type aspirin 81 mg tablet,delayed 81 mg PO BID PRN Pain 09/29/23 08/03/24 History release atorvastatin 20 mg tablet 20 mg PO QPM 09/29/23 08/03/24 History cholecalciferol (vitamin D3) 125 125 mcg PO QDAY 09/29/23 08/03/24 History mcg (5,000 unit) tablet (Vitamin D3) diclofenac sodium 1 % topical gel 2 - 4 g topical BID PRN Pain 09/29/23 08/03/24 History donepezil 10 mg tablet 20 mg PO HS 09/29/23 08/03/24 History memantine 5 mg tablet 5 mg PO BID 09/29/23 08/03/24 History montelukast 10 mg tablet 10 mg PO QPM 09/29/23 08/03/24 History Allergies Allergy/AdvReac Type Severity Reaction Status Date / Time No Known Allergies Allergy Verified 09/20/23 14:03 Exam Vital Signs Temp Pulse Resp BP Pulse Ox O2 Del Method O2 Flow Rate 98.7 F 93 22 H 136/86 H 95 Room Air 3 09/12/24 07:52 09/12/24 07:52 09/12/24 07:52 09/12/24 07:52 09/12/24 07:52 09/12/24 07:52 09/11/24 12:26 Narrative Exam GEN: NAD, AAOX1 to self only HEENT: no bleeding in the oropharynx or anterior nasopharynx CVS: S1/S2+ RRR no R/M/G PULM: rhonchi bilaterally with expiratory squeak most noticeable at the left anterior chest ABD: soft/ NT/ND EXT: no clubbing or cyanosis NEURO: nonfocal on gross exam PSYCH: Confused though redirectable, flat affect Physical Exam Completion Physical Exam Complete?: Yes Results - 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 Metal 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 Installer Apprentice Labs 09/13/24 04:10 09/13/24 04:10 Labs: Short CBC 09/12/24 Range/Units 04:10 WBC 13.5 H (3.8-10.6) Thou/mm3 Hgb 9.8 L (13.5-16.0) g/dL Hct 28.1 L (41.0-53.0) % Plt Count 623 H D (140-440) Thou/mm3 BMP 09/12/24 04:10 Sodium 130 L Potassium 4.1 Chloride 96 L Carbon Dioxide 28.3 BUN 10 Creatinine 0.4 L Glucose 120 H Calcium 7.8 L Liver Function 09/12/24 Range/Units 04:10 Total Bilirubin 0.3 (0.3-1.2) mg/dL AST 37 H (0-34) U/L ALT 51 H (10-49) U/L Alkaline Phosphatase 139 H (46-116) U/L Albumin 3.0 L (3.4-4.8) gm/dL Assessment & Plan Additional Plan Additional Plan: Bronchiectasis with acute exacerbation Hemoptysis, not massive at this time Favor infectious etiology based on CT imaging done now No need for bronchoscopy at this point to identify source of bleeding Broad spectrum antibiotics given risk of pseudomonas and MRSA growth, prior cultures were unrevealing No need for double coverage at this time Complete 2 week course of antibiotics, IV typically done for bronchiectasis Fungal and AFB testing if able to direct him to do this Can consider TXA nebulized for hemoptysis, shown to reduce duration of disease process not necessarily treats underlying cause. No need for IV therapy for massive at this time. Seen with Dr. Lora on pulmonary service in the ED at time of admission D/W Medicine team, remain available fo rany needs should they arise Provider Notation Provider Notation: Although this document has been carefully reviewed, there may still be some phonetic and other typographical errors. These errors are purely grammatical due to imperfections in the software program and should not be construed in any way to compromise the substance of the patient's medical care during this visit. Thank you for the opportunity and privilege in assisting you with this patient's care and management.
[2024-09-09] MEDS: AZITHROMYCIN INJ 500 MG in SODIUM CHLORIDE 0.9% 250 ML 250 ML 250 MG IV (16:30)
[2024-09-09] MEDS: ACETAMINOPHEN 325 MG TABLET 650 MG PO (20:17)
[2024-09-09] MEDS: DONEPEZIL HCL 5 MG TABLET 20 MG PO (20:18)
[2024-09-09] MEDS: SERTRALINE HCL 25 MG TABLET 50 MG PO (20:18)
[2024-09-10] VITALS (7 sets, daily range): BP systolic 117–128; BP diastolic 67–81; PULSE 70–99; RESP 17–94; TEMP 36.1–36.8; O2SAT 93–97
[2024-09-10 05:48] LABS: Basophils # (Auto) 0.1 Thou/mm3 (0.0-0.2); Basophils % (Auto) 1 % (0-2.5); Eosinophils # (Auto) 0.2 Thou/mm3 (0.0-0.5); Eosinophils % (Auto) 1 % (0-10); Hematocrit 29.6 % (41.0-53.0); Hemoglobin 10.1 g/dL (13.5-16.0); Immature Granulocytes % (Auto) 1 % (0-0); Immature Granulocytes Auto 0.07 Thou/mm3 (0.00-0.00); Lymphocytes % (Auto) 7 % (10-50); Mean Corpuscular HGB Conc 34.1 g/dl (31.0-37.0); Mean Corpuscular Hemoglobin 27.2 pg (25.0-35.0); Mean Corpuscular Volume 80 fL (80-100); Monocytes # (Auto) 1.7 Thou/mm3 (0.0-0.8); Monocytes % (Auto) 12 % (0-12); Neutrophils # (Auto) 11.3 Thou/mm3 (1.8-7.7); Neutrophils % (Auto) 79 % (37-80); Nucleated Red Blood Cell % 0 /100 WBC (0); Platelet Count 545 Thou/mm3 (140-440); RDW Standard Deviation 44.8 fL (35.1-43.9); Red Blood Count 3.72 Miln/mm3 (4.50-5.90); White Blood Count 14.2 Thou/mm3 (3.8-10.6)
[2024-09-10] MEDS: CEFEPIME INJ 2 GM in SODIUM CHLORIDE 0.9% (Popper) 50 ML IV ×3 (05:57→21:04)
[2024-09-10 06:04] LABS: INR 1.3 (0.9-1.3); Partial Thromboplastin Time 43.7 Seconds (22.0-36.0); Prothrombin Time 14.2 Seconds (9.0-12.2)
[2024-09-10 06:47] LABS: Alanine Aminotransferase 58 U/L (10-49); Albumin/Globulin Ratio 0.9 (1.2-2.2); Alkaline Phosphatase 148 U/L (46-116); Anion Gap 6 (7-16); Aspartate Amino Transferase 41 U/L (0-34); BUN/Creatinine Ratio 28 Ratio (12-20); Bilirubin,Total 0.5 mg/dL (0.3-1.2); Blood Urea Nitrogen 11 mg/dL (9-23); Calcium 7.9 mg/dL (8.3-10.6); Calcium (Corrected) 8.7 mg/dL (8.5-10.1); Carbon Dioxide 26.3 mMol/L (20.0-31.0); Cardiac Risk Estimate 4.8 RATIO (4.0-6.7); Chloride 100 mMol/L (98-107); Cholesterol 100 mg/dL (132-200); Creatinine (Component) 0.4 mg/dL (0.6-1.3); Estimated Creatinine Clearance 105.1 mL/min (>60); Globulin 3.4 gm/dL (2.3-3.5); Glucose 103 mg/dL (74-106); HDL Cholesterol 21 mg/dL (40-60); LDL Cholesterol,Calculated 68 mg/dL (0-130); Magnesium 1.8 mg/dL (1.6-2.6); Osmolality,Calculated 263 (275-295); Phosphorous 3.3 mg/dL (2.4-5.1); Potassium 4.1 mMol/L (3.4-5.1); Sodium 132 mMol/L (136-145); Thyroid Stimulating Hormone 3.75 uIU/mL (0.55-4.78); Total Protein 6.4 gm/dL (5.7-8.2); Triglycerides 56 mg/dL (30-150); eGFR > 60 See Note
--- NOTE | 2024-09-10 08:13 | PC.NURSE ---
Tube feeding increased by 10ml at 0815. 0 residual.
[2024-09-10] MEDS: PANTOPRAZOLE INJ 40 MG VIAL IVP (08:18)
[2024-09-10] MEDS: AZITHROMYCIN INJ 500 MG in SODIUM CHLORIDE 0.9% 250 ML 250 ML 250 MG IV (08:40)
--- NOTE | 2024-09-10 09:44 | ESPR_ITS ---
Documentation for date of: 09/10/24 Subjective Subjective Interval history: No acute overnight events noted. Seen and examined at bedside and patient does not have any complaints at this time. Per nursing staff, he has not had any more episodes of hemoptysis. Also spoke to and updated on patient's situation, and she agrees to PICC line placement. Will also speak to negative developer/community health specialist to see if we can discharge with antibiotics that can be accommodated with either home health or SNF closer to discharge. Per , states that she would like patient to be discharged with home health if possible. Exam Vital Signs Temp Pulse Resp BP Pulse Ox O2 Del Method O2 Flow Rate 97.8 F 90 20 128/81 94 L Nasal Cannula 2 09/10/24 08:00 09/10/24 08:00 09/10/24 08:00 09/10/24 08:00 09/10/24 08:00 09/10/24 08:00 09/10/24 08:00 Narrative Exam General: alert, in no acute distress, able to speak full sentences, hard of hearing HEENT: dry blood around oral mucosa, NC/AT, mucous membranes moist, bilateral sclera anicteric Cardiovascular: regular rate and rhythm, S1/S2 present, no murmurs appreciated Pulmonary: clear to auscultation bilaterally, no rales/rhonchi/wheezes Abdominal: soft, non-tender, non-distended, no rebound/guarding, normal bowel sounds present Musculoskeletal: normal ROM, no peripheral edema Skin: warm and dry, intact, no rashes Objective Labs 09/10/24 04:30 09/10/24 04:30 Labs: Laboratory Results - last 24 hr 09/10/24 04:30 WBC 14.2 H D RBC 3.72 L Hgb 10.1 L Hct 29.6 L MCV 80 MCH 27.2 MCHC 34.1 RDW Std Deviation 44.8 H Plt Count 545 H D Neut % (Auto) 79 Lymph % (Auto) 7 L [place] % (Auto) 12 Eos % (Auto) 1 Baso % (Auto) 1 Neut # (Auto) 11.3 H Lymph # (Auto) 1.0 [place] # (Auto) 1.7 H Eos # (Auto) 0.2 Baso # (Auto) 0.1 Immature Gran # (Auto) 0.07 H Absolute Nucleated RBC 0.00 Immature Gran % 1 H Nucleated RBC % 0 PT 14.2 H INR 1.3 APTT 43.7 H Sodium 132 L Potassium 4.1 D Chloride 100 Carbon Dioxide 26.3 Anion Gap 6 L BUN 11 Creatinine 0.4 L Estim Creat Clear Calc 105.1 eGFR > 60 BUN/Creatinine Ratio 28 H Glucose 103 Calculated Osmolality 263 L Calcium 7.9 L Corrected Calcium 8.7 Phosphorus 3.3 Magnesium 1.8 Total Bilirubin 0.5 AST 41 H ALT 58 H Alkaline Phosphatase 148 H D Total Protein 6.4 Albumin 3.0 L D Globulin 3.4 Albumin/Globulin Ratio 0.9 L Triglycerides 56 Cholesterol 100 L LDL Cholesterol, Calc 68 HDL Cholesterol 21 L Cholesterol/HDL Ratio 4.8 TSH 3.75 Quality Measures Quality Measures sepsis Current suspected stage: ruled out Possible source: pulmonary Blood cultures ordered: yes Antibiotic ordered: Yes Advance care planning discussed with:: patient and spouse Assessment & Plan Assessment Current Active Medications: Generic Name Dose Route Start Last Admin Trade Name Freq PRN Reason Stop Dose Admin Acetaminophen 650 mg 09/09/24 11:00 09/09/24 20:17 Acetaminophen 325 Mg Tablet PO 10/09/24 10:59 650 mg Q6H PRN Administration PAIN OR FEVER > 100.4 Donepezil HCl 20 mg 09/09/24 21:00 09/09/24 20:18 Donepezil Hcl 5 Mg Tablet PO 10/09/24 20:59 20 mg HS HOMAR Administration Cefepime HCl 2 gm/ Sodium 50 mls @ 100 mls/hr 09/09/24 14:00 09/10/24 05:57 Chloride IV 09/16/24 13:59 100 mls/hr Q8HR HOMAR Administration Azithromycin 500 mg/ Sodium 250 mls @ 250 mls/hr 09/09/24 13:43 09/10/24 08:40 Chloride IV 09/16/24 13:42 250 mls/hr QDAY HOMAR Administration Ondansetron HCl 4 mg 09/09/24 11:00 Ondansetron Inj 2 Mg/Ml Inj 2 Ml IV 10/09/24 10:59 Q6H PRN NAUSEA OR VOMITING Protocol Pantoprazole Sodium 40 mg 09/10/24 09:00 09/10/24 08:18 Pantoprazole Inj 40 Mg Vial IVP 10/10/24 08:59 40 mg QDAY HOMAR Administration Quetiapine Fumarate 25 mg 09/09/24 14:32 Quetiapine Fumarate 25 Mg Tablet PO 10/09/24 20:59 HS PRN AGITATION Sertraline HCl 50 mg 09/09/24 21:00 09/09/24 20:18 Sertraline Hcl 25 Mg Tablet PO 10/09/24 20:59 50 mg HS HOMAR Administration Plan Mainor Goel is a 74-year-old male with a past history of dementia, bronchiectasis ? secondary to coccidiomycosis in ~2020, adult failure to thrive status post PEG tube placement hypertension, HFpEF (EF 50 to 60% on 08/01/2024), Spicer's esophagus, history T12 vertebral body fracture status post ground- level fall now at [facility] since 08/2024 who presented on 09/08 for hemoptysis x 1 day. Admitted for management of bronchiectasis exacerbation/hemoptysis. #History of bronchiectasis secondary to coccidiomycosis ~2020 #Hemoptysis Presented on 09/08 from [facility] for hemoptysis x 1 day. Staff there states that patient started having episodes of hemoptysis in the morning on 09/08 without any preceding symptoms, including fever, chills, cough, sore throat, and is not on supplemental oxygen. Filled 1 cup of blood so he was brought to the ED. Of note, admitted approximately 1 year ago for similar symptoms for which negative developer/community health specialist was consulted. Again spoke to negative developer/community health specialist on this admission and given that patient does not have a history of cystic fibrosis, acceptable to treat with single coverage for Pseudomonas and at this time given that hemoglobin is stable no indication for inhaled tranexamic acid. Previously worked up for Aspergillus, TB, Cocci, and Legionella in 2023 all of which were negative. ? Cefepime for pseudomonal coverage (09/09-) x2 weeks ? Azithromycin for atypical coverage (09/09-) x2 weeks ? PICC line ordered ? Sputum cultures 09/09 ? Monitor hemoglobin ? Allow coughing to clear airways #Failure to thrive, s/p PEG tube placement #Toney's esophagus During previous admission PEG tube placed due to decreased PO intake and failure to thrive. ? Referral to registered medical assistant ? Osmolite 1.5 at 20 mL/h via PEG tube pump, advance 10 mL every 12 hours to goal of 45 mL/h for 24 hours; water flushes 25 mL/h. #Hypertension #HFpEF (EF 50 to 60% with stage I diastolic dysfunction) and moderate to severe TR Echo 08/01: LV appears normal with EF 55-60%. Stage I diastolic dysfunction. RV appears normal with elevated RVSP 45 mmHg. LA mildly dilated. Mild-mod MR & MAC. Moderate & mild AI. Mod-Severe TR. Patient is on metoprolol succinate (home medication), will continue as the patient's been having episodes of sinus tachycardia Added lisinopril 5 mg p.o. daily as the patient has some degree of valvular heart disease, will increase as tolerated Monitor BP during hospitalization; adjust therapy if clinically indicated. ? Blood pressure within range, follow-up med rec #T12 vertebral body compression fractures Mechanical fall in elderly patient with advanced dementia. CTA chest shwoed acute-appearing compression fracture T12 vertebral body, depression superior endplate, reduction in height 20%. Noted to occur from previous admission. ? PT as tolerated ? Pain management ? Fall precautions #Dementia Follows Dr. Malhotra outpatient and is on donepezil 20 mg p.o. at bedtime, memantine 5 mg p.o. twice daily, quetiapine 25 mg PO PRN HS, and sertraline 50 mg PO daily. ? Continue home medications Hospital management: Disposition: on IV antibiotics, pending PICC line insertion Fluids: not indicated Diet: Osmolite 1.5 at 20 mL/h via PEG tube pump. Advance 10 mL every 12 hours to goal of 45 mL/h for 24 hours. Water flushes 25 mL/h. Lines: PIV DVT prophylaxis: SCDs GI prophylaxis: pantoprazole 40 mg IV daily CODE STATUS: DNR ----- Plan discussed with attending physician Dr. Shira Boland MD PGY-1 Internal Medicine Attending Provider Attestation/Addendum I have discussed and was present for the essential components of the history, physical examination, diagnosis, and treatment plan with the resident. I agree with the patient's care as documented by the resident and amended herein by me. Guy Silva DO. Patient seen and evaluated this AM. Vital signs stable, patient afebrile overnight, no acute events overnight, WBC has down trended to 14, platelets 545, CMP largely unremarkable. Ejection fraction 45%. Will continue a total 2-week course of antipseudomonal coverage with antibiotics per pulmonology. May be difficult to find placement as the patient will need cefepime or Zosyn which are 3 times a day antibiotics. I do not believe Levaquin has adequate coverage as per discussed the case with pharmacy. Social work notified, PICC line ordered for tomorrow. Will continue to monitor closely. Although this document has been carefully reviewed, there may still be some phonetic and other typographical errors. These errors are purely grammatical due to imperfections in the software program and should not be construed in any way to compromise the substance of the patient's medical care during this visit.
--- NOTE | 2024-09-10 14:45 | PC.SS ---
Rounding note: patient may need pic line and IV abx 3 times a day at a SNF.
[2024-09-10] MEDS: DONEPEZIL HCL 5 MG TABLET 20 MG PO (20:59)
[2024-09-10] MEDS: ACETAMINOPHEN 325 MG TABLET 650 MG PO (20:59)
[2024-09-10] MEDS: SERTRALINE HCL 25 MG TABLET 50 MG PO (21:00)
[2024-09-11] VITALS (9 sets, daily range): BP systolic 115–135; BP diastolic 65–83; PULSE 81–101; RESP 16–94; TEMP 36.5–36.9; O2SAT 93–99
[2024-09-11] MEDS: CEFEPIME INJ 2 GM in SODIUM CHLORIDE 0.9% (Popper) 50 ML IV ×3 (06:06→21:57)
[2024-09-11 06:28] LABS: Basophils # (Auto) 0.1 Thou/mm3 (0.0-0.2); Basophils % (Auto) 1 % (0-2.5); Eosinophils # (Auto) 0.2 Thou/mm3 (0.0-0.5); Eosinophils % (Auto) 2 % (0-10); Hematocrit 29.4 % (41.0-53.0); Hemoglobin 10.1 g/dL (13.5-16.0); Immature Granulocytes % (Auto) 1 % (0-0); Immature Granulocytes Auto 0.07 Thou/mm3 (0.00-0.00); Lymphocytes # (Auto) 1.4 Thou/mm3 (1.0-4.8); Lymphocytes % (Auto) 11 % (10-50); Mean Corpuscular HGB Conc 34.4 g/dl (31.0-37.0); Mean Corpuscular Hemoglobin 27.4 pg (25.0-35.0); Mean Corpuscular Volume 80 fL (80-100); Monocytes # (Auto) 1.8 Thou/mm3 (0.0-0.8); Monocytes % (Auto) 14 % (0-12); Neutrophils # (Auto) 9.2 Thou/mm3 (1.8-7.7); Neutrophils % (Auto) 72 % (37-80); Nucleated Red Blood Cell % 0 /100 WBC (0); Platelet Count 575 Thou/mm3 (140-440); RDW Standard Deviation 45.1 fL (35.1-43.9); Red Blood Count 3.68 Miln/mm3 (4.50-5.90); White Blood Count 12.8 Thou/mm3 (3.8-10.6)
--- NOTE | 2024-09-11 06:34 | PC.NURSE ---
pt has a peg tube and he has PO meds ordered but there is no diet ordered or order to give PO peds, commercial underwriter suggested MD to change po meds to G-tube or to put order to give po meds, md stated that she would check chart and pass report to day team. Per Pt's , pt has been getting pills through g-tube. Md was made aware that pt got night time meds through G-tube.
[2024-09-11 06:56] LABS: Alanine Aminotransferase 56 U/L (10-49); Albumin/Globulin Ratio 0.9 (1.2-2.2); Alkaline Phosphatase 141 U/L (46-116); Anion Gap 4 (7-16); Aspartate Amino Transferase 42 U/L (0-34); BUN/Creatinine Ratio 25 Ratio (12-20); Bilirubin,Total 0.4 mg/dL (0.3-1.2); Blood Urea Nitrogen 10 mg/dL (9-23); Calcium 7.8 mg/dL (8.3-10.6); Calcium (Corrected) 8.6 mg/dL (8.5-10.1); Chloride 98 mMol/L (98-107); Creatinine (Component) 0.4 mg/dL (0.6-1.3); Estimated Creatinine Clearance 105.1 mL/min (>60); Globulin 3.4 gm/dL (2.3-3.5); Glucose 113 mg/dL (74-106); Magnesium 1.7 mg/dL (1.6-2.6); Osmolality,Calculated 264 (275-295); Phosphorous 3.2 mg/dL (2.4-5.1); Potassium 4.2 mMol/L (3.4-5.1); Sodium 132 mMol/L (136-145); Total Protein 6.4 gm/dL (5.7-8.2); eGFR > 60 See Note
[2024-09-11] MEDS: PANTOPRAZOLE INJ 40 MG VIAL IVP (08:58)
[2024-09-11] MEDS: AZITHROMYCIN INJ 500 MG in SODIUM CHLORIDE 0.9% 250 ML 250 ML 250 MG IV (08:59)
--- NOTE | 2024-09-11 09:44 | PC.SS ---
Update: Plan is for the patient to obtain PICC line. Patient will need IV antibiotics 3x a day. IV antibiotic length of time for 2 weeks. 09-09-24 to 09-23-24.
--- NOTE | 2024-09-11 11:58 | PD.RESPRO ---
Documentation for date of: 09/11/24 Subjective Subjective Interval history: No acute overnight events noted. Seen and examined at bedside with present and spoke to her about possibility of home health. She is amenable and willing to administer IV antibiotics if needed. Also spoke to social contact worker given that patient came from [facility], will try and see if patient can be discharged back to home with home health. PICC line insertion planned for today. Otherwise, no recorded fevers overnight, on room air. WBC improving, hemoglobin stable, and LFTs also stable. Possible discharge within next 24-48 hours as sputum culture was negative, urine culture negative, and blood culture with no growth to date. Exam Vital Signs Temp Pulse Resp BP Pulse Ox O2 Del Method O2 Flow Rate 98.4 F 88 18 115/70 94 L Room Air 2 09/11/24 08:00 09/11/24 08:00 09/11/24 08:00 09/11/24 08:00 09/11/24 08:00 09/11/24 08:00 09/10/24 20:00 Narrative Exam General: alert, in no acute distress, able to speak full sentences, hard of hearing HEENT: dry blood around oral mucosa, NC/AT, mucous membranes moist, bilateral sclera anicteric Cardiovascular: regular rate and rhythm, S1/S2 present, no murmurs appreciated Pulmonary: clear to auscultation bilaterally, no rales/rhonchi/wheezes Abdominal: soft, non-tender, non-distended, no rebound/guarding, normal bowel sounds present Musculoskeletal: normal ROM, no peripheral edema Skin: warm and dry, intact, no rashes Objective Labs 09/11/24 05:31 09/11/24 05:31 Labs: Laboratory Results - last 24 hr 09/11/24 05:31 WBC 12.8 H RBC 3.68 L Hgb 10.1 L Hct 29.4 L MCV 80 MCH 27.4 MCHC 34.4 RDW Std Deviation 45.1 H Plt Count 575 H D Neut % (Auto) 72 Lymph % (Auto) 11 [place] % (Auto) 14 H Eos % (Auto) 2 Baso % (Auto) 1 Neut # (Auto) 9.2 H Lymph # (Auto) 1.4 [place] # (Auto) 1.8 H Eos # (Auto) 0.2 Baso # (Auto) 0.1 Immature Gran # (Auto) 0.07 H Absolute Nucleated RBC 0.00 Immature Gran % 1 H Nucleated RBC % 0 Sodium 132 L Potassium 4.2 Chloride 98 Carbon Dioxide 30.0 Anion Gap 4 L BUN 10 Creatinine 0.4 L Estim Creat Clear Calc 105.1 eGFR > 60 BUN/Creatinine Ratio 25 H Glucose 113 H Calculated Osmolality 264 L Calcium 7.8 L Corrected Calcium 8.6 Phosphorus 3.2 Magnesium 1.7 Total Bilirubin 0.4 AST 42 H ALT 56 H Alkaline Phosphatase 141 H Total Protein 6.4 Albumin 3.0 L Globulin 3.4 Albumin/Globulin Ratio 0.9 L Quality Measures Quality Measures sepsis Current suspected stage: ruled out Possible source: pulmonary Blood cultures ordered: yes Antibiotic ordered: Yes Advance care planning discussed with:: patient Assessment & Plan Assessment Current Active Medications: Generic Name Dose Route Start Last Admin Trade Name Freq PRN Reason Stop Dose Admin Acetaminophen 650 mg 09/09/24 11:00 09/10/24 20:59 Acetaminophen 325 Mg Tablet PO 10/09/24 10:59 650 mg Q6H PRN Administration PAIN OR FEVER > 100.4 Donepezil HCl 20 mg 09/09/24 21:00 09/10/24 20:59 Donepezil Hcl 5 Mg Tablet PO 10/09/24 20:59 20 mg HS HOMAR Administration Cefepime HCl 2 gm/ Sodium 50 mls @ 100 mls/hr 09/09/24 14:00 09/11/24 06:06 Chloride IV 09/16/24 13:59 100 mls/hr Q8HR HOMAR Administration Azithromycin 500 mg/ Sodium 250 mls @ 250 mls/hr 09/09/24 13:43 09/11/24 08:59 Chloride IV 09/16/24 13:42 250 mls/hr QDAY HOMAR Administration Ondansetron HCl 4 mg 09/09/24 11:00 Ondansetron Inj 2 Mg/Ml Inj 2 Ml IV 10/09/24 10:59 Q6H PRN NAUSEA OR VOMITING Protocol Pantoprazole Sodium 40 mg 09/10/24 09:00 09/11/24 08:58 Pantoprazole Inj 40 Mg Vial IVP 10/10/24 08:59 40 mg QDAY HOMAR Administration Quetiapine Fumarate 25 mg 09/09/24 14:32 Quetiapine Fumarate 25 Mg Tablet PO 06/05/25 20:59 HS PRN AGITATION Sertraline HCl 50 mg 09/09/24 21:00 09/10/24 21:00 Sertraline Hcl 25 Mg Tablet PO 10/09/24 20:59 50 mg HS HOMAR Administration Plan Mainor Goel is a 74-year-old male with a past history of dementia, bronchiectasis ? secondary to coccidiomycosis in ~2020, adult failure to thrive status post PEG tube placement hypertension, HFpEF (EF 50 to 60% on 08/01/2024), Spicer's esophagus, history T12 vertebral body fracture status post ground-level fall now at [facility] since 08/2024 who presented on 09/08 for hemoptysis x 1 day. Admitted for management of bronchiectasis exacerbation/hemoptysis. #History of bronchiectasis secondary to coccidiomycosis ~2020 #Hemoptysis Presented on 09/08 from [facility] for hemoptysis x 1 day. Staff there states that patient started having episodes of hemoptysis in the morning on 09/08 without any preceding symptoms, including fever, chills, cough, sore throat, and is not on supplemental oxygen. Filled 1 cup of blood so he was brought to the ED. Of note, admitted approximately 1 year ago for similar symptoms for which human resources coordinator/digital marketing executive was consulted. Again spoke to human resources coordinator/digital marketing executive on this admission and given that patient does not have a history of cystic fibrosis, acceptable to treat with single coverage for Pseudomonas and at this time given that hemoglobin is stable no indication for inhaled tranexamic acid. Previously worked up for Aspergillus, TB, Cocci, and Legionella in 2023 all of which were negative. ? Cefepime for pseudomonal coverage (09/09-) x2 weeks ? Azithromycin for atypical coverage (09/09-) x2 weeks ? PICC line ordered ? Sputum cultures 09/09: negative ? Blood cultures 09/09: NGTD ? Monitor hemoglobin ? Allow coughing to clear airways #Failure to thrive, s/p PEG tube placement #Toney's esophagus During previous admission PEG tube placed due to decreased PO intake and failure to thrive. ? Referral to screening unit registered nurse ? Osmolite 1.5 at 20 mL/h via PEG tube pump, advance 10 mL every 12 hours to goal of 45 mL/h for 24 hours; water flushes 25 mL/h. #Hypertension #HFpEF (EF 50 to 60% with stage I diastolic dysfunction) and moderate to severe TR Echo 08/01: LV appears normal with EF 55-60%. Stage I diastolic dysfunction. RV appears normal with elevated RVSP 45 mmHg. LA mildly dilated. Mild-mod MR & MAC. Moderate & mild AI. Mod-Severe TR. Patient is on metoprolol succinate (home medication), will continue as the patient's been having episodes of sinus tachycardia Added lisinopril 5 mg p.o. daily as the patient has some degree of valvular heart disease, will increase as tolerated Monitor BP during hospitalization; adjust therapy if clinically indicated. ? Blood pressure within range #T12 vertebral body compression fractures Mechanical fall in elderly patient with advanced dementia. CTA chest shwoed acute-appearing compression fracture T12 vertebral body, depression superior endplate, reduction in height 20%. Noted to occur from previous admission. ? PT as tolerated ? Pain management ? Fall precautions #Dementia Follows Dr. Malhotra outpatient and is on donepezil 20 mg p.o. at bedtime, memantine 5 mg p.o. twice daily, quetiapine 25 mg PO PRN HS, and sertraline 50 mg PO daily. ? Continue home medications Hospital management: Disposition: on IV antibiotics, pending PICC line insertion and DC with home health Fluids: not indicated Diet: Osmolite 1.5 at 20 mL/h via PEG tube pump. Advance 10 mL every 12 hours to goal of 45 mL/h for 24 hours. Water flushes 25 mL/h. Lines: PIV DVT prophylaxis: SCDs GI prophylaxis: pantoprazole 40 mg IV daily CODE STATUS: DNR ----- Plan discussed with attending physician Dr. Shira Boland MD PGY-1 Internal Medicine Attending Provider Attestation/Addendum I have discussed and was present for the essential components of the history, physical examination, diagnosis, and treatment plan with the resident. I agree with the patient's care as documented by the resident and amended herein by me. Guy Silva DO. Patient seen and evaluated this AM. No acute events overnight, vital signs stable, patient afebrile. Continuing the patient on cefepime and azithromycin right now, the patient will need approximately 2 weeks of IV antibiotic coverage for Pseudomonas. Patient will get PICC line today and the question is however going to place the patient with a multiple day dosing IV antibiotics such as cefepime. attraction worker is aware and is attempting to find placement. Although this document has been carefully reviewed, there may still be some phonetic and other typographical errors. These errors are purely grammatical due to imperfections in the software program and should not be construed in any way to compromise the substance of the patient's medical care during this visit.
[2024-09-11] MEDS: HEPARIN SOD LOCK SYR 100 UNIT/ML 500 UNIT STFIELD (12:17)
[2024-09-11] MEDS: LIDOCAINE INJ PF 1% 30 ML VIAL 4 ML EPID (12:17)
--- NOTE | 2024-09-11 12:56 | PC.NURSE ---
patient was brought down to cathlab via gurney, consent obtained from at bedside, patient taken to IR for PICC line insertion, (see MAR for medications given) patient was prepped and draped, time out performed with team, PICC line successfully inserted on the right basilic measuring at 39CM, MD Estevez gave me a verbal order to may use picc line, no complications during the procedure, report given to Keyla via phone, i will take patient back up to room via gurney.
--- NOTE | 2024-09-11 13:15 | PC.SS ---
CHIEF LOAD DISPATCHER notified by supply chain planner that patient's spouse requesting that patient discharge home versus return to SNF. CHIEF LOAD DISPATCHER contacted transfer nurse to inquire if home health can accommodate patient's return home with IV antibiotics. Transfer nurse shared with CHIEF LOAD DISPATCHER that [facility] home health can provide patient's family with education on IV administration. Home health can conduct home visits 2x a week for the initial week. Subsequent visits will be 1x a week. Family will be responsible for dispensing IV medicaiton.
--- NOTE | 2024-09-11 13:21 | PC.SS ---
FURNITURE SERVICER conducted contact with patient's spouse, Callie Goel; to relay that [facility] health can provide education to the patient's family on administration of IV antibiotics. Discussed with spouse frequency of IV medication to be 3x a day. FURNITURE SERVICER shared that home health will provide support/education 2X a week for the first week. Subsequent week will be 1X a week. Spouse shared that she and daughter are receptive to obtaining education on dispensing IV medication to the patient. Patient's spouse confirmed plan to have patient transition home with [facility] health services.
--- NOTE | 2024-09-11 14:40 | PC.CC ---
Addendum entered by Miguelina Pardo RN 09/11/24 15:06: Pt is booked with [facility], pending SOC Addendum entered by Miguelina Pardo RN 09/11/24 14:41: DC paket and dc summary still needs to be sent Original Note: Pt is open with [facility], referral sent to them, referral also sent to infusion pharmacy will wait for responses
--- NOTE | 2024-09-11 15:52 | XR_ITS ---
Examination: Ultrasound-guided needle placement right brachial vein. Dual-lumen central line placement (PICC line). Fluoroscopy AP chest, portable, single view Exam date and time:September 11, 2024 1134 hours INDICATIONS: Need for long-term intravenous antibiotic therapy A timeout was completed verifying correct patient, procedure, site, positioning Informed consent provided Technique: The patient's site was prepped and draped in sterile fashion. Maximum Sterile Barrier Technique used including cap, mask, sterile gown, sterile gloves, and sterile full body drape. If ultrasound technique used: sterile gel and sterile probe covers. Hand Hygiene performed using proper scrub, soap and water, or alcohol-based hand rub. Site right portable apparatus utilized to confirm patency of the right brachial vein Utilizing ultrasonographic guidance successful 21-gauge needle puncture into the right brachial vein Ultrasound images recorded and stored. 5 cc 1% lidocaine administered for local anesthetic. Successful micropuncture with a 21-gauge needle is performed. 0.18 wire guide is then introduced into the SVC under fluoroscopic guidance. Dual-lumen catheter dilator is then introduced, followed by the catheter in the SVC and proper position under fluoroscopic guidance. Successful aspiration of blood and flushing with heparinized saline is then performed in the 2 venous limbs. The catheter sutured in place. Findings: Under fluoroscopy, the tip of the catheter is in good position in the vena cava. Portable chest x-ray, post line placement is ordered. Estimated blood loss 3 cc The patient tolerated the procedure well and was in stable and satisfactory condition at completion of the procedure Impression: Successful ultrasound-guided needle placement right brachial vein Successful placement of dual lumen central line, percutaneous Fluoroscopy 0.2 minute radiation dose 0.80 milligray 1 spot fluoroscopic chest film. AP chest completion procedure demonstrates satisfactory position central line. May use central line.
--- NOTE | 2024-09-11 16:00 | PC.SS ---
DISABILITIES SERVICES OFFICER informed by attending that patient will need feeding pump for PEG tube feedings. DISABILITIES SERVICES OFFICER updated transfer nurse of need to submit request for feeding pump. DISABILITIES SERVICES OFFICER contacted attending to submit home health order with tube feeding diet. Once order placed, transfer nurse will submit request for order.
--- NOTE | 2024-09-11 16:45 | PC.SS ---
MOUNTAIN OR GLACIER GUIDE conducted bedside contact with the patient to conduct initial assessment and to discuss discharge planning.? Present with patient at bedside was spouse, Callie Barriga .? Information obtained from patient?s spouse.? Prior to current admission patient was placed at [facility].? Patient at SNF for approximately 1 month.? Patient in possession of PEG tube.? PEG tube placed during prior admission.? Patient utilizes a wheelchair for mobility.? Patient does not utilize oxygen.? Patient requires assistance with completion of ADL?s.? Patient?s surrogate medical decision maker is spouse, Callie Barriga.? Facility PCP is Dr. Irwin.? Patient possesses history of dementia.? Discharge plan is for the patient to transition home.? Patient will require IV antibiotics 3X a day until 09-23-24.? Patient will also require feeding pump for PEG tube feedings.? Patient previously aligned with [facility] health.? Plan will be for patient to re-align with [facility] health.? Referral for home health to be submitted.? Referral to [facility] to submitted for IV antibiotic and feeding pump.? Results are pending.? Patient will require ambulance transport upon discharge home.? No further discharge needs identified by the patient?s spouse.? No further intervention required at this time, social worker masters will be available to address any further concerns.? Next of Kin: Callie Barriga D/C Plan: Home
[2024-09-11] MEDS: SERTRALINE HCL 25 MG TABLET 50 MG PO (20:16)
[2024-09-11] MEDS: DONEPEZIL HCL 5 MG TABLET 20 MG PO (20:16)
[2024-09-12] VITALS (8 sets, daily range): BP systolic 113–139; BP diastolic 68–86; PULSE 85–101; RESP 16–95; TEMP 36.2–37.3; O2SAT 92–95; BMI 13.0
--- NOTE | 2024-09-12 01:36 | PC.NURSE ---
When nurse entered patient's room to check on patient. Nurse noticed that the patient coughed up a bloody tinged mucus. Nurse assessed patient and notified Dr. Major regarding findings. Per Dr. Major, monitor patient.
[2024-09-12] MEDS: CEFEPIME INJ 2 GM in SODIUM CHLORIDE 0.9% (Popper) 50 ML IV ×3 (05:25→21:17)
[2024-09-12 05:46] LABS: Basophils # (Auto) 0.1 Thou/mm3 (0.0-0.2); Basophils % (Auto) 1 % (0-2.5); Eosinophils # (Auto) 0.1 Thou/mm3 (0.0-0.5); Eosinophils % (Auto) 1 % (0-10); Hematocrit 28.1 % (41.0-53.0); Hemoglobin 9.8 g/dL (13.5-16.0); Immature Granulocytes % (Auto) 1 % (0-0); Immature Granulocytes Auto 0.08 Thou/mm3 (0.00-0.00); Lymphocytes # (Auto) 1.3 Thou/mm3 (1.0-4.8); Lymphocytes % (Auto) 9 % (10-50); Mean Corpuscular HGB Conc 34.9 g/dl (31.0-37.0); Mean Corpuscular Hemoglobin 27.6 pg (25.0-35.0); Mean Corpuscular Volume 79 fL (80-100); Monocytes # (Auto) 1.6 Thou/mm3 (0.0-0.8); Monocytes % (Auto) 12 % (0-12); Neutrophils # (Auto) 10.4 Thou/mm3 (1.8-7.7); Neutrophils % (Auto) 77 % (37-80); Nucleated Red Blood Cell % 0 /100 WBC (0); Platelet Count 623 Thou/mm3 (140-440); RDW Standard Deviation 44.7 fL (35.1-43.9); Red Blood Count 3.55 Miln/mm3 (4.50-5.90); White Blood Count 13.5 Thou/mm3 (3.8-10.6)
[2024-09-12 06:12] LABS: Alanine Aminotransferase 51 U/L (10-49); Albumin/Globulin Ratio 0.9 (1.2-2.2); Alkaline Phosphatase 139 U/L (46-116); Anion Gap 6 (7-16); Aspartate Amino Transferase 37 U/L (0-34); BUN/Creatinine Ratio 25 Ratio (12-20); Bilirubin,Total 0.3 mg/dL (0.3-1.2); Blood Urea Nitrogen 10 mg/dL (9-23); Calcium 7.8 mg/dL (8.3-10.6); Calcium (Corrected) 8.6 mg/dL (8.5-10.1); Carbon Dioxide 28.3 mMol/L (20.0-31.0); Chloride 96 mMol/L (98-107); Creatinine (Component) 0.4 mg/dL (0.6-1.3); Estimated Creatinine Clearance 105.1 mL/min (>60); Globulin 3.4 gm/dL (2.3-3.5); Glucose 120 mg/dL (74-106); Magnesium 1.7 mg/dL (1.6-2.6); Osmolality,Calculated 260 (275-295); Potassium 4.1 mMol/L (3.4-5.1); Sodium 130 mMol/L (136-145); Total Protein 6.4 gm/dL (5.7-8.2); eGFR > 60 See Note
[2024-09-12] MEDS: PANTOPRAZOLE INJ 40 MG VIAL IVP (08:13)
[2024-09-12] MEDS: AZITHROMYCIN INJ 500 MG in SODIUM CHLORIDE 0.9% 250 ML 250 ML 250 MG IV (08:13)
--- NOTE | 2024-09-12 13:44 | PC.SS ---
Addendum entered by Gayle Coburn 09/12/24 15:08: SS follow up note; SS was informed by Micah that patient should discharge tomorrow between 9-9:30AM that way Oliveroseline could follow up with patient right after at home. Original Note: SS follow up note; HIRAL contacted Micah transfer nurse and she informed SS that Conor would be able to go out tomorrow. Patient will discharge home with tomorrow.
--- NOTE | 2024-09-12 13:52 | ESPR_ITS ---
Documentation for date of: 09/12/24 Subjective - Hospitalist Subjective Interval history: No acute events overnight, vital signs stable, patient afebrile, 2 episodes of small amount of hemoptysis per the patient's . WBC stable at 13, hemoglobin 9.8, CMP largely unremarkable, sodium 130 but stable. Exam Vital Signs Temp Pulse Resp BP Pulse Ox O2 Del Method O2 Flow Rate 97.8 F 86 18 113/72 92 L Room Air 3 09/12/24 11:38 09/12/24 11:38 09/12/24 11:38 09/12/24 11:38 09/12/24 11:38 09/12/24 07:52 09/11/24 12:26 Narrative GENERAL APPEARANCE: NAD, resting comfortably HEENT: Normocephalic, atraumatic, extraocular movements intact NECK: Supple CARDIOVASULAR: NSR, S1, S2 heard without S3-S4 or murmur no rubs or gallops. LUNGS/CHEST: CTA bilaterally ABDOMEN: Soft, nontender, with normal bowel sounds NEURO: ANO x 1, appears to be at baseline Objective - Hospitalist Labs Diagram: 09/12/24 04:10 09/12/24 04:10 Labs: Laboratory Results - last 24 hr 09/12/24 04:10 WBC 13.5 H RBC 3.55 L Hgb 9.8 L Hct 28.1 L MCV 79 L MCH 27.6 MCHC 34.9 RDW Std Deviation 44.7 H Plt Count 623 H D Neut % (Auto) 77 Lymph % (Auto) 9 L [place] % (Auto) 12 Eos % (Auto) 1 Baso % (Auto) 1 Neut # (Auto) 10.4 H Lymph # (Auto) 1.3 [place] # (Auto) 1.6 H Eos # (Auto) 0.1 Baso # (Auto) 0.1 Immature Gran # (Auto) 0.08 H Absolute Nucleated RBC 0.00 Immature Gran % 1 H Nucleated RBC % 0 Sodium 130 L Potassium 4.1 Chloride 96 L Carbon Dioxide 28.3 Anion Gap 6 L BUN 10 Creatinine 0.4 L Estim Creat Clear Calc 105.1 eGFR > 60 BUN/Creatinine Ratio 25 H Glucose 120 H Calculated Osmolality 260 L Calcium 7.8 L Corrected Calcium 8.6 Phosphorus 3.0 Magnesium 1.7 Total Bilirubin 0.3 AST 37 H ALT 51 H Alkaline Phosphatase 139 H Total Protein 6.4 Albumin 3.0 L Globulin 3.4 Albumin/Globulin Ratio 0.9 L Assessment & Plan Plan: Mainor Goel is a 74-year-old male with a past history of dementia, bronchiectasis ? secondary to coccidiomycosis in ~2020, adult failure to thrive status post PEG tube placement hypertension, HFpEF (EF 50 to 60% on 08/01/2024), Spicer's esophagus, history T12 vertebral body fracture status post ground- level fall now at [facility] since 08/2024 who presented on 09/08 for hemoptysis x 1 day. Admitted for management of bronchiectasis exacerbation/hemoptysis. # Cavitary lesions likely secondary to pneumonia/infection with gram-negative organisms #Hemoptysis likely secondary to infection #History of bronchiectasis secondary to coccidiomycosis ~2020 Presented on 09/08 from [facility] for hemoptysis x 1 day. Staff there states that patient started having episodes of hemoptysis in the morning on 09/08 without any preceding symptoms, including fever, chills, cough, sore throat, and is not on supplemental oxygen. Filled 1 cup of blood so he was brought to the ED. Of note, admitted approximately 1 year ago for similar symptoms for which percussion instrument tuner/sandwich and drink cart operator was consulted. Again spoke to percussion instrument tuner/sandwich and drink cart operator on this admission and given that patient does not have a history of cystic fibrosis, acceptable to treat with single coverage for Pseudomonas and at this time given that hemoglobin is stable no indication for inhaled tranexamic acid. Previously worked up for Aspergillus, TB, Cocci, and Legionella in 2023 all of which were negative. ? Cefepime for pseudomonal coverage (09/09-) x2 weeks ? Azithromycin for atypical coverage discontinued ? PICC line placed ? Sputum cultures 09/09: negative ? Blood cultures 09/09: NGTD ? Monitor hemoglobin ? Allow coughing to clear airways #Failure to thrive, s/p PEG tube placement #Toney's esophagus During previous admission PEG tube placed due to decreased PO intake and failure to thrive. ? Tube feeds: Osmolite 1.5 at 20 mL/h via PEG tube pump, advance 10 mL every 12 hours to goal of 45 mL/h for 24 hours; water flushes 25 mL/h. #Hypertension #HFpEF (EF 50 to 60% with stage I diastolic dysfunction) and moderate to severe TR Echo 08/01: LV appears normal with EF 55-60%. Stage I diastolic dysfunction. RV appears normal with elevated RVSP 45 mmHg. LA mildly dilated. Mild-mod MR & MAC. Moderate & mild AI. Mod-Severe TR. Monitor BP during hospitalization; adjust therapy if clinically indicated. ? CTM #T12 vertebral body compression fractures Mechanical fall in elderly patient with advanced dementia. CTA chest showed acute-appearing compression fracture T12 vertebral body, depression superior endplate, reduction in height 20%. Noted to occur from previous admission. ? PT as tolerated ? Pain management ? Fall precautions #Dementia Follows Dr. Malhotra outpatient and is on donepezil 20 mg p.o. at bedtime, memantine 5 mg p.o. twice daily, quetiapine 25 mg PO PRN HS, and sertraline 50 mg PO daily. ? Continue home medications Hospital management: Disposition: Likely discharge tomorrow pending home home health for tube feed pump and IV antibiotics Fluids: not indicated Diet: Osmolite 1.5 at 20 mL/h via PEG tube pump. Advance 10 mL every 12 hours to goal of 45 mL/h for 24 hours. Water flushes 25 mL/h. Lines: PIV DVT prophylaxis: SCDs GI prophylaxis: pantoprazole 40 mg IV daily CODE STATUS: DNR Time Spent with Patient Time: Total time spent is greater than 50% in coordination of care (as documented) at patient's floor/unit and/or counseling patient: Time with patient: 25 - 35 minutes Reason for Continued Stay Reason for continued stay: other Quality Measures Quality Measures sepsis Current suspected stage: ruled out Possible source: pulmonary Blood cultures ordered: yes Antibiotic ordered: Yes Advance care planning discussed with:: significant other
--- NOTE | 2024-09-12 15:01 | PC.NURSE ---
SS made aware of call RN received from patient's . Callie was concerned about a phone call from Cyn POWELL, stating patient was discharging today, also stated she did not have all supplies needed to care for patient at home yet. SS will call and clarify discharge plan and time.
--- NOTE | 2024-09-12 18:43 | PC.CC ---
1406: Conor confirmed RN available until 12pm for SOC tomorrow. christmas tree farm worker Gayle and Dr Silva were notified that pt can be discharged after 0600am abx dose and before 12pm tomorrow. 0846: Per ICS, delivery for IV ABX by 3pm today. Inquired about the tube feeding as well, at 1128, ICS stated Callie () has agreed to pay wong for the tube feedings until ins coverage is resolved. [facility] confirmed that both IV abx and tube feeding to be delivered today by 3pm.
[2024-09-12] MEDS: DONEPEZIL HCL 5 MG TABLET 20 MG PO (20:47)
[2024-09-12] MEDS: SERTRALINE HCL 25 MG TABLET 50 MG PO (20:47)
[2024-09-13] VITALS: BP 132/85; PULSE 90; RESP 16; TEMP 36.3; O2SAT 95
[2024-09-13 01:46] VITALS: PULSE 86; RESP 18; RESP 95
[2024-09-13 04:00] VITALS: BP 136/96; PULSE 101; RESP 16; TEMP 36.6; O2SAT 95
[2024-09-13 05:20] LABS: Basophils # (Auto) 0.1 Thou/mm3 (0.0-0.2); Basophils % (Auto) 1 % (0-2.5); Eosinophils # (Auto) 0.3 Thou/mm3 (0.0-0.5); Eosinophils % (Auto) 2 % (0-10); Hematocrit 29.4 % (41.0-53.0); Hemoglobin 10.2 g/dL (13.5-16.0); Immature Granulocytes % (Auto) 1 % (0-0); Immature Granulocytes Auto 0.07 Thou/mm3 (0.00-0.00); Lymphocytes # (Auto) 1.4 Thou/mm3 (1.0-4.8); Lymphocytes % (Auto) 11 % (10-50); Mean Corpuscular HGB Conc 34.7 g/dl (31.0-37.0); Mean Corpuscular Hemoglobin 27.2 pg (25.0-35.0); Mean Corpuscular Volume 78 fL (80-100); Monocytes # (Auto) 1.6 Thou/mm3 (0.0-0.8); Monocytes % (Auto) 13 % (0-12); Neutrophils # (Auto) 9.4 Thou/mm3 (1.8-7.7); Neutrophils % (Auto) 73 % (37-80); Nucleated Red Blood Cell % 0 /100 WBC (0); Platelet Count 648 Thou/mm3 (140-440); Red Blood Count 3.75 Miln/mm3 (4.50-5.90); White Blood Count 12.9 Thou/mm3 (3.8-10.6)
[2024-09-13 05:34] LABS: Alanine Aminotransferase 49 U/L (10-49); Albumin/Globulin Ratio 0.9 (1.2-2.2); Alkaline Phosphatase 138 U/L (46-116); Anion Gap 3 (7-16); Aspartate Amino Transferase 34 U/L (0-34); BUN/Creatinine Ratio 20 Ratio (12-20); Bilirubin,Total 0.3 mg/dL (0.3-1.2); Blood Urea Nitrogen 8 mg/dL (9-23); Calcium 7.8 mg/dL (8.3-10.6); Calcium (Corrected) 8.6 mg/dL (8.5-10.1); Carbon Dioxide 28.9 mMol/L (20.0-31.0); Chloride 96 mMol/L (98-107); Creatinine (Component) 0.4 mg/dL (0.6-1.3); Estimated Creatinine Clearance 105.1 mL/min (>60); Globulin 3.5 gm/dL (2.3-3.5); Glucose 97 mg/dL (74-106); Osmolality,Calculated 255 (275-295); Potassium 4.4 mMol/L (3.4-5.1); Sodium 128 mMol/L (136-145); Total Protein 6.5 gm/dL (5.7-8.2); eGFR > 60 See Note
[2024-09-13] MEDS: CEFEPIME INJ 2 GM in SODIUM CHLORIDE 0.9% (Popper) 50 ML IV (05:40)
[2024-09-13 08:00] VITALS: BP 135/80; PULSE 88; RESP 16; TEMP 36.4; O2SAT 94
--- NOTE | 2024-09-13 08:13 | PC.CC ---
Addendum entered by Sheree Servin RN 09/13/24 09:27: Received call from DUSTIN Em that Ambulance product picker is at 1030. I reached out to Conor to request a change in SOC time. Conor confirmed SOC to be 1100 am today. DUSTIN Pino called to inform me that Ambulance product picker time is now at 1000 am today. Original Note: DUSTIN Em was informed of pt needing to dc by 930 am. Conor POWELL will be at pt's home for SOC 10-1030am today. Maria Antonia stated she will work on transportation. Dr. Malhotra informed about needing dc orders, she stated they are working on dc orders now. Bedside NORMAN Hoffman informed of pt needing to dc by 0930am. die machine operator Gayle informed of pt needing to dc by 0930am.
--- NOTE | 2024-09-13 08:55 | PC.SS ---
Addendum entered by Maria Antonia Angel 09/13/24 10:31: SS received call from KEVIN Miguel, she stated ambulance transportation will be pushed to 1130 due to limited availability and other emergencies. Transfer NORMAN Ramon and NORMAN Kelly informed, they stated patient cannot discharge until ALISA meets with family in the home. SS contacted KEVIN-Myriam to request sooner time, Myriam stated it is beyond their control and the next available ambulance would be at 1130. Transfer NORMAN Kelly and Yenny informed. Addendum entered by Maria Antonia Angel 09/13/24 09:24: 0832 Address for transportation was confirmed with patient's spouse, Callie Barriga [phone]. Address for transport is [address] [place] [address]. Original Note: KIARRA obtained. [facility] contacted, ETA 1030 transport provided. [facility] stated earliest available time is 1030 if earlier time slot is open SS to be contacted. Charge nurse informed. Transfer NORMAN Ramon informed of transport time 1030. SS informed by NORMAN Ramon patient must discharge home by 0930. ALISA to meet patient and family at 10AM.
--- NOTE | 2024-09-13 09:38 | PC.SS ---
FINANCIAL ADVISOR spoke to charge nurse Layne regarding pt needing to be discharged before 11am due to home health only being able to go to pt's home latest 11am, FINANCIAL ADVISOR called [facility] and informed them about issue and [facility] stated they only have a 10am time available. FINANCIAL ADVISOR called Nurse Tillman and informed Layne about the ETA time and the time not being to be pushed forward due to [facility] having another transport before.
--- NOTE | 2024-09-13 10:43 | PD.RESDS ---
Planned Discharge Date 09/13/24 DS: Providers Provider Date of admission: 09/09/24 10:58 Primary care physician: Cari Irwin MD Admitting Provider: Nabor Rudd MD Attending Provider on Admission: Marlo Silva DO Consults: 09/09/24 13:21 Referral Registered Dietitian Routine Comment: Tube feeding recommendations 09/09/24 14:30 Referral Physical Therapy Routine Comment: compression fracture T12 vertebral body Physician Instructions: 09/11/24 18:04 Referral Speech Therapy Routine Comment: Please perform swallow evaluation. Attending Provider on DC: Smooth Boland MD Discharging Provider: Smooth Boland MD DS: Diagnosis Problem List Completed Was Problem List Reviewed/Reconciled?: Yes Hospital Course Hospital Course Hospital course: Mainor Goel is a 74-year-old male with a past history of dementia, bronchiectasis ? secondary to coccidiomycosis in ~2020, adult failure to thrive status post PEG tube placement hypertension, HFpEF (EF 50 to 60% on 08/01/2024), Spicer's esophagus, history T12 vertebral body fracture status post ground-level fall who has been at [facility] since 08/2024 and presented on 09/08 for hemoptysis x 1 day without any preceding symptoms, including fever, chills, cough, sore throat, and is not on supplemental oxygen per staff at [facility]. Of note, admitted approximately 1 year ago for similar symptoms for which clamp forklift operator/auricular acupuncturist was consulted. Again spoke to clamp forklift operator/auricular acupuncturist on this admission and given that patient does not have a history of cystic fibrosis, acceptable to treat with single coverage for Pseudomonas and at this time given that hemoglobin is stable no indication for inhaled tranexamic acid. Previously worked up for Aspergillus, TB, Cocci, and Legionella in 2023 all of which were negative. Thus, patient was started on cefepime, for which patient will require total of two weeks for, and azithromycin for three days. Patient comes from [facility] but spouse expressed that if feasible, she would prefer that patient be discharged with home health. Given that patient will require two weeks of antibiotics, PICC line was placed on 09/11 and home health was set up for antibiotic administration. Throughout hospitalization, patient continued to have some episodes of hemoptysis but mild and hemoglobin remained stable (11.8 on admission and 10.2 on discharge), WBC decreased from 20 to 14, no spiked fevers, and sputum cultures resulted negative. Per pulmonology recommendations, he will be discharged with saline nebulizer and albuterol to be used BID and airway clearance with acapella or equivalent and is to continue cefepime per home health instructions. Diagnoses during admission: #History of bronchiectasis secondary to coccidiomycosis ~2020 #Hemoptysis #Failure to thrive, s/p PEG tube placement #Toney's esophagus #Hypertension #HFpEF (EF 50 to 60% with stage I diastolic dysfunction) and moderate to severe TR #T12 vertebral body compression fractures #Dementia Discharge instructions: ? Prescribed saline nebulizer and albuterol twice daily ? Recommend airway clearance with acapella or equivalent ? Continue cefepime per home heatl order instructions ? Continue taking all other home medications as prescribed ? Follow-up with PCP within 1-2 weeks of discharge ? Return to ED if symptoms worsen or recur ----- Plan discussed with attending physician Dr. Sihra Boland MD PGY-1 Internal Medicine Time Spent with Patient Time attestation: Total time spent providing and/or coordinating discharge services: Time spent: Greater than 30 minutes Home Health Home Health Referral Orders: 09/11/24 14:12 Home Health Referral Routine Reason For Exam: PT/Abx Home-Bound The patient must either because of illness or injury, need the aid of supportive devices such as crutches, canes, wheelchairs, and walkers; the use of special transportation; or the assistance of another person in order to leave their place of residence; OR have a condition such that leaving his or her home is medically contraindicated. In addition, the patient also meets the following criteria: patient is normally unable to leave the home and leaving home requires considerable taxing effort. Addendum to Home Health Certification Practitioner's Certification: I certify that the patient has been under my care in the hospital and the care of attending physician (see below). We had a zcxz-ky-xvoz encounter on (see date below). My clinical findings indicate that the patient is home bound per the above criteria and the Home Health Services noted in these orders are medically necessary. The primary reason for the tnuv-xu-wftb encounter is related to the fact that the patient requires home health services. Date Certifying Zejo-us-Onpo Physician Encounter: 09/12/24 Physician's Name who will Assume Oversight for HH Services: Cari Irwin Physician's Phone No.who will Assume Oversight [facility] Service: PHONE OPERATOR - Community Resources: No PT to Evaluate: Yes PT to evaluate and provide a treatmnet plan to increase patient's mobility and strength. Wound Care: No IV Therapy: Yes IV Medication: cefepime IV Dose: 2GM IV Frequency: q8hrs IV Stop Date: 09/23/24 Discontinue PICC Line Once Treatment Complete: Yes RN Safety Evaluation: Yes RN to evaluate and create a plan of care that will produce positive outcomes. Palliative Treatment: No Palliative treatment and evaluate the need for hospice. Home Health Aide - Personal Care: No Home Health Aide to assist with any ADL's. 09/11/24 16:00 Home Health Referral Routine Reason For Exam: Tube Feeding Home-Bound The patient must either because of illness or injury, need the aid of supportive devices such as crutches, canes, wheelchairs, and walkers; the use of special transportation; or the assistance of another person in order to leave their place of residence; OR have a condition such that leaving his or her home is medically contraindicated. In addition, the patient also meets the following criteria: patient is normally unable to leave the home and leaving home requires considerable taxing effort. Addendum to Home Health Certification Practitioner's Certification: I certify that the patient has been under my care in the hospital and the care of attending physician (see below). We had a xyag-ws-xdml encounter on (see date below). My clinical findings indicate that the patient is home bound per the above criteria and the Home Health Services noted in these orders are medically necessary. The primary reason for the owqv-ik-vftl encounter is related to the fact that the patient requires home health services. Date Certifying Xhhm-fo-Lcgy Physician Encounter: 09/09/24 Physician's Name who will Assume Oversight for HH Services: Cari Irwin Physician's Phone No.who will Assume Oversight for Service: [facility] [place] - Community Resources: No PT to Evaluate: No PT to evaluate and provide a treatmnet plan to increase patient's mobility and strength. Wound Care: No Home Health RN - Wound Care Order: Tube Feeds: Osmolite 1.5 at 20 mL/h via PEG tube pump. Advance 10 mL every 12 hours to goal of 45 mL/h for 24 hours. Water flushes 25 mL/h. IV Therapy: No RN Safety Evaluation: Yes RN to evaluate and create a plan of care that will produce positive outcomes. Palliative Treatment: No Palliative treatment and evaluate the need for hospice. Home Health Aide - Personal Care: No Home Health Aide to assist with any ADL's. Exam Vital Signs Temp Pulse Resp BP Pulse Ox O2 Del Method O2 Flow Rate 97.5 F 88 16 135/80 H 94 L Room Air 3 09/13/24 08:00 09/13/24 08:00 09/13/24 08:00 09/13/24 08:00 09/13/24 08:00 09/13/24 08:00 09/11/24 12:26 Narrative Exam General: alert, in no acute distress, able to speak full sentences, hard of hearing HEENT: dry blood around oral mucosa, NC/AT, mucous membranes moist, bilateral sclera anicteric Cardiovascular: regular rate and rhythm, S1/S2 present, no murmurs appreciated Pulmonary: clear to auscultation bilaterally, no rales/rhonchi/wheezes Abdominal: soft, non-tender, non-distended, no rebound/guarding, normal bowel sounds present Musculoskeletal: normal ROM, no peripheral edema Skin: warm and dry, intact, no rashes Discharge Plan Plan Patient Disposition: Home w/HOME HEALTH Patient condition on transfer: Stable Care Plan Goals: ? Prescribed saline nebulizer and albuterol twice daily ? Recommend airway clearance with acapella or equivalent ? Continue cefepime per home heat order instructions ? Continue taking all other home medications as prescribed ? Follow-up with PCP within 1-2 weeks of discharge ? Return to ED if symptoms worsen or recur Prescriptions/Referrals Prescriptions/Med Rec: New albuterol sulfate 90 mcg/actuation HFA aerosol inhaler 2 inh inhalation Q8H PRN (Reason: shortness of breath or wheezing) Qty: 8.5 0RF sodium chloride 0.9 % solution for nebulization 3 ml inhalation Q12H PRN (Reason: shortness of breath or wheezing) 30 Days Qty: 300 0RF Continued atorvastatin 20 mg Tablet 20 mg PO QPM donepezil 10 mg tablet 20 mg PO HS Patient Comments: TAKE 2 TABLET (20 MG) BY ORAL ROUTE ONCE DAILY IN THE EVENING aspirin 81 mg Tablet,Delayed Release (Dr/Ec) 81 mg PO BID PRN (Reason: Pain) montelukast 10 mg Tablet 10 mg PO QPM memantine 5 mg tablet 5 mg PO BID diclofenac sodium 1 % gel 2 - 4 g TOPICAL BID PRN (Reason: Pain) Patient Comments: APPLY 2-4G EXTERNALLY TWICE A DAY NEEDED 30 DAYS cholecalciferol (vitamin D3) [Vitamin D3] 125 mcg (5,000 unit) Tablet 125 mcg PO QDAY quetiapine 25 mg tablet 25 mg PO ONCE HS PRN (Reason: withdrawal symptoms) 30 Days Qty: 30 0RF Patient Comments: TAKE 1 TABLET (25 MG) BY ORAL ROUTE AT NIGHT NEEDED FOR AGITATION sertraline 50 mg tablet 50 mg PO QDAY 30 Days Qty: 30 0RF Patient Comments: TAKE 1 TABLET BY MOUTH EVERY DAY (DME) compression socks, medium Misc See Rx Instructions .ROUTE Qty: 2 0RF Rx Instructions: As directed Referrals: Cari Irwin MD [Primary Care Provider] - Patient/Caregiver Discharge Instructions Print Language: Estonian Stand Alone Forms: Ynes Award Info., Patient Portal Info Letter Discharge Order Discharge Orders: Discharge (Routine); Ordered 09/13/24 Ordered By: Smooth Dunham Nvluis m Quality Discharge Quality Measures VTE prophylaxis (SCDs given hemoptysis) Attestestation Attestation I have discussed and was present for the essential components of the discharge history, physical examination, diagnosis, and discharge treatment plan with the resident. I agree with the patient's discharge care as documented by the resident and amended herein by me. Guy Silva DO. The patient understood all discharge instructions, all questions were answered satisfactorily. The patient was instructed to return to the Emergency Department is symptoms worsened or persisted. Patient will be discharged on a course of cefepime 2 g every 8 hours, see details above, PICC line placed and can be removed at the end of the IV antibiotic course. Patient also discharged with albuterol inhaler and saline nebulizer. Patient was stable, afebrile, tolerating p.o. intake at time of discharge home with home health. Considering the patient has dementia, the patient's was informed to bring the patient back to the emergency department for any worsening or persistent symptoms, he will need close follow-up with his primary care physician within 7 to 10 days of discharge for further evaluation. Although this document has been carefully reviewed, there may still be some phonetic and other typographical errors. These errors are purely grammatical due to imperfections in the software program and should not be construed in any way to compromise the substance of the patient's medical care during this visit.
--- NOTE | 2024-09-14 08:26 | PC.CM ---
Discharge summary sent to [facility] and [facility].
== END 2024-09-13 10:42 | disposition home health service (06) | DRG 191 ==
LOC: SERX 09-09 09:28 → SERHOLD 09-09 11:34 → S3NX 09-09 15:46
PROVIDERS: Admitting Provider Student in an Organized Health Care Education/Training Program; Emergency Provider Emergency Medicine; PCP Hospitalist; Visit Provider Student in an Organized Health Care Education/Training Program
DX: J47.1 Bronchiectasis with (acute) exacerbation (principal); E87.1 Hypo-osmolality and hyponatremia; I50.32 Chronic diastolic (congestive) heart failure; Z68.1 Body mass index [BMI] 19.9 or less, adult; R04.2 Hemoptysis; M48.54XA Collapsed vertebra, not elsewhere classified, thoracic region, initial encounter for fracture; J47.0 Bronchiectasis with acute lower respiratory infection; J18.9 Pneumonia, unspecified organism; R62.7 Adult failure to thrive; W18.30XA Fall on same level, unspecified, initial encounter; E78.00 Pure hypercholesterolemia, unspecified; E86.0 Dehydration; K22.70 Barrett's esophagus without dysplasia; F02.80 Dementia in other diseases classified elsewhere, unspecified severity, without behavioral disturbance, psychotic disturbance, mood disturbance, and anxiety; G30.9 Alzheimer's disease, unspecified; I07.1 Rheumatic tricuspid insufficiency; I11.0 Hypertensive heart disease with heart failure; Z66 Do not resuscitate; Z79.899 Other long term (current) drug therapy; Z93.1 Gastrostomy status; W19.XXXA Unspecified fall, initial encounter; Z79.82 Long term (current) use of aspirin
CPT/HCPCS: 36415; 71045; 71275; 80053; 80061; 81001; 83605; 83735; 84100; 84145; 84443; 84484; 85025; 85610; 85730; 86850; 86900; 86901; 87040; 87086; 87205; 87811; 92610; 93005; 94640; 96361; 96365; 96367; 97162; 99291; A4649; C1894; J0456; J0692; J0696; J1642; J2470; J3490; J7030; J7040; J7050; Q9967; A9270

== ENCOUNTER → 2024-09-18 | Outpatient (CLI) | payer MEDICARE, BC, SELFPAY ==
[2024-09-18 12:59] LABS: Basophils # (Auto) 0.1 Thou/mm3 (0.0-0.2); Basophils % (Auto) 1 % (0-2.5); Eosinophils # (Auto) 0.3 Thou/mm3 (0.0-0.5); Eosinophils % (Auto) 2 % (0-10); Hematocrit 30.1 % (41.0-53.0); Immature Granulocytes % (Auto) 1 % (0-0); Immature Granulocytes Auto 0.09 Thou/mm3 (0.00-0.00); Lymphocytes # (Auto) 1.5 Thou/mm3 (1.0-4.8); Lymphocytes % (Auto) 11 % (10-50); Mean Corpuscular HGB Conc 33.2 g/dl (31.0-37.0); Mean Corpuscular Hemoglobin 27.1 pg (25.0-35.0); Mean Corpuscular Volume 82 fL (80-100); Monocytes # (Auto) 1.7 Thou/mm3 (0.0-0.8); Monocytes % (Auto) 12 % (0-12); Neutrophils # (Auto) 10.2 Thou/mm3 (1.8-7.7); Neutrophils % (Auto) 74 % (37-80); Nucleated Red Blood Cell % 0 /100 WBC (0); Platelet Count 580 Thou/mm3 (140-440); RDW Standard Deviation 47.1 fL (35.1-43.9); Red Blood Count 3.69 Miln/mm3 (4.50-5.90); White Blood Count 13.9 Thou/mm3 (3.8-10.6)
[2024-09-18 13:08] LABS: Alanine Aminotransferase 33 U/L (10-49); Albumin/Globulin Ratio 0.9 (1.2-2.2); Alkaline Phosphatase 126 U/L (46-116); Anion Gap 6 (7-16); Aspartate Amino Transferase 29 U/L (0-34); BUN/Creatinine Ratio 38 Ratio (12-20); Bilirubin,Total 0.3 mg/dL (0.3-1.2); Blood Urea Nitrogen 15 mg/dL (9-23); Calcium 8.3 mg/dL (8.3-10.6); Calcium (Corrected) 9.1 mg/dL (8.5-10.1); Carbon Dioxide 28.5 mMol/L (20.0-31.0); Chloride 94 mMol/L (98-107); Creatinine (Component) 0.4 mg/dL (0.6-1.3); Globulin 3.4 gm/dL (2.3-3.5); Glucose 115 mg/dL (74-106); Osmolality,Calculated 258 (275-295); Potassium 4.7 mMol/L (3.4-5.1); Sodium 128 mMol/L (136-145); Total Protein 6.4 gm/dL (5.7-8.2); eGFR > 60 See Note
== END | disposition home or self-care (01) ==
LOC: SLDO 10:53
PROVIDERS: Referring Provider Nurse Practitioner Family; Visit Provider Nurse Practitioner Family
DX: J06.9 Acute upper respiratory infection, unspecified (principal)
CPT/HCPCS: 36415; 80053; 85025